=== PATIENT | male | born 1945 | race Caucasian/White ===

== ENCOUNTER → 2019-06-02 19:36 | Outpatient (CLI) | payer MEDICARE, SELFPAY ==
--- NOTE | 2019-06-02 19:38 | DI.RAD.S_ITS ---
PROCEDURE: XR HAND LT MIN 3V INDICATIONS: laceration, tendon exposed, r/o open fx TECHNIQUE: 3 views of the hand(s) acquired. COMPARISON: None. FINDINGS: Bones: No fractures or dislocations. Carpal bones are normally aligned. No suspicious bony lesions. Soft tissues: No suspicious soft tissue calcifications. IMPRESSION: No acute fracture. No osseous lesion. If clinical suspicion and/or symptoms persist, further assessment with repeat plainfilms, or advanced imaging (e.g., CT, MRI, or bone scan) may be helpful for further assessment. Dictated by: Maria Andres M.D. on 06/02/2019 at 20:01 Approved by: Maria Andres M.D. on 06/02/2019 at 20:02
== END ==
PROVIDERS: Family Provider Family Medicine; PCP Family Medicine; Visit Provider Physician Assistant
DX: S61.012A Laceration without foreign body of left thumb without damage to nail, initial encounter (principal); X58.XXXA Exposure to other specified factors, initial encounter
CPT/HCPCS: 73130

== ENCOUNTER → 2019-07-20 09:01 | Outpatient (CLI) | payer MEDICARE, SELFPAY ==
[2019-07-20 10:14] LABS: Alanine Aminotransferase 41 IU/L (<50); Albumin 4.2 g/dL (3.5-5.0); Albumin Globulin Ratio 1.5 (1.0-2.8); Alkaline Phosphatase 235 U/L (38-126); Aspartate Aminotransferase 109 IU/L (17-59); BUN Creatinine Ratio 12.9 (6-22); Bilirubin Total 1.3 mg/dL (0.2-1.3); Blood Urea Nitrogen 9 mg/dL (9-20); Calcium 9.2 mg/dL (8.4-10.2); Carbon Dioxide 28 mmol/L (22-32); Chloride 101 mmol/L (98-107); Estimated Glomerular Filt Rate > 60.0 mL/min (>60); Globulin 2.8 g/dL (1.7-4.1); Glucose 96 mg/dL (80-110); HEMOLYSIS < 15 (0-50); Sodium 137 mmol/L (137-145); Uric Acid 6.8 mg/dL (3.5-8.5)
[2019-07-20 10:30] LABS: Vitamin D 25 Hydroxy (D3) < 12.8 ng/mL (30.0-100.0)
== END ==
PROVIDERS: Family Provider Family Medicine; PCP Family Medicine; Visit Provider Student in an Organized Health Care Education/Training Program
DX: M10.9 Gout, unspecified (principal); F10.20 Alcohol dependence, uncomplicated; I10 Essential (primary) hypertension; E55.9 Vitamin D deficiency, unspecified
CPT/HCPCS: 36415; 80053; 82306; 84550

== ENCOUNTER → 2019-07-23 09:12 | Outpatient (CLI) | payer MEDICARE, SELFPAY ==
[2019-07-25 22:36] LABS: Fecal Immunochemical Test NOT DETECTED (NOT DETECTED)
== END ==
PROVIDERS: PCP Student in an Organized Health Care Education/Training Program; Visit Provider Student in an Organized Health Care Education/Training Program
DX: Z12.11 Encounter for screening for malignant neoplasm of colon (principal)
CPT/HCPCS: 82274

== ENCOUNTER 2019-07-30 10:28 | Emergency (ER) | payer MEDICARE, SELFPAY ==
[2019-07-30 10:48] VITALS: BP 130/66; PULSE 63; RESP 15; TEMP 36.4; O2SAT 98
--- NOTE | 2019-07-30 10:55 | DI.CT.S_ITS ---
PROCEDURE: CT HEAD/BRAIN WO CON INDICATIONS: double vision TECHNIQUE: Noncontrast 4.5 mm thick angled axial sections acquired from the foramen magnum to the vertex, with coronal and sagittal reformats. For radiation dose reduction, the following was used: automated exposure control, adjustment of mA and/or kV according to patient size. COMPARISON: None. FINDINGS: Image quality: Excellent. CSF spaces: Basal cisterns are patent. No extra-axial fluid collections. The ventricles are symmetric in size and shape. Brain: No intracranial bleeds or masses. There is cerebral volume loss for age, with resultant ventricular and sulcal prominence. There are periventricular and deep white matter chronic small vessel ischemic changes. There is intracranial internal carotid artery atherosclerosis. Skull and face: Calvarium and visualized facial bones appear intact, without suspicious lesions. Sinuses: There is moderate mucosal thickening seen involving the ethmoid air cells. Mucous retention cysts are seen involving the maxillary sinuses. IMPRESSION: No intracranial abnormality is seen to explain the patient's presenting symptoms. If it would be helpful for clinical management decision making, please consider a dedicated orbit protocol MRI (without and with contrast) for further evaluation (assuming that there is no contraindication). Paranasal sinus disease noted. Dictated by: Talha Langston M.D. on 07/30/2019 at 10:51 Approved by: Talha Langston M.D. on 07/30/2019 at 10:53
--- NOTE | 2019-07-30 10:58 | ED_ITS ---
HPI - Dizziness General Chief Complaint: Dizziness Stated Complaint: very faint was working outside pssible stroke Time Seen by Provider: 07/30/19 10:55 Source: patient Mode of arrival: Ambulatory Limitations: no limitations History of Present Illness HPI Narrative: Patient is a 74-year-old male who was outside putting up [employer] decorations with a bunch of his neighbors feeling sudden onset of lightheadedness. Apparently he became pale very weak and unsteady on his feet. They were able to get him to a car warm him up and within 10 minutes he was back to normal. He has absolutely no complaints in the emergency department. He never passed out he denies chest pain shortness of breath no focal deficits. He states he ate breakfast and he drink the same amount water as he normally does. Otherwise has no complaints Related Data Previous Rx's Medication Instructions Recorded cholecalciferol (vitamin D3) 50,000 unit PO QWEEK 84 Days #12 07/21/19 50,000 unit capsule cap Allergies Allergy/AdvReac Type Severity Reaction Status Date / Time No Known Allergies Allergy Uncoded 06/24/19 09:27 Review of Systems Review of Systems ROS Unobtainable: All systems reviewed & are unremarkable except as noted in HPI and below Constitutional Constitutional: Denies chills, Denies fever(s), Denies lethargy and Denies weakness Eyes Eyes: Denies blind spots, Denies blurry vision, Reports diplopia and Denies itchy eyes ENT Ears, Nose, Mouth, and Throat: Denies change in voice, Denies vertigo, Denies dizziness, Denies neck pain and Denies sore throat Cardiovascular Cardiovascular: Denies syncope, Denies dyspnea and Denies dyspnea on exertion Respiratory Respiratory: Denies cough, Denies dyspnea, Denies dyspnea on exertion and Denies wheezing Gastrointestinal Gastrointestinal: Denies abdominal pain, Denies change in bowel habits, Denies diarrhea, Denies nausea and Denies vomiting Genitourinary Genitourinary: Denies hematuria, Denies flank pain, Denies urinary incontinence and Denies urinary urgency Musculoskeletal Musculoskeletal: Denies neck pain Integumentary/Breasts Skin/Breast: Denies pruritus, Denies erythema, Denies rash and Denies wounds Neurologic Neurologic: Denies confusion, Denies vertigo, Denies dizziness, Denies syncope, Denies lack of coordination, Denies focal weakness and Denies weakness Psychiatric Psychiatric: Denies confusion Allergic/Immunologic Allergic/Immunologic: Denies itchy eyes and Denies wheezing Patient History Medical History (Updated 07/30/19 @ 12:10 by Linnea Dyson DO) Abnormal chest x-ray (Inactive) Chicken pox (Resolved) Chronic back pain (Chronic ~1981) Colon polyps (Inactive) Gout (Acute ~2007) Hearing loss (Chronic ~1983) Hemorrhoid (Inactive ~1984) History of varicose veins (Inactive ~1987) Knee pain (Inactive ~1965) Measles (Resolved) Migraines (Chronic ~1971) Mumps (Resolved) Shoulder pain (Inactive ~1965) Skin cancer (Inactive ~1983) Vision disorder (Chronic) Surgical History (Updated 06/22/19 @ 21:58 by Nicole Toscano) Anesthesia (Resolved) History of back surgery (Resolved ~2005) History of right knee surgery (Resolved ~1990) Family History (Updated 06/22/19 @ 22:00 by Nicole Toscano) Father No problems noted. Mother Cancer Sister Cancer History of heart disease Hypertension Social History Smoking Status: Current every day smoker Exam Initial Vital Signs Initial Vital Signs: Vital Signs Temperature 97.5 F L 07/30/19 10:48 Pulse Rate 63 07/30/19 10:48 Respiratory Rate 15 07/30/19 10:48 Blood Pressure 130/66 07/30/19 10:48 Pulse Oximetry 98 07/30/19 10:48 GENERAL: Alert pleasant elderly gentleman does not appear in any acute distress HEENT: Head atraumatic,EOMI, pupils reactive, face symmetric CARDIOVASCULAR: Regular rate and rhythm without murmurs, rubs or gallops. RESPIRATORY: Breath sounds equal bilaterally, no wheezes rales or rhonchi. ABDOMEN: Soft, nontender. Normoactive bowel sounds all 4 quadrants. No guarding or rebound. EXTREMITIES: Normal range of motion, no clubbing or edema. Neurovascularly intact NEUROLOGICAL: Alert and oriented x4.Normal gait and speech. Cranial nerves II through XII grossly intact. Improvement Specialist strength equal bilaterally good lower extremity strength SKIN: Warm, dry, no laceration, no petechiae, no rashes or lesions. Scores NIH Stroke Scale Level of Conciousness: Alert, keenly responsive Ask month/age: Answers both questions correctly. Open/close eyes, close hand: Performs both tasks correctly Best gaze horizontal: Normal Visual pelletier: No visual loss Facial palsy: Normal symetrical movement Left arm drift: No drift for full 10 sec Right arm drift: No drift for full 10 sec Left leg drift: No drift for full 10 sec Right leg drift: No drift for full 10 sec Limb ataxia: Absent Sensory on face/arms/legs: Normal, no sensory loss Best language: No aphasia, normal Dysarthria: Normal Extinction or inattention: No abnormality Total NIH Stroke scale score: 0 Course Orders Ordered: ED Orders 07/30/19 10:55 CT head/brain wo con Stat Complete Blood Count AUTO DIFF Stat Comprehensive Metabolic Panel Stat Partial Thromboplastin Time Stat Prothrombin Time INR Stat Discontinued Medications Sodium Chloride (Normal Saline 0.9%) 1,000 mls @ 1,000 mls/hr IV CONT ALEXSANDER Last Infusion: 07/30/19 12:23 Dose: 0 mls/hr Documented by: Admin: 07/30/19 11:32 Dose: 1,000 mls/hr Documented by: ELMOARRINGTO Vital Signs Vital signs: Vital Signs - 8 hr 07/30/19 10:48 07/30/19 11:06 07/30/19 11:50 Temperature 97.5 F L Pulse Rate 63 67 73 Respiratory Rate 15 17 Blood Pressure 130/66 Blood Pressure [Left Arm] 103/49 L 133/82 Pulse Oximetry 98 97 96 07/30/19 12:23 Temperature Pulse Rate 74 Respiratory Rate 17 Blood Pressure Blood Pressure [Left Arm] 151/80 H Pulse Oximetry 97 MDM - Dizziness Lab Data Attestation: I reviewed the patient's lab results. Result diagrams: 07/30/19 10:55 07/30/19 10:55 Labs: Lab Results 07/30/19 07/30/19 07/30/19 Range/Units 10:55 10:55 10:55 WBC 7.2 (4.5-11.0) X10^3/uL RBC 4.52 (4.5-5.9) X10^6/uL Hgb 15.0 (13.5-17.5) g/dL Hct 44.0 (41-53) % MCV 97.3 (80-100) fL MCH 33.2 (26-34) PG MCHC 34.1 (30-36) % RDW 13.9 (11.6-14.8) % Plt Count 215 (150-400) X10^3/uL Neut % (Auto) 69.4 (50-75) % Lymph % (Auto) 17.9 L (25-40) % [place] % (Auto) 10.8 (3-14) % Eos % (Auto) 1.2 L (2-4) % Baso % (Auto) 0.7 (0-2) % Neut # (Auto) 5000 (0728-1122) /uL Lymph # (Auto) 1300 (2385-9227) /uL [place] # (Auto) 800 (0-900) /uL Eos # (Auto) 100 (0-450) /uL Baso # (Auto) 0 (0-100) /uL PT 12.9 H (10.1-12.7) SECONDS INR 1.1 (0.9-1.3) APTT 32 (26.4-36.2) SECONDS Sodium 138 (137-145) mmol/L Potassium 3.7 (3.4-5.1) mmol/L Chloride 102 (98-107) mmol/L Carbon Dioxide 25 (22-32) mmol/L BUN 14 (9-20) mg/dL Creatinine 0.70 (0.66-1.25) mg/dL Estimated GFR > 60.0 (>60) mL/min BUN/Creatinine Ratio 20.0 (6-22) Glucose 120 H (80-110) mg/dL Calcium 9.0 (8.4-10.2) mg/dL Total Bilirubin 1.5 H (0.2-1.3) mg/dL AST 90 H (17-59) IU/L ALT 35 (<50) IU/L Alkaline Phosphatase 227 H (38-126) U/L Total Protein 7.0 (6.3-8.2) g/dL Albumin 4.2 (3.5-5.0) g/dL Globulin 2.8 (1.7-4.1) g/dL Albumin/Globulin Ratio 1.5 (1.0-2.8) Point of Care Testing Glucose POC [address] scan - head: Radiologist's impression: PROCEDURE: CT HEAD/BRAIN WO CON INDICATIONS: double vision TECHNIQUE: Noncontrast 4.5 mm thick angled axial sections acquired from the foramen magnum to the vertex, with coronal and sagittal reformats. For radiation dose reduction, the following was used: automated exposure control, adjustment of mA and/or kV according to patient size. COMPARISON: None. FINDINGS: Image quality: Excellent. CSF spaces: Basal cisterns are patent. No extra-axial fluid collections. The ventricles are symmetric in size and shape. Brain: No intracranial bleeds or masses. There is cerebral volume loss for age, with resultant ventricular and sulcal prominence. There are periventricular and deep white matter chronic small vessel ischemic changes. There is intracranial internal carotid artery atherosclerosis. Skull and face: Calvarium and visualized facial bones appear intact, without suspicious lesions. Sinuses: There is moderate mucosal thickening seen involving the ethmoid air cells. Mucous retention cysts are seen involving the maxillary sinuses. IMPRESSION: No intracranial abnormality is seen to explain the patient's presenting symptoms. If it would be helpful for clinical management decision making, please consider a dedicated orbit protocol MRI (without and with contrast) for further evaluation (assuming that there is no contraindication). Paranasal sinus disease noted. Dictated by: Talha Langston M.D. on 07/30/2019 at 10:51 ECG Data Attestation: I personally reviewed and interpreted this ECG as follows: Prior ECG tracings: not available for review Interpretation: Normal sinus rhythm rate [address] elevations or depressions or T-wave inversions no prior to compare p.r. interval 160 QRS 129 QTC 446 MDM Narrative Medical decision making narrative: The patient's symptoms started and stopped abruptly. It sounds almost like vasovagal like reaction. He was completely back to normal and about 10 minutes and as soon as he sat down. He says that he did not quite eat his normal food yesterday due to the holiday, lots of increased sugar. He has felt back to his normal self ever since he has been in the emergency department and feels ready and able to go home. Discharge Plan Departure Patient Disposition: Home Clinical Impression: Near syncope Discharge Date/Time: 07/30/19 12:25 Instructions: DI for Syncope in Adults (Fainting) Activity Restrictions/Additional Instructions: *You have been diagnosed with near syncope *What to do: At this time blood work and CT scan of head overall reassuring. Increase fluid intake *Continue to take medications as directed *Follow up with your primary care provider in 2-3 days *Return to ER if you should have recurrent episode, passing out, chest pain, palpitations weakness difficulty speaking or any new, worsening or concerning symptoms Prescriptions: No Action cholecalciferol (vitamin D3) 50,000 unit capsule 50,000 unit PO QWEEK 84 Days Qty: 12 RF: 0 Referrals: Sb Silva MD [Primary Care Provider] -
[2019-07-30 11:06] VITALS: BP 103/49; PULSE 67; O2SAT 97
[2019-07-30 11:16] LABS: INR 1.1 (0.9-1.3); Prothrombin Time 12.9 SECONDS (10.1-12.7)
[2019-07-30 11:17] LABS: Add Manual Diff / Slide Review NO; Basophils Absolute Auto 0 /uL (0-100); Basophils Percent Auto 0.7 % (0-2); Eosinophils Absolute Auto 100 /uL (0-450); Eosinophils Percent Auto 1.2 % (2-4); Lymphocytes Absolute Auto 1300 /uL (1100-4500); Lymphocytes Percent Auto 17.9 % (25-40); Mean Corpuscular HGB Conc 34.1 % (30-36); Mean Corpuscular Hemoglobin 33.2 PG (26-34); Mean Corpuscular Volume 97.3 fL (80-100); Monocytes Absolute Auto 800 /uL (0-900); Monocytes Percent Auto 10.8 % (3-14); Neutrophils Absolute Auto 5000 /uL (1500-7000); Neutrophils Percent Auto 69.4 % (50-75); Platelet Count 215 X10^3/uL (150-400); Red Blood Cell Count 4.52 X10^6/uL (4.5-5.9); Red Cell Distribution Width 13.9 % (11.6-14.8); White Blood Cell Count 7.2 X10^3/uL (4.5-11.0)
[2019-07-30 11:18] LABS: PTT Partial Thromboplastin Tim 32 SECONDS (26.4-36.2)
[2019-07-30 11:22] LABS: Alanine Aminotransferase 35 IU/L (<50); Albumin 4.2 g/dL (3.5-5.0); Albumin Globulin Ratio 1.5 (1.0-2.8); Alkaline Phosphatase 227 U/L (38-126); Aspartate Aminotransferase 90 IU/L (17-59); Bilirubin Total 1.5 mg/dL (0.2-1.3); Blood Urea Nitrogen 14 mg/dL (9-20); Carbon Dioxide 25 mmol/L (22-32); Chloride 102 mmol/L (98-107); Estimated Glomerular Filt Rate > 60.0 mL/min (>60); Globulin 2.8 g/dL (1.7-4.1); Glucose 120 mg/dL (80-110); HEMOLYSIS < 15 (0-50); Potassium 3.7 mmol/L (3.4-5.1); Sodium 138 mmol/L (137-145)
[2019-07-30] MEDS: SODIUM CHLORIDE 0.9% 1,000 ML 1000 ML IV (11:32)
[2019-07-30 11:50] VITALS: BP 133/82; PULSE 73; RESP 17; O2SAT 96
[2019-07-30 12:23] VITALS: BP 151/80; PULSE 74; RESP 17; O2SAT 97
== END 2019-07-30 12:25 | disposition home or self-care (01) ==
PROVIDERS: Emergency Provider Emergency Medicine; PCP Student in an Organized Health Care Education/Training Program
DX: R55 Syncope and collapse (principal); H53.2 Diplopia
CPT/HCPCS: 36415; 70450; 80053; 82962; 85025; 85610; 85730; 93005; 99283; 99285

== ENCOUNTER → 2019-09-13 12:33 | Outpatient (CLI) | payer MEDICARE, SELFPAY ==
[2019-09-13 14:26] LABS: Phosphorous 5.1 mg/dL (2.3-3.7)
[2019-09-15 16:52] LABS: Parathyroid Hormone Int 32 pg/mL (14-64)
[2019-09-16 18:09] LABS: Alkaline Phosphatase 177 U/L (40-115)
[2019-09-18 08:39] LABS: Hepatitis A Antibody IgM NONREACTIVE; Hepatitis Acute Panel Interp 0.01; Hepatitis B Core Antibody IgM NONREACTIVE; Hepatitis B Surface Antigen NONREACTIVE; Hepatitis C Antibody NONREACTIVE
== END ==
PROVIDERS: PCP Student in an Organized Health Care Education/Training Program; Visit Provider Student in an Organized Health Care Education/Training Program
DX: E55.9 Vitamin D deficiency, unspecified (principal); F10.20 Alcohol dependence, uncomplicated
CPT/HCPCS: 36415; 80074; 83516; 83970; 84080; 84100

== ENCOUNTER → 2019-10-31 08:13 | Outpatient (CLI) | payer MEDICARE, SELFPAY ==
[2019-10-31 09:10] LABS: Alanine Aminotransferase 43 IU/L (<50); Albumin 4.3 g/dL (3.5-5.0); Albumin Globulin Ratio 1.3 (1.0-2.8); Alkaline Phosphatase 186 U/L (38-126); Aspartate Aminotransferase 72 IU/L (17-59); BUN Creatinine Ratio 22.9 (6-22); Bilirubin Total 1.4 mg/dL (0.2-1.3); Blood Urea Nitrogen 16 mg/dL (9-20); Carbon Dioxide 28 mmol/L (22-32); Chloride 98 mmol/L (98-107); Estimated Glomerular Filt Rate > 60.0 mL/min (>60); Globulin 3.4 g/dL (1.7-4.1); Glucose 92 mg/dL (80-110); HEMOLYSIS < 15 (0-50); Phosphorous 4.1 mg/dL (2.3-3.7); Potassium 4.2 mmol/L (3.4-5.1); Sodium 138 mmol/L (137-145); Total Protein 7.7 g/dL (6.3-8.2)
[2019-10-31 09:42] LABS: Vitamin D 25 Hydroxy (D3) 80.8 ng/mL (30.0-100.0)
== END ==
PROVIDERS: PCP Student in an Organized Health Care Education/Training Program; Referring Provider Student in an Organized Health Care Education/Training Program; Visit Provider Student in an Organized Health Care Education/Training Program
DX: E55.9 Vitamin D deficiency, unspecified (principal); R94.5 Abnormal results of liver function studies
CPT/HCPCS: 36415; 80053; 82306; 84100

== ENCOUNTER → 2020-09-28 14:38 | Outpatient (CLI) | payer MEDICARE, SELFPAY ==
[2020-09-28] MEDS: COVID-19 VACC #1, MRNA(MOD) 100 MCG/0.5 ML VIAL IM (15:01)
== END ==
PROVIDERS: PCP Student in an Organized Health Care Education/Training Program; Visit Provider Internal Medicine
DX: Z23 Encounter for immunization (principal)
CPT/HCPCS: 0011A; 91301

== ENCOUNTER → 2020-10-26 14:42 | Outpatient (CLI) | payer MEDICARE, SELFPAY ==
[2020-10-26] MEDS: COVID-19 VACC #2, MRNA(MOD) 100 MCG/0.5 ML VIAL IM (14:49)
== END ==
PROVIDERS: PCP Student in an Organized Health Care Education/Training Program; Visit Provider Internal Medicine
DX: Z23 Encounter for immunization (principal)
CPT/HCPCS: 0012A; 91301

== ENCOUNTER → 2020-11-08 10:55 | Outpatient (CLI) | payer MEDICARE, SELFPAY ==
[2020-11-08 11:55] LABS: Hematocrit 44.7 % (41-53); Hemoglobin 15.2 g/dL (13.5-17.5); Mean Corpuscular HGB Conc 33.9 % (30-36); Mean Corpuscular Hemoglobin 31.4 PG (26-34); Mean Corpuscular Volume 92.8 fL (80-100); Platelet Count 181 X10^3/uL (150-400); Red Blood Cell Count 4.82 X10^6/uL (4.5-5.9); Red Cell Distribution Width 14.4 % (11.6-14.8); White Blood Cell Count 6.5 X10^3/uL (4.5-11.0)
[2020-11-08 13:03] LABS: Alanine Aminotransferase 21 IU/L (<50); Albumin Globulin Ratio 1.3 (1.0-2.8); Alkaline Phosphatase 409 U/L (38-126); Aspartate Aminotransferase 54 IU/L (17-59); BUN Creatinine Ratio 17.6 (6-22); Bilirubin Direct 0.6 mg/dL (0.0-0.4); Bilirubin Total 2.2 mg/dL (0.2-1.3); Blood Urea Nitrogen 9 mg/dL (9-20); Calcium 9.3 mg/dL (8.4-10.2); Carbon Dioxide 26 mmol/L (22-32); Chloride 103 mmol/L (98-107); Estimated Glomerular Filt Rate > 60.0 mL/min (>60); Glucose 95 mg/dL (80-110); HEMOLYSIS < 15 (0-50); Potassium 3.9 mmol/L (3.4-5.1); Sodium 137 mmol/L (137-145)
== END ==
PROVIDERS: PCP Student in an Organized Health Care Education/Training Program; Referring Provider Student in an Organized Health Care Education/Training Program; Visit Provider Student in an Organized Health Care Education/Training Program
DX: F10.20 Alcohol dependence, uncomplicated (principal); R94.5 Abnormal results of liver function studies
CPT/HCPCS: 36415; 80053; 82248; 85027

== ENCOUNTER 2020-12-10 16:32 | Emergency (ER) | payer MEDICARE, SELFPAY ==
[2020-12-10] VITALS (7 sets, daily range): BP systolic 137–164; BP diastolic 82–87; PULSE 93–106; RESP 18–27; TEMP 36.8; O2SAT 91–96; BMI 29.0
[2020-12-10 17:31] LABS: Add Manual Diff / Slide Review NO; Basophils Absolute Auto 100 /uL (0-100); Basophils Percent Auto 0.8 % (0-2); Eosinophils Absolute Auto 100 /uL (0-450); Eosinophils Percent Auto 0.7 % (2-4); Hemoglobin 15.7 g/dL (13.5-17.5); Lymphocytes Absolute Auto 1000 /uL (1100-4500); Lymphocytes Percent Auto 14.9 % (25-40); Mean Corpuscular HGB Conc 33.5 % (30-36); Mean Corpuscular Hemoglobin 30.5 PG (26-34); Monocytes Absolute Auto 1000 /uL (0-900); Monocytes Percent Auto 14.4 % (3-14); Neutrophils Absolute Auto 4800 /uL (1500-7000); Neutrophils Percent Auto 69.2 % (50-75); Platelet Count 230 X10^3/uL (150-400); Red Blood Cell Count 5.16 X10^6/uL (4.5-5.9); Red Cell Distribution Width 14.2 % (11.6-14.8); White Blood Cell Count 6.9 X10^3/uL (4.5-11.0)
[2020-12-10 17:43] LABS: Lactate (Lactic Acid) 1.7 mmol/L (0.7-2.1)
[2020-12-10 17:45] LABS: Alanine Aminotransferase 31 IU/L (<50); Albumin 3.7 g/dL (3.5-5.0); Albumin Globulin Ratio 1.2 (1.0-2.8); Alkaline Phosphatase 505 U/L (38-126); Aspartate Aminotransferase 59 IU/L (17-59); BUN Creatinine Ratio 15.6 (6-22); Blood Urea Nitrogen 7 mg/dL (9-20); Calcium 9.2 mg/dL (8.4-10.2); Carbon Dioxide 21 mmol/L (22-32); Chloride 101 mmol/L (98-107); Estimated Glomerular Filt Rate > 60.0 mL/min (>60); Globulin 3.1 g/dL (1.7-4.1); Glucose 91 mg/dL (80-110); Lipase 109 U/L (23-300); Sodium 134 mmol/L (137-145); Total Protein 6.8 g/dL (6.3-8.2)
--- NOTE | 2020-12-10 17:47 | DI.CT.S_ITS ---
PROCEDURE: CT ABDOMEN PELVIS W CON INDICATIONS: IV contrast only/abdominal pain and swelling TECHNIQUE: After the administration of intravenous contrast, 5 mm thick sections acquired from the diaphragm to the symphysis. 5 mm coronal and sagittal reformats were acquired. For radiation dose reduction, the following was used: automated exposure control, adjustment of mA and/or kV according to patient size. COMPARISON: None. FINDINGS: Image quality: Excellent. ABDOMEN: Lung bases: Lung bases are clear except for posterior layering small left pleural effusion water in density and free-flowing in appearance. Heart size is normal. Solid organs: Liver is mildly reduced in size, nodular in margination, and near normal in enhancement. The spleen is mildly enlarged and normal in enhancement. Gallbladder contains posterior layering small calcified stones. Biliary system is non dilated. Pancreas enhances normally. Spleen is normal in size and enhancement. No adrenal nodules. Kidneys demonstrate normal size and enhancement, without hydronephrosis. Peritoneum and bowel: Bowel loops demonstrate normal wall thickness and caliber. No free air. There is generalized 4 quadrant ascites. Nodes and vessels: No retroperitoneal or mesenteric adenopathy by size criteria. Aorta and inferior vena cava are normal in size. Miscellaneous: No ventral hernias. PELVIS: Genitourinary: Bladder wall thickness is normal. Miscellaneous: No inguinal hernias or adenopathy. A moderately large amount of ascites is again noted within the pelvis. Bones: No suspicious bony lesions. No vertebral body compression fractures. IMPRESSION: Small pleural effusion on the left. Secondary mild left lung base atelectasis. A relatively large amount of ascites is present, in the setting of a small nodular liver and AA mildly enlarged spleen. Portal hypertension and secondary ascites is the presumed cause. Note is made of multiple small dependent layering gallstones within the gallbladder lumen. Dictated by: Noe Recio M.D. on 12/10/2020 at 18:10 Approved by: Noe Recio M.D. on 12/10/2020 at 18:17
--- NOTE | 2020-12-10 17:50 | ED_ITS ---
HPI - Abdominal Pain General Stated Complaint: BLOCKED BOWEL STOMACH SWELLING Time Seen by Provider: 12/10/20 17:30 Source: patient Mode of arrival: Ambulatory Limitations: no limitations History of Present Illness HPI narrative: Patient complains of abdominal swelling and distention for the past 2 months getting worse in the past week. No bowel movement in the past 1 week. Patient admits daily alcohol use/abuse. Patient states he knows he has elevated bilirubin because his family doctor has been following his liver studies. No hallucinations no falls or injuries. No black stools. No trouble breathing. Related Data Home Medications Medication Instructions Recorded Confirmed No Known Home Medications 11/08/20 11/08/20 Allergies Allergy/AdvReac Type Severity Reaction Status Date / Time No Known Drug Allergies Allergy Verified 12/10/20 17:03 Review of Systems Review of Systems Narrative: GENERAL: Denies chills, fatigue, malaise, fever, sweats. HEENT: Denies sinus pain, ear pain, sore throat RESPIRATORY: Denies dyspnea, cough CARDIOVASCULAR: Denies chest pain, palpitations GASTROINTESTINAL: Denies nausea, vomiting, complains constipation and abdominal pain : Denies dysuria, frequency, hematuria MUSCULOSKELETAL: denies muscle or bony pain SKIN: Denies rash, skin lesions NEUROLOGIC: Denies weakness, numbness ROS Unobtainable: All systems reviewed & are unremarkable except as noted in HPI and below Patient History Medical History Abnormal chest x-ray Chicken pox Chronic back pain (~1981) Colon polyps Gout (~2007) Hearing loss (~1983) Hemorrhoid (~1984) History of varicose veins (~1987) Knee pain (~1965) 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) Measles Migraines (~1971) Mumps Shoulder pain (~1965) Skin cancer (~1983) Vision disorder Surgical History Anesthesia History of back surgery (~2005) History of right knee surgery (~1990) Family History Father No problems noted. Mother Cancer Sister Cancer History of heart disease Hypertension Social History Smoking Status: Current every day smoker Smoking Status: Current every day smoker alcohol intake frequency: 3 or more drinks per day Alcohol type: hard liquor Substance Use Type: does not use Exam Narrative Exam Narrative: GENERAL: in no distress, not toxic not dyspneic HEAD: Normocephalic. EYES: Pupils equal round No scleral icterus. No injection no discharge no icterus ENT: Mucous membranes moist. NECK: Trachea midline. CARDIOVASCULAR: Regular rate and rhythm without murmurs RESPIRATORY: Clear to auscultation. Breath sounds equal bilaterally. No wheezes, rales, or rhonchi. GASTROINTESTINAL: Abdomen soft, non-tender, extensive distension. Nontender. Bowel sounds present. EXTREMITIES: No gross deformities. BACK: No flank tenderness. NEURO: AOx4. SKIN: Warm and dry, no jaundice PSYCH: Not anxious, is cooperative Initial Vital Signs Initial Vital Signs: Vital Signs Pulse Rate 102 H 12/10/20 16:55 Blood Pressure 137/84 12/10/20 16:55 Pulse Oximetry 96 12/10/20 16:55 Course Course Course Narrative: No new issues during course of stay Orders Ordered: ED Orders 12/10/20 17:01 EKG-12 Lead Stat 12/10/20 17:05 Complete Blood Count AUTO DIFF Stat Comprehensive Metabolic Panel Stat Lactate (Lactic Acid) Stat Lipase Stat Partial Thromboplastin Time Stat Procalcitonin Stat Prothrombin Time INR Stat 12/10/20 17:47 CT abdomen pelvis w con Stat Discontinued Medications Sodium Chloride (Normal Saline 0.9%) 250 mls @ 1,000 mls/hr IV NOW ONE Stop: 12/10/20 18:01 Last Admin: 12/10/20 18:11 Dose: 1,000 mls/hr Documented by: RUBIN Ondansetron HCl (Ondansetron 4 Mg/2 Ml Inj) 4 mg IV NOW ONE Stop: 12/10/20 17:02 Last Admin: 12/10/20 18:10 Dose: 4 mg Documented by: RUBIN Ondansetron HCl (Ondansetron 4 Mg/2 Ml Inj) 4 mg IV NOW ONE Stop: 12/10/20 18:07 Last Admin: 12/10/20 18:11 Dose: Not Given Documented by: RUBIN Reevaluation(s) Reevaluation #1: Reviewed results with patient. Informed him ascites likely from chronic alcohol use. Not toxic. Paracentesis can be done in office and with GI referral. He agrees with treatment plan. In no distress. Time: 18:44 Consultations Consultation #1: Spoke with primary care boot and saddle repair person, Dr. Martinez, she will inform Dr. Coyne in the morning for follow-up this week and to get GI referral and paracentesis. Patient in no distress. He does not want admit tonight. Time: 18:58 Vital Signs Vital signs: Vital Signs - 8 hr 12/10/20 16:55 12/10/20 17:00 12/10/20 17:08 Temperature 98.2 F Pulse Rate 102 H 99 H 106 H Respiratory Rate 18 Blood Pressure 137/84 137/84 Pulse Oximetry 96 94 95 12/10/20 17:30 12/10/20 18:08 12/10/20 18:09 Temperature Pulse Rate 97 H 94 H 95 H Respiratory Rate 23 27 H Blood Pressure 164/87 H Pulse Oximetry 91 95 96 12/10/20 18:30 Temperature Pulse Rate 93 H Respiratory Rate 27 H Blood Pressure 141/82 H Pulse Oximetry 94 MDM - Abdominal Pain Differential Diagnosis Differential diagnosis: Likely abdominal pain, constipation and other (Ascites) Medical Records Attestation: I reviewed the patient's medical records. Lab Data Attestation: I reviewed the patient's lab results. Result diagrams: 12/10/20 17:05 12/10/20 17:05 Labs: Lab Results 12/10/20 12/10/20 12/10/20 Range/Units 17:05 17:05 17:05 WBC 6.9 (4.5-11.0) X10^3/uL RBC 5.16 (4.5-5.9) X10^6/uL Hgb 15.7 (13.5-17.5) g/dL Hct 47.0 (41-53) % MCV 91.0 (80-100) fL MCH 30.5 (26-34) PG MCHC 33.5 (30-36) % RDW 14.2 (11.6-14.8) % Plt Count 230 (150-400) X10^3/uL Neut % (Auto) 69.2 (50-75) % Lymph % (Auto) 14.9 L (25-40) % [place] % (Auto) 14.4 H (3-14) % Eos % (Auto) 0.7 L (2-4) % Baso % (Auto) 0.8 (0-2) % Neut # (Auto) 4800 (5047-0423) /uL Lymph # (Auto) 1000 L (7825-5927) /uL [place] # (Auto) 1000 H (0-900) /uL Eos # (Auto) 100 (0-450) /uL Baso # (Auto) 100 (0-100) /uL PT 17.5 H (10.1-12.7) SECONDS INR 1.5 H (0.9-1.3) APTT 37 H D (26.4-36.2) SECONDS Sodium 134 L (137-145) mmol/L Potassium 4.0 (3.4-5.1) mmol/L Chloride 101 (98-107) mmol/L Carbon Dioxide 21 L (22-32) mmol/L BUN 7 L (9-20) mg/dL Creatinine 0.45 L (0.66-1.25) mg/dL Estimated GFR > 60.0 (>60) mL/min BUN/Creatinine Ratio 15.6 (6-22) Glucose 91 (80-110) mg/dL Lactate (0.7-2.1) mmol/L Calcium 9.2 (8.4-10.2) mg/dL Total Bilirubin 3.0 H (0.2-1.3) mg/dL AST 59 (17-59) IU/L ALT 31 (<50) IU/L Alkaline Phosphatase 505 H (38-126) U/L Total Protein 6.8 (6.3-8.2) g/dL Albumin 3.7 (3.5-5.0) g/dL Globulin 3.1 (1.7-4.1) g/dL Albumin/Globulin Ratio 1.2 (1.0-2.8) Lipase 109 (23-300) U/L Procalcitonin 0.13 (<0.5) ng/mL 12/10/20 Range/Units 17:05 WBC (4.5-11.0) X10^3/uL RBC (4.5-5.9) X10^6/uL Hgb (13.5-17.5) g/dL Hct (41-53) % MCV (80-100) fL MCH (26-34) PG MCHC (30-36) % RDW (11.6-14.8) % Plt Count (150-400) X10^3/uL Neut % (Auto) (50-75) % Lymph % (Auto) (25-40) % [place] % (Auto) (3-14) % Eos % (Auto) (2-4) % Baso % (Auto) (0-2) % Neut # (Auto) (4946-3254) /uL Lymph # (Auto) (8196-0710) /uL [place] # (Auto) (0-900) /uL Eos # (Auto) (0-450) /uL Baso # (Auto) (0-100) /uL PT (10.1-12.7) SECONDS INR (0.9-1.3) APTT (26.4-36.2) SECONDS Sodium (137-145) mmol/L Potassium (3.4-5.1) mmol/L Chloride (98-107) mmol/L Carbon Dioxide (22-32) mmol/L BUN (9-20) mg/dL Creatinine (0.66-1.25) mg/dL Estimated GFR (>60) mL/min BUN/Creatinine Ratio (6-22) Glucose (80-110) mg/dL Lactate 1.7 (0.7-2.1) mmol/L Calcium (8.4-10.2) mg/dL Total Bilirubin (0.2-1.3) mg/dL AST (17-59) IU/L ALT (<50) IU/L Alkaline Phosphatase (38-126) U/L Total Protein (6.3-8.2) g/dL Albumin (3.5-5.0) g/dL Globulin (1.7-4.1) g/dL Albumin/Globulin Ratio (1.0-2.8) Lipase (23-300) U/L Procalcitonin (<0.5) ng/mL Imaging Data CT scan - abdomen/pelvis: Radiologist's Impression: [address] [id number] Scan ReportSigned Patient: Imtiaz Barbosa LMR#: [id number]: 4Acct:[id number]/Sex: 75 / MDate of Service: 12/10/20Loc: EDAccession Number: [id number] Procedure: CT abdomen pelvis w con Ordering Provider: Owen Kitchen MD PROCEDURE: CT ABDOMEN PELVIS W CON INDICATIONS: IV contrast only/abdominal pain and swelling TECHNIQUE: After the administration of intravenous contrast, 5 mm thick sections acquired from the diaphragm to the symphysis. 5 mm coronal and sagittal reformats were acquired. For radiation dose reduction, the following was used: automated exposure control, adjustment of mA and/or kV according to patient size. COMPARISON: None. FINDINGS: Image quality: Excellent. ABDOMEN: Lung bases: Lung bases are clear except for posterior layering small left pleural effusion water in density and free-flowing in appearance. Heart size is normal. Solid organs: Liver is mildly reduced in size, nodular in margination, and near normal in enhancement. The spleen is mildly enlarged and normal in enhancement. Gallbladder contains posterior layering small calcified stones. Biliary system is non dilated. Pancreas enhances normally. Spleen is normal in size and enhancement. No adrenal nodules. Kidneys demonstrate normal size and enhancement, without hydronephrosis. Peritoneum and bowel: Bowel loops demonstrate normal wall thickness and caliber. No free air. There is generalized 4 quadrant ascites. Nodes and vessels: No retroperitoneal or mesenteric adenopathy by size criteria. Aorta and inferior vena cava are normal in size. Miscellaneous: No ventral hernias. PELVIS: Genitourinary: Bladder wall thickness is normal. Miscellaneous: No inguinal hernias or adenopathy. A moderately large amount of ascites is again noted within the pelvis. Bones: No suspicious bony lesions. No vertebral body compression fractures. IMPRESSION: Small pleural effusion on the left. Secondary mild left lung base atelectasis. A relatively large amount of ascites is present, in the setting of a small nodular liver and AA mildly enlarged spleen. Portal hypertension and secondary ascites is the presumed cause. Note is made of multiple small dependent layering gallstones within the gallbladder lumen. Dictated by: Noe Recio M.D. on 12/10/2020 at 18:10 Approved by: Noe Recio M.D. on 12/10/2020 at 18:17 ECG Data Attestation: I personally reviewed and interpreted this ECG as follows: Interpretation: Sinus rhythm. Right bundle branch block. Rate 95. No ST elevation MDM Narrative Medical decision making narrative: Ongoing 2 months. No altered mental status. Not toxic. No dyspnea Appropriate for discharge home. Patient does not want stay in the hospital. Ongoing for 2 months, appropriate for GI for paracentesis or in primary care office. 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 Return if worse if any questions or concerns or if any confusion or nausea or vomiting Prescriptions: No Action No Known Home Medications RF: 0 Referrals: Sb Silva MD [Primary Care Provider] -
[2020-12-10 18:01] LABS: Procalcitonin 0.13 ng/mL (<0.5)
[2020-12-10 18:09] LABS: INR 1.5 (0.9-1.3); Prothrombin Time 17.5 SECONDS (10.1-12.7)
[2020-12-10] MEDS: ONDANSETRON 4 MG/2 ML INJ IV (18:10)
[2020-12-10] MEDS: SODIUM CHLORIDE 0.9% 250 ML 1000 ML IV (18:11)
[2020-12-10 18:12] LABS: PTT Partial Thromboplastin Tim 37 SECONDS (26.4-36.2)
== END 2020-12-10 19:15 | disposition home or self-care (01) ==
PROVIDERS: Emergency Provider Emergency Medicine; PCP Student in an Organized Health Care Education/Training Program
DX: K70.11 Alcoholic hepatitis with ascites (principal)
CPT/HCPCS: 36415; 74177; 80053; 83605; 83690; 84145; 85025; 85610; 85730; 93005; 93010; 96361; 96374; 99284; J2405

== ENCOUNTER → 2021-01-18 14:01 | Outpatient (CLI) | payer MEDICARE, SELFPAY ==
[2021-01-18 14:27] LABS: INR 1.5 (0.9-1.3); Prothrombin Time 16.8 SECONDS (10.1-12.7)
[2021-01-18 14:52] LABS: Alanine Aminotransferase 31 IU/L (<50); Albumin 3.3 g/dL (3.5-5.0); Albumin Globulin Ratio 1.1 (1.0-2.8); Alkaline Phosphatase 405 U/L (38-126); Aspartate Aminotransferase 48 IU/L (17-59); BUN Creatinine Ratio 22.9 (6-22); Bilirubin Direct 0.6 mg/dL (0.0-0.4); Bilirubin Total 1.5 mg/dL (0.2-1.3); Blood Urea Nitrogen 16 mg/dL (9-20); Calcium 9.2 mg/dL (8.4-10.2); Carbon Dioxide 28 mmol/L (22-32); Chloride 103 mmol/L (98-107); Estimated Glomerular Filt Rate > 60.0 mL/min (>60); Globulin 2.9 g/dL (1.7-4.1); Glucose 105 mg/dL (80-110); HEMOLYSIS < 15 (0-50); Potassium 4.1 mmol/L (3.4-5.1); Sodium 138 mmol/L (137-145); Total Protein 6.2 g/dL (6.3-8.2)
[2021-01-18 14:59] LABS: Prealbumin 10.3 mg/dL (17.6-36.0)
== END ==
PROVIDERS: PCP Student in an Organized Health Care Education/Training Program; Referring Provider Student in an Organized Health Care Education/Training Program; Visit Provider Student in an Organized Health Care Education/Training Program
DX: F10.21 Alcohol dependence, in remission (principal); K70.11 Alcoholic hepatitis with ascites; K70.31 Alcoholic cirrhosis of liver with ascites
CPT/HCPCS: 36415; 80053; 82248; 84134; 85610

== ENCOUNTER → 2021-04-29 09:25 | Outpatient (CLI) | payer MEDICARE, SELFPAY ==
[2021-04-29 10:09] LABS: BUN Creatinine Ratio 51.9 (6-22); Blood Urea Nitrogen 42 mg/dL (9-20); Calcium 9.8 mg/dL (8.4-10.2); Carbon Dioxide 29 mmol/L (22-32); Chloride 98 mmol/L (98-107); Estimated Glomerular Filt Rate > 60.0 mL/min (>60); Glucose 87 mg/dL (80-110); HEMOLYSIS < 15 (0-50); Potassium 4.9 mmol/L (3.4-5.1); Sodium 133 mmol/L (137-145)
== END ==
PROVIDERS: PCP Student in an Organized Health Care Education/Training Program; Referring Provider Specialist; Visit Provider Specialist
DX: K70.31 Alcoholic cirrhosis of liver with ascites (principal)
CPT/HCPCS: 36415; 80048

== ENCOUNTER → 2021-09-30 08:47 | Outpatient (CLI) | payer MEDICARE, SELFPAY ==
[2021-09-30 10:17] LABS: BUN Creatinine Ratio 38.9 (6-22); Blood Urea Nitrogen 37 mg/dL (9-20); Calcium 9.8 mg/dL (8.4-10.2); Carbon Dioxide 30 mmol/L (22-32); Chloride 95 mmol/L (98-107); Estimated Glomerular Filt Rate > 60.0 mL/min (>60); Glucose 100 mg/dL (80-110); HEMOLYSIS < 15 (0-50); Potassium 4.3 mmol/L (3.4-5.1); Sodium 133 mmol/L (137-145)
== END ==
PROVIDERS: PCP Student in an Organized Health Care Education/Training Program; Referring Provider Specialist; Visit Provider Specialist
DX: K74.60 Unspecified cirrhosis of liver (principal)
CPT/HCPCS: 36415; 80048

== ENCOUNTER → 2021-12-05 08:51 | Outpatient (CLI) | payer MEDICARE, SELFPAY ==
[2021-12-05 10:37] LABS: BUN Creatinine Ratio 58.6 (6-22); Blood Urea Nitrogen 65 mg/dL (9-20); Calcium 9.6 mg/dL (8.4-10.2); Carbon Dioxide 25 mmol/L (22-32); Chloride 91 mmol/L (98-107); Estimated Glomerular Filt Rate > 60.0 mL/min (>60); Glucose 94 mg/dL (80-110); HEMOLYSIS < 15 (0-50); Potassium 5.3 mmol/L (3.4-5.1); Sodium 128 mmol/L (137-145)
== END ==
PROVIDERS: PCP Student in an Organized Health Care Education/Training Program; Referring Provider Specialist; Visit Provider Specialist
DX: K74.60 Unspecified cirrhosis of liver (principal)
CPT/HCPCS: 36415; 80048

== ENCOUNTER 2022-01-02 06:53 | Inpatient (IN) | payer MEDICARE, SELFPAY ==
[2022-01-02] VITALS (43 sets, daily range): BP systolic 81–206; BP diastolic 42–70; PULSE 58–71; RESP 12–24; TEMP 36.1–37.2; O2SAT 94–100; BMI 45.1; BMI 21.3
--- NOTE | 2022-01-02 | DI.RAD.S_ITS ---
PROCEDURE: XR HIP W PEL IF DONE LT 2V INDICATIONS: LEFT ORIF CANNULATED SCREWS TECHNIQUE: 2 views of the hip were acquired. COMPARISON: [facility], CR, XR HIP W PEL IF DONE LT 2V, 01/02/2022, 7:41. FINDINGS: ORIF of left femoral neck fracture. There are surgical pins traversing the femoral neck. IMPRESSION: ORIF of left femoral neck fracture. Dictated by: Renate Vogel M.D. on 01/02/2022 at 20:05 Approved by: Renate Vogel M.D. on 01/02/2022 at 20:06
--- NOTE | 2022-01-02 07:10 | DI.RAD.S_ITS ---
PROCEDURE: XR HIP W PEL IF DONE LT 2V INDICATIONS: fall pain TECHNIQUE: AP pelvis with lateral view(s) of the left hip(s). COMPARISON: None. FINDINGS: Bones: Transcervical fracture of the left femoral neck. Severe left hip osteoarthritis. Moderate right hip osteoarthritis. Soft tissues: The visualized bowel gas pattern is normal. No suspicious soft tissue calcifications. IMPRESSION: Minimally displaced transcervical left femur fracture. Dictated by: Jemma Heaton MD, PhD on 01/02/2022 at 8:17 Approved by: Jemma Heaton MD, PhD on 01/02/2022 at 8:18
--- NOTE | 2022-01-02 07:10 | DI.RAD.S_ITS ---
PROCEDURE: XR CHEST 1V INDICATIONS: near syncope TECHNIQUE: One view of the chest was acquired. COMPARISON: [facility], , CHEST 2 VIEW, 06/17/2014, 10:14. FINDINGS: Surgical changes and devices: None. Lungs and pleura: Lungs are clear. No pleural effusions or pneumothorax. Mediastinum: Mediastinal contours appear normal. Heart size is normal. Bones and chest wall: No suspicious bony lesions. Overlying soft tissues appear unremarkable. IMPRESSION: No acute cardiopulmonary disease process. Dictated by: Jemma Heaton MD, PhD on 01/02/2022 at 8:16 Approved by: Jemma Heaton MD, PhD on 01/02/2022 at 8:17
[2022-01-02 07:19] LABS: Add Manual Diff / Slide Review NO; Basophils Absolute Auto 100 /uL (0-100); Basophils Percent Auto 0.8 % (0-2); Eosinophils Absolute Auto 100 /uL (0-450); Eosinophils Percent Auto 1.1 % (2-4); Hematocrit 45.2 % (41-53); Hemoglobin 15.8 g/dL (13.5-17.5); Lymphocytes Absolute Auto 600 /uL (1100-4500); Lymphocytes Percent Auto 7.5 % (25-40); Mean Corpuscular HGB Conc 34.9 % (30-36); Mean Corpuscular Hemoglobin 30.2 PG (26-34); Mean Corpuscular Volume 86.5 fL (80-100); Monocytes Absolute Auto 600 /uL (0-900); Monocytes Percent Auto 7.7 % (3-14); Neutrophils Absolute Auto 6700 /uL (1500-7000); Neutrophils Percent Auto 82.9 % (50-75); Platelet Count 228 X10^3/uL (150-400); Red Blood Cell Count 5.22 X10^6/uL (4.5-5.9); Red Cell Distribution Width 15.4 % (11.6-14.8); White Blood Cell Count 8.1 X10^3/uL (4.5-11.0)
[2022-01-02 07:26] LABS: INR 1.2 (0.9-1.3)
[2022-01-02 07:29] LABS: PTT Partial Thromboplastin Tim 32 SECONDS (26.4-36.2)
[2022-01-02 07:30] LABS: Alanine Aminotransferase 97 IU/L (<50); Albumin 5.4 g/dL (3.5-5.0); Albumin Globulin Ratio 1.3 (1.0-2.8); Alkaline Phosphatase 324 U/L (38-126); Aspartate Aminotransferase 52 IU/L (17-59); BUN Creatinine Ratio 47.6 (6-22); Bilirubin Total 2.1 mg/dL (0.2-1.3); Blood Urea Nitrogen 49 mg/dL (9-20); Carbon Dioxide 25 mmol/L (22-32); Chloride 93 mmol/L (98-107); Creatine Kinase 37 U/L (55-170); Estimated Glomerular Filt Rate > 60 mL/min (>60); Globulin 4.2 g/dL (1.7-4.1); Glucose 105 mg/dL (80-110); HEMOLYSIS < 15 (0-50); Lipase 288 U/L (23-300); Potassium 4.7 mmol/L (3.4-5.1); Sodium 132 mmol/L (137-145); Total Protein 9.6 g/dL (6.3-8.2)
--- NOTE | 2022-01-02 07:37 | ED_ITS ---
HPI - Fall General Chief Complaint: Fall Stated Complaint: near syncope, GLF, L hip pain Time Seen by Provider: 01/02/22 07:09 Source: patient and EMS Mode of arrival: EMS History of Present Illness HPI Narrative: 76-year-old male history of ascites and alcohol cirrhosis presenting today with lightheadedness and ground level fall. He says last night he got up to use the restroom as he had some burning sensation in his lower leg and foot he got lightheaded slightly off balance but can not really describe it and fell to his left side. He was able to get himself up and back into bed where he laid for a few more hours. He denies hitting his head or losing consciousness she says he was aware the whole time. He is not on any anticoagulation or anti-platelet medication. He said due to all the diuretics he is on sometimes his blood pressure drops. He denies any chest pain palpitations shortness of breath fever chills or other symptoms. Related Data Home Medications Medication Instructions Recorded Confirmed furosemide 40 mg tablet 40 mg PO DAILY 01/02/22 01/02/22 nadolol 40 mg tablet 40 mg PO DAILY 01/02/22 01/02/22 Previous Rx's Medication Instructions Recorded spironolactone 50 mg tablet 50 mg PO DAILY #30 tab 01/18/21 Allergies Allergy/AdvReac Type Severity Reaction Status Date / Time No Known Drug Allergies Allergy Verified 12/26/20 12:49 Review of Systems Review of Systems Narrative: GENERAL: Denies chills, fatigue, malaise, fever, sweats, travel HEENT: Denies sinus pain, ear pain, sore throat, difficulty swallowing, neck pain RESPIRATORY: Denies dyspnea, cough, wheezing, hemoptysis, sputum. CARDIOVASCULAR: Denies chest pain, palpitations, orthopnea, edema GASTROINTESTINAL: Denies nausea, vomiting, abdominal pain, diarrhea, constipation, melena. : Denies dysuria, frequency, incontinence, hematuria, urinary retention, flank pain. MUSCULOSKELETAL: See HPI SKIN: No rash, no erythema, no pruritus NEUROLOGIC: See HPI PSYCHIATRIC: No concerning psychosocial issues. 12 point review of systems is negative except for those stated above and HPI Patient History Medical History Abnormal chest x-ray Ascites due to alcoholic cirrhosis Chicken pox Chronic back pain (~1981) Colon polyps Gout (~2007) Hearing loss (~1983) Hemorrhoid (~1984) History of varicose veins (~1987) Knee pain (~1965) 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 Mother Cancer Sister Cancer History of heart disease Hypertension Social History marital status: household members: spouse Smoking Status: Former smoker alcohol intake: former additional social history: Lives at home with his . His uses a walker and not be able to assist him. Smoking Status: Current every day smoker alcohol intake frequency: 3 or more drinks per day Alcohol type: hard liquor Substance Use Type: does not use Exam Initial Vital Signs Initial Vital Signs: Vital Signs Temperature 97.7 F 01/02/22 07:00 Pulse Rate 61 01/02/22 07:00 Respiratory Rate 18 01/02/22 07:00 Blood Pressure 109/62 01/02/22 07:00 GENERAL: Alert pleasant 76-year-old male no acute distress HEENT: Head atraumatic,EOMI, pupils reactive, face symmetric, moist mucous membranes CARDIOVASCULAR: Regular rate and rhythm without murmurs, rubs or gallops. RESPIRATORY: Breath sounds equal bilaterally, no wheezes rales or rhonchi. ABDOMEN: Soft, nontender. Normoactive bowel sounds all 4 quadrants. No guarding or rebound. EXTREMITIES: Normal range of motion, no clubbing or edema. Neurovascularly intact Left hip mildly tender to touch legs are of equal length distal pedal pulse intact unable to lift left leg actively against gravity NEUROLOGICAL: Alert and oriented x4 no focal deficits iron assorter strength equal bilaterally SKIN: Warm, dry, no laceration, no petechiae, no rashes or lesions. Course Orders Ordered: Hydromorphone HCl (Hydromorphone 0.5 Mg Inj) 1 mg IV Q3H PRN PRN Reason: Pain, Severe (7-10) Sodium Chloride (Normal Saline 0.9%) 1,000 mls @ 50 mls/hr IV CONT ALEXSANDER Last Admin: 01/02/22 13:35 Dose: 50 mls/hr Documented by: DELL Naloxone HCl (Naloxone 0.4 Mg/Ml Vial) 0.2 mg IV Q2MIN PRN PRN Reason: Opiate Reversal Ondansetron HCl (Ondansetron 4 Mg/2 Ml Inj) 4 mg IV Q8HR PRN PRN Reason: Nausea And Vomiting Discontinued Medications Cefazolin Sodium/Dextrose (Cefazolin 2 Gm/20 Ml Syringe) 2 gm IV NOW ONE Stop: 01/02/22 18:35 Last Admin: 01/02/22 18:02 Dose: 2 gm Documented by: AFTAB Bupivacaine HCl 30 ml/ (Epinephrine HCl 0.15 mg) 0 ml INJ NOW ONE Stop: 01/02/22 18:36 Last Admin: 01/02/22 18:35 Dose: 10 ml Documented by: CHRISTIANE Fentanyl (Fentanyl 100 Mcg/2 Ml Inj) 50 mcg IV NOW ONE Stop: 01/02/22 08:46 Last Admin: 01/02/22 09:20 Dose: 50 mcg Documented by: RAYMOND Sodium Chloride (Normal Saline 0.9%) 500 mls @ 1,000 mls/hr IV BOLUS ONE Stop: 01/02/22 08:31 Last Infusion: 01/02/22 09:48 Dose: 0 mls/hr Documented by: Admin: 01/02/22 08:03 Dose: 1,000 mls/hr Documented by: RAYMOND Vital Signs Vital signs: Vital Signs - 8 hr 01/02/22 07:00 01/02/22 07:39 01/02/22 07:40 Temperature 97.7 F Pulse Rate 61 59 L 58 L Respiratory Rate 18 17 15 Blood Pressure 109/62 97/55 L Pulse Oximetry 100 99 01/02/22 07:44 01/02/22 08:02 01/02/22 08:05 Temperature Pulse Rate 60 62 62 Respiratory Rate 16 23 15 Blood Pressure 97/51 L 101/57 L Pulse Oximetry 100 94 01/02/22 08:20 01/02/22 08:30 01/02/22 08:40 Temperature Pulse Rate 61 61 61 Respiratory Rate 13 14 13 Blood Pressure 93/55 L 87/54 L Pulse Oximetry 97 97 98 05/05/22 08:42 01/02/22 08:50 Temperature Pulse Rate 62 61 Respiratory Rate 16 13 Blood Pressure 90/53 L 99/56 L Pulse Oximetry 97 98 - Fall Lab Data Result diagrams: 01/02/22 07:10 01/02/22 07:10 Labs: Lab Results 01/02/22 01/02/22 01/02/22 Range/Units 07:10 07:10 07:10 WBC 8.1 (4.5-11.0) X10^3/uL RBC 5.22 (4.5-5.9) X10^6/uL Hgb 15.8 (13.5-17.5) g/dL Hct 45.2 (41-53) % MCV 86.5 (80-100) fL MCH 30.2 (26-34) PG MCHC 34.9 (30-36) % RDW 15.4 H (11.6-14.8) % Plt Count 228 (150-400) X10^3/uL Neut % (Auto) 82.9 H (50-75) % Lymph % (Auto) 7.5 L (25-40) % [place] % (Auto) 7.7 (3-14) % Eos % (Auto) 1.1 L (2-4) % Baso % (Auto) 0.8 (0-2) % Neut # (Auto) 6700 (0127-0228) /uL Lymph # (Auto) 600 L (8534-2181) /uL [place] # (Auto) 600 (0-900) /uL Eos # (Auto) 100 (0-450) /uL Baso # (Auto) 100 (0-100) /uL PT 13.0 H (10.1-12.7) SECONDS INR 1.2 (0.9-1.3) APTT 32 (26.4-36.2) SECONDS Sodium 132 L (137-145) mmol/L Potassium 4.7 (3.4-5.1) mmol/L Chloride 93 L (98-107) mmol/L Carbon Dioxide 25 (22-32) mmol/L BUN 49 H (9-20) mg/dL Creatinine 1.03 (0.66-1.25) mg/dL Estimated GFR > 60 (>60) mL/min BUN/Creatinine Ratio 47.6 H (6-22) Glucose 105 (80-110) mg/dL Calcium 10.0 (8.4-10.2) mg/dL Total Bilirubin 2.1 H (0.2-1.3) mg/dL AST 52 (17-59) IU/L ALT 97 H (<50) IU/L Alkaline Phosphatase 324 H (38-126) U/L Total Creatine Kinase 37 L (55-170) U/L CK-MB (CK-2) TNP CK-MB (CK-2) Rel Index TNP Troponin I < 0.012 (0.01-0.034) ng/mL Total Protein 9.6 H (6.3-8.2) g/dL Albumin 5.4 H (3.5-5.0) g/dL Globulin 4.2 H (1.7-4.1) g/dL Albumin/Globulin Ratio 1.3 (1.0-2.8) Lipase 288 (23-300) U/L Imaging Data Chest x-ray: Radiologist's Impression: [address] [address] XRay Report Signed Patient: Imtiaz Barbosa MR#: [id number] : 1945 Acct:[id number] Age/Sex: 76 / M Date of Service: 01/02/22 Loc: Accession Number: [id number] ?? Procedure: XR chest 1V Ordering Provider: Linnea Dyson D.O. PROCEDURE:? XR CHEST 1V ? INDICATIONS:? near syncope ? TECHNIQUE:? One view of the chest was acquired.? ? COMPARISON:? [facility], , CHEST 2 VIEW, 06/17/2014, 10:14. ? FINDINGS:? ? Surgical changes and devices:? None.? ? Lungs and pleura:? Lungs are clear.? No pleural effusions or pneumothorax.? ? Mediastinum:? Mediastinal contours appear normal.? Heart size is normal.? ? Bones and chest wall:? No suspicious bony lesions.? Overlying soft tissues appear unremarkable.? ? IMPRESSION:? No acute cardiopulmonary disease process. ? ? Dictated by: Jemma Heaton MD, PhD on 01/02/2022 at 8:16 ?? Extremity x-ray #1: Radiologist's Impression: XRay Report Signed Patient: Imtiaz Barbosa MR#: [id number] : 1945 Acct:[id number] Age/Sex: 76 / M Date of Service: 01/02/22 Loc: ED Accession Number: [id number] ?? Procedure: XR hip w pel if done LT 2V Ordering Provider: Linnea Dyson D.O. PROCEDURE:? XR HIP W PEL IF DONE LT 2V ? INDICATIONS:? fall pain ? TECHNIQUE:? AP pelvis with lateral view(s) of the left hip(s).? ? COMPARISON:? None. ? FINDINGS:? ? Bones:? Transcervical fracture of the left femoral neck.? Severe left hip osteoarthritis. ?Moderate right hip osteoarthritis. ? Soft tissues:? The visualized bowel gas pattern is normal.? No suspicious soft tissue calcifications.? ? ? IMPRESSION:? Minimally displaced transcervical left femur fracture. ? ? ? Dictated by: Jemma Heaton MD, PhD on 01/02/2022 at 8:17 ? ? ECG Data Interpretation: Sinus rhythm versus junctional rhythm rate 59 right bundle branch block similar to previous EKG previous EKG in 2020 was clearly sinus MDM Narrative Medical decision making narrative: Patient blood pressure is noticed to be slightly low however he says it is not uncommon for it to be in the 90s. He seems to be awake alert oriented. He is given fentanyl for pain control. He was given a total of 1500 mL with EMS and in the emergency department. Blood pressure minimally responded. He is currently asymptomatic. Patient is found to have left femur fracture. Orthopedics Dr. Hu has been consulted may go to OR later this afternoon keep NPO. Dr. Velasquez has been updated patient's symptoms and accepts patient. Discharge Plan Departure Patient Disposition: Admitted As Inpatient Clinical Impression: Closed left hip fracture Admit Date/Time: 01/02/22 08:56 Admit Provider: Philip Velasquez
[2022-01-02 07:42] LABS: Troponin I < 0.012 ng/mL (0.01-0.034)
[2022-01-02] MEDS: SODIUM CHLORIDE 0.9% 500 ML 1000 ML IV (08:03)
[2022-01-02] MEDS: fentaNYL 100 MCG/2 ML INJ 50 MCG IV (09:20)
[2022-01-02 09:48] LABS: COVID19 -Nasal RAPID Negative (Negative)
--- NOTE | 2022-01-02 10:06 | PC.NURSE ---
Pt states his BP is normally low, around 90/60. Recent pressure is 81/50 after a 50mcg of fentanyl for pain control. Physician advised. Will continue to monitor.
--- NOTE | 2022-01-02 11:41 | PM.HP.1 ---
History of Present Illness History of Present Illness Date Patient Seen: 01/02/22 Time Patient Seen: 11:41 Chief complaint: near syncope, GLF, L hip pain Narrative: This is a 76-year-old male with a past medical history of alcoholic cirrhosis with ascites who presented to the emergency room with left hip pain after a fall at home. Patient states that he gets up a couple of times a night because of diuretics to urinate, around 3:00 a.m. this morning he was walking and began to feel a burning sensation on his shins bilaterally, then he became lightheaded and felt like he needed to sit down but suddenly he was on the ground. He fell onto his left side, he denies hitting his head, he denies loss of consciousness. He is not on any blood thinners. He actually moved himself into bed and his pain continued on his left hip. He also hit his elbow on the left side. He denies any recent difficulty with shortness of breath or dyspnea on exertion. He states that his abdomen is actually much less distended. He was recently initiated on diuretic therapy for his abdominal ascites and follows with Gastroenterology as an outpatient. In the emergency room, the patient's blood pressures were slightly below normal, not uncommon for the patient given his cirrhosis. The remainder of his vital signs were unremarkable. Imaging showed a left femur fracture Patient History Medical History Abnormal chest x-ray Ascites due to alcoholic cirrhosis Chicken pox Chronic back pain (~1981) Colon polyps Gout (~2007) Hearing loss (~1983) Hemorrhoid (~1984) History of varicose veins (~1987) Knee pain (~1965) 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) Measles Migraines (~1971) Mumps Shoulder pain (~1965) Skin cancer (~1983) Surgical History Anesthesia History of back surgery (~2005) History of right knee surgery (~1990) Family & Social History Family History Father No problems noted. Mother Cancer Sister Cancer History of heart disease Hypertension Safety & Behavioral: Feels Safe in Current Yes Environment Been Physically Hurt or No Threatened By a Person Tobacco & Substance use: Smoking Status Current every day smoker alcohol intake frequency 3 or more drinks per day Substance Use Type does not use Meds Home Medications and Allergies Home Medications Medication Instructions Recorded Confirmed Type spironolactone 50 mg tablet 50 mg PO DAILY #30 tab 01/18/21 01/02/22 Rx furosemide 40 mg tablet 40 mg PO DAILY 01/02/22 01/02/22 History nadolol 40 mg tablet 40 mg PO DAILY 01/02/22 01/02/22 History Allergies Allergy/AdvReac Type Severity Reaction Status Date / Time No Known Drug Allergies Allergy Verified 12/26/20 12:49 Review of Systems Review of Systems Narrative: All other systems reviewed with the patient and are negative unless otherwise stated. Exam Vital Signs (past 8 hours): - 01/02/22 07:00 01/02/22 07:39 01/02/22 07:40 Temperature 97.7 F Pulse Rate 61 59 L 58 L Respiratory Rate 18 17 15 Blood Pressure 109/62 97/55 L Pulse Oximetry 100 99 01/02/22 07:44 01/02/22 08:02 01/02/22 08:05 Temperature Pulse Rate 60 62 62 Respiratory Rate 16 23 15 Blood Pressure 97/51 L 101/57 L Pulse Oximetry 100 94 01/02/22 08:20 01/02/22 08:30 01/02/22 08:40 Temperature Pulse Rate 61 61 61 Respiratory Rate 13 14 13 Blood Pressure 93/55 L 87/54 L Pulse Oximetry 97 97 98 01/02/22 08:42 01/02/22 08:50 01/02/22 09:00 Temperature Pulse Rate 62 61 61 Respiratory Rate 16 13 12 Blood Pressure 90/53 L 99/56 L 97/55 L Pulse Oximetry 97 98 99 01/02/22 09:10 01/02/22 09:20 01/02/22 09:30 Temperature Pulse Rate 61 63 61 Respiratory Rate 12 23 15 Blood Pressure 93/52 L 91/55 L 86/53 L Pulse Oximetry 100 97 100 01/02/22 09:31 01/02/22 09:33 01/02/22 09:34 Temperature Pulse Rate 62 61 61 Respiratory Rate 24 16 24 Blood Pressure 85/54 L 93/55 L 92/54 L Pulse Oximetry 99 96 97 01/02/22 09:40 01/02/22 09:50 01/02/22 10:00 Temperature Pulse Rate 62 62 61 Respiratory Rate 16 16 17 Blood Pressure 89/51 L 97/54 L 89/50 L Pulse Oximetry 97 98 100 01/02/22 10:03 01/02/22 10:10 01/02/22 10:20 Temperature Pulse Rate 64 60 61 Respiratory Rate 20 15 15 Blood Pressure 81/51 L 95/54 L 88/55 L Pulse Oximetry 99 98 98 01/02/22 10:30 01/02/22 10:33 01/02/22 10:40 Temperature Pulse Rate 62 61 60 Respiratory Rate 22 18 15 Blood Pressure 89/57 L 88/54 L 90/52 L Pulse Oximetry 95 98 97 01/02/22 10:50 01/02/22 11:00 Temperature Pulse Rate 62 60 Respiratory Rate 16 14 Blood Pressure 93/55 L 90/54 L Pulse Oximetry 95 97 Oxygen Delivery Method Room Air Narrative Exam Narrative: General:? Patient is well developed and well nourished,mildly uncomfortable in ER stretch stuggling to get comfortable, grimaces when he shifts. HEENT:? Normocephalic, atraumatic, extraocular muscles intact, oral pharynx is clear and mucous membranes are moist. Neck: supple and symmetric, trachea is midline, no cervical adenopathy. Negative for JVD Chest:? Normal AP diameter and contour without kyphoscoliosis, no tachypnea, equal chest rise bilaterally. Lungs:? CTA b/l no wheezing rhonchi or rales. Cardio:?RRR no m/r/g. Abdomen: soft, mildly distended with ascites and fluid wave. No tenderness. Musculoskeletal:? Muscle strength and tone are equal within normal limits. left hip is flexed on the ER stretcher currently. Extremities: purplish appearance to skin in bilateral lower extremities which appears chronic, no edema. DP pulses are palpable bilaterally. Skin: No erythema or warmth, lower extremity changes noted above Neuro:? Alert and orientated x3,? sensation to touch intact in all extremities, no gross deficits noted of cranial nerves. Psych:? Patient has a well-kept appearance, appropriate affect, mental status attitude thought context and judgment are appropriate for age. Objective ECG Impression: Regular rhythm, likely sinus Right bundle branch block significant artifact makes interpretation difficult Labs Result Diagrams: 01/02/22 07:10 01/02/22 07:10 Labs: Laboratory Results - last 24 hr 01/02/22 01/02/22 01/02/22 07:10 07:10 07:10 WBC 8.1 RBC 5.22 Hgb 15.8 Hct 45.2 MCV 86.5 MCH 30.2 MCHC 34.9 RDW 15.4 H Plt Count 228 Neut % (Auto) 82.9 H Lymph % (Auto) 7.5 L [place] % (Auto) 7.7 Eos % (Auto) 1.1 L Baso % (Auto) 0.8 Neut # (Auto) 6700 Lymph # (Auto) 600 L [place] # (Auto) 600 Eos # (Auto) 100 Baso # (Auto) 100 PT 13.0 H INR 1.2 APTT 32 Sodium 132 L Potassium 4.7 Chloride 93 L Carbon Dioxide 25 BUN 49 H Creatinine 1.03 Estimated GFR > 60 BUN/Creatinine Ratio 47.6 H Glucose 105 Calcium 10.0 Total Bilirubin 2.1 H AST 52 ALT 97 H Alkaline Phosphatase 324 H Total Creatine Kinase 37 L CK-MB (CK-2) TNP CK-MB (CK-2) Rel Index TNP Troponin I < 0.012 Total Protein 9.6 H Albumin 5.4 H Globulin 4.2 H Albumin/Globulin Ratio 1.3 Lipase 288 SARS-CoV-2 (PCR) 01/02/22 09:04 WBC RBC Hgb Hct MCV MCH MCHC RDW Plt Count Neut % (Auto) Lymph % (Auto) [place] % (Auto) Eos % (Auto) Baso % (Auto) Neut # (Auto) Lymph # (Auto) [place] # (Auto) Eos # (Auto) Baso # (Auto) PT INR APTT Sodium Potassium Chloride Carbon Dioxide BUN Creatinine Estimated GFR BUN/Creatinine Ratio Glucose Calcium Total Bilirubin AST ALT Alkaline Phosphatase Total Creatine Kinase CK-MB (CK-2) CK-MB (CK-2) Rel Index Troponin I Total Protein Albumin Globulin Albumin/Globulin Ratio Lipase SARS-CoV-2 (PCR) Negative Assessment & Plan Assessment & Plan narrative: This is a 76-year-old male with a past medical history of alcoholic cirrhosis with ascites who presented to the emergency room with left hip pain after a fall at home. He is admitted with a left femur fracture with plans to take the patient to the operating room with Orthopedic surgery. 1. Left transcervical femur fracture, acute, pathologic in setting of ground level fall. -orthopedic surgery contacted in the emergency room, plan is for operative intervention. -patient has a Child class B cirrhosis and appears medically optimized prior to urgent surgery -EKG shows sinus rhythm, RBBB which is chronic -dilaudid for pain control is preferrable in setting of cirrhosis. -PT / OT after OR -DVT ppx per ortho after surgery, it is safe in setting of his cirrhosis. Given he is on nadolol would recommend Lovenox over aspirin. 2. Alcoholic cirrhosis with ascites - hold home nadolol and diuretics, but recommend restarting after surgery. - Sherry Class B based on admission labs. - His creatinine of 1 is up from his baseline but not significantly changed since November labs. Suspect this elevated creatinine is due to need for diuresis of his ascites. - vascularly he is probably slightly dehydrated, will continue light IV fluids given low-normal blood pressure until surgery. - after surgery no IV fluids unless hypotensive or symptomatic. Consider reduced dose of diuretic after surgery. - denies any alcohol intake in multiple years. 3. Hyponatremia, mild - likely secondary to diuretic use. Continue NS at 50 cc prior to surgery. Consider reducing diuretic dose after surgery depending on volume status at that time. Code: Full, surrogate decision maker is the patient's spouse DVT: hold prior to surgery, INR is 1.2 so DVT prophylaxis can safely be given per orthopedic recommendations Dispo: Admit as inpatient, likely discharge home or possibly SNF depending on PT/OT. I have utilized all available immediate resources to obtain, update, or review the patient's current medications. Time Spent With Patient Critical Care time: I spent a total of [] minutes of critical care time on this patient's care today; this time is exclusive of procedural time. Quality MIPS - Admit I confirm the patient?s Advance Care Plan is present, Code status is documented, Surrogate decision maker is in patient?s record [If Yes, STOP here]: Yes
--- NOTE | 2022-01-02 13:18 | PC.NURSE ---
Day shift: Pt on AC unit from ED at approx 1310. He is A&Ox4. VS WNL. He is having left hip pain but can find comfortable positions. NPO at this time. Dr Velasquez aware Pt is here. SCD's tolerated and on tele per orders. Oriented to room and call light. High fall risk protocol in place. Agrees to not get OOB w/o help from staff. Call light in reach.
[2022-01-02] MEDS: SODIUM CHLORIDE 0.9% 1,000 ML 50 ML IV (13:35)
--- NOTE | 2022-01-02 13:36 | PM.CN ---
History of Present Illness Consult details Date Patient Seen: 01/02/22 Time Patient Seen: 17:45 Chief complaint: near syncope, GLF, L hip pain Reason for consult: Left hip fracture Requesting provider: Linnea Dyson Narrative: Patient is a 76-year-old male with a history of cirrhosis that got up in the night about 3:00 a.m. and somehow fell. History is obtained both from the patient but also from his separately over the phone. Will have episodes of pain that he tries to walk off in the night. His thinks this is why he was up. He is not sure if he had syncopal episode or tripped just remembers being on the ground and having hip pain. Was eventually able to get up and get into bed but this was painful. He was hoping the pain would go away with several hours he was still and pain and they finally called EMS about 530 in the morning. He lives at home with his Jordyn. He helps care for her. She uses a walker but is also his power of litigation attorney when necessary. Does not take any blood thinners. He endorses occasional hip pain but actually quite rarely. Meds Home Medications and Allergies Home Medications Medication Instructions Recorded Confirmed Type spironolactone 50 mg tablet 50 mg PO DAILY #30 tab 01/18/21 01/02/22 Rx furosemide 40 mg tablet 40 mg PO DAILY 01/02/22 01/02/22 History nadolol 40 mg tablet 40 mg PO DAILY 01/02/22 01/02/22 History Allergies Allergy/AdvReac Type Severity Reaction Status Date / Time No Known Drug Allergies Allergy Verified 12/26/20 12:49 Review of Systems Review of Systems Narrative: No shortness of breath no chest pain no nausea no vomiting. Complaints of left hip pain. Complains of additional episodic pains during the night. Exam Vital Signs (past 8 hours): - 01/02/22 07:00 01/02/22 07:39 01/02/22 07:40 Temperature 97.7 F Pulse Rate 61 59 L 58 L Respiratory Rate 18 17 15 Blood Pressure 109/62 97/55 L Pulse Oximetry 100 99 01/02/22 07:44 01/02/22 08:02 01/02/22 08:05 Temperature Pulse Rate 60 62 62 Respiratory Rate 16 23 15 Blood Pressure 97/51 L 101/57 L Pulse Oximetry 100 94 01/02/22 08:20 01/02/22 08:30 01/02/22 08:40 Temperature Pulse Rate 61 61 61 Respiratory Rate 13 14 13 Blood Pressure 93/55 L 87/54 L Pulse Oximetry 97 97 98 01/02/22 08:42 01/02/22 08:50 01/02/22 09:00 Temperature Pulse Rate 62 61 61 Respiratory Rate 16 13 12 Blood Pressure 90/53 L 99/56 L 97/55 L Pulse Oximetry 97 98 99 01/02/22 09:10 01/02/22 09:20 01/02/22 09:30 Temperature Pulse Rate 61 63 61 Respiratory Rate 12 23 15 Blood Pressure 93/52 L 91/55 L 86/53 L Pulse Oximetry 100 97 100 01/02/22 09:31 01/02/22 09:33 01/02/22 09:34 Temperature Pulse Rate 62 61 61 Respiratory Rate 24 16 24 Blood Pressure 85/54 L 93/55 L 92/54 L Pulse Oximetry 99 96 97 01/02/22 09:40 01/02/22 09:50 01/02/22 10:00 Temperature Pulse Rate 62 62 61 Respiratory Rate 16 16 17 Blood Pressure 89/51 L 97/54 L 89/50 L Pulse Oximetry 97 98 100 01/02/22 10:03 01/02/22 10:10 01/02/22 10:20 Temperature Pulse Rate 64 60 61 Respiratory Rate 20 15 15 Blood Pressure 81/51 L 95/54 L 88/55 L Pulse Oximetry 99 98 98 01/02/22 10:30 01/02/22 10:33 01/02/22 10:40 Temperature Pulse Rate 62 61 60 Respiratory Rate 22 18 15 Blood Pressure 89/57 L 88/54 L 90/52 L Pulse Oximetry 95 98 97 01/02/22 10:50 01/02/22 11:00 01/02/22 11:10 Temperature Pulse Rate 62 60 61 Respiratory Rate 16 14 15 Blood Pressure 93/55 L 90/54 L 83/50 L Pulse Oximetry 95 97 97 01/02/22 11:21 01/02/22 11:30 01/02/22 11:40 Temperature Pulse Rate 63 61 62 Respiratory Rate 18 22 24 Blood Pressure 102/61 97/60 93/56 L Pulse Oximetry 97 100 97 01/02/22 13:26 Temperature Pulse Rate Respiratory Rate Blood Pressure Pulse Oximetry 96 Oxygen Delivery Method Room Air Narrative Exam Narrative: Alert and oriented male in no acute distress lying in bed. Hip flexed over a pillow on the left side. Endorses pain but no grimace. Thin frail-appearing Cooperative alert oriented no acute distress HEENT exam normocephalic atraumatic Respiratory exam unlabored on room air. Lungs clear to auscultation bilaterally CV exam regular rate and rhythm Abdomen is soft Right lower extremity full range of motion. Negative labral. No pain or deformity. Palpable dorsalis pedis pulse Left lower extremity flexed over a pillow. Motor exam other than willing toes and ankle dorsiflexion deferred secondary to pain. Compartments of the lower leg and thigh are soft. Endorses pain around the hip and groin. Sensation grossly intact Const General: cooperative Objective Imaging AP pelvis and left hip x-ray: My impression: Nondisplaced minimally displaced left femoral neck fracture. Bilateral hip osteoarthritis. Calcified vessels. Radiologist's impression: IMPRESSION: Minimally displaced transcervical left femur fracture. Dictated by: Jemma Heaton MD, PhD on 01/02/2022 at 8:17 Approved by: Labs Result Diagrams: 01/02/22 07:10 01/02/22 07:10 Labs: Laboratory Results - last 24 hr 01/02/22 01/02/22 01/02/22 07:10 07:10 07:10 WBC 8.1 RBC 5.22 Hgb 15.8 Hct 45.2 MCV 86.5 MCH 30.2 MCHC 34.9 RDW 15.4 H Plt Count 228 Neut % (Auto) 82.9 H Lymph % (Auto) 7.5 L [place] % (Auto) 7.7 Eos % (Auto) 1.1 L Baso % (Auto) 0.8 Neut # (Auto) 6700 Lymph # (Auto) 600 L [place] # (Auto) 600 Eos # (Auto) 100 Baso # (Auto) 100 PT 13.0 H INR 1.2 APTT 32 Sodium 132 L Potassium 4.7 Chloride 93 L Carbon Dioxide 25 BUN 49 H Creatinine 1.03 Estimated GFR > 60 BUN/Creatinine Ratio 47.6 H Glucose 105 Calcium 10.0 Total Bilirubin 2.1 H AST 52 ALT 97 H Alkaline Phosphatase 324 H Total Creatine Kinase 37 L CK-MB (CK-2) TNP CK-MB (CK-2) Rel Index TNP Troponin I < 0.012 Total Protein 9.6 H Albumin 5.4 H Globulin 4.2 H Albumin/Globulin Ratio 1.3 Lipase 288 SARS-CoV-2 (PCR) 01/02/22 09:04 WBC RBC Hgb Hct MCV MCH MCHC RDW Plt Count Neut % (Auto) Lymph % (Auto) [place] % (Auto) Eos % (Auto) Baso % (Auto) Neut # (Auto) Lymph # (Auto) [place] # (Auto) Eos # (Auto) Baso # (Auto) PT INR APTT Sodium Potassium Chloride Carbon Dioxide BUN Creatinine Estimated GFR BUN/Creatinine Ratio Glucose Calcium Total Bilirubin AST ALT Alkaline Phosphatase Total Creatine Kinase CK-MB (CK-2) CK-MB (CK-2) Rel Index Troponin I Total Protein Albumin Globulin Albumin/Globulin Ratio Lipase SARS-CoV-2 (PCR) Negative [facility] Medical History Abnormal chest x-ray Ascites due to alcoholic cirrhosis Chicken pox Chronic back pain (~1981) Colon polyps Gout (~2007) Hearing loss (~1983) Hemorrhoid (~1984) History of varicose veins (~1987) Knee pain (~1965) 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 Mother Cancer Sister Cancer History of heart disease Hypertension Social History marital status: household members: spouse Tobacco & Substance Use Smoking Status: Current every day smoker alcohol intake: current Additional Social History additional social history: Lives at home with his . His uses a walker and not be able to assist him. Assessment & Plan Assessment and plan (1) Fractured femoral neck: Status: Acute Plan non/min displaced L fem neck fx in pt with cirrihosis. Pt was actually able to get up and back to bed. pre-existing OA-but not with sign pre injury complaints. Discussed options. Recommed CRPP L femoral neck over YESI for less morbid and less blood loss. CRPP will allow immediate WBAT with walker. There are risks of nonunion, HW failure, symptomatic OA, infection, and cardiopulmo complications of surgery/anesthesia plan Dilaudid for pain control and lovenox for DVT prophy. Discuss surgery and injury with the patient and separately with his Jocelin that over the phone. They agree with the plan. The risks and benefits of the procedure have been discussed with the patient and they were given opportunity to ask questions. The risks of surgery include but are not limited to infection, malunion, nonunion, persistence of pain, damage to nerves and blood vessels, posttraumatic arthritis, DVT, PE, cardiopulmonary complications and . The patient expressed a thorough understanding of the risks and benefits of surgery and has elected to proceed. Consent was signed. COVID-19 COVID-19 status: Negative Result date/Date tested (Pos, Neg/Pending): 01/02/22 Time Spent With Patient Time with patient: less than 30 minutes Critical Care time: I spent a total of [] minutes of critical care time on this patient's care today; this time is exclusive of procedural time.
--- NOTE | 2022-01-02 15:57 | PC.NURSE ---
Day shift: Pt off unit for hip procedure at approx 1600. Off tele and SL at this time. Pt has his hearing aids with him.
--- NOTE | 2022-01-02 17:20 | PC.NURSE ---
Day shift: Pt remains off AC unit at this time.
[2022-01-02] MEDS: CEFAZOLIN 2 GM/20 ML SYRINGE IV (18:02)
--- NOTE | 2022-01-02 18:23 | SUR.OPER ---
Supine on padded [place] table with bilateral legs secured in padded positioning boots, feet wrapped bilaterally in cast padding and coban and suspended in positioning spars, operative leg in traction per surgeon. Head on one pillow. Arm on non-operative side secured on padded armboard <90 degrees abduction. Arm on operative side padded and resting across chest then secured with tape over sheet. Padded perineal post in place per surgeon. Patient reading glasses placed in black glass case with patient label and placed in PACU. patients bilateral hearing aids removed while in the OR and placed in green denture cup with patient label.
[2022-01-02] MEDS: BUPIVACAINE 0.25% (PF) 30 ML, EPINEPHrine 0.15 MG INJ (18:35)
--- NOTE | 2022-01-02 19:30 | P.OP_ITS ---
Operative Date/Time/Diagnoses Date of procedure: 01/02/22 Time of procedure: 18:30 Pre-op diagnosis: Left femoral neck fracture nondisplaced Liver cirrhosis Hip arthritis Post-op diagnosis: same Procedure & Clinicians Procedure: Left Femoral neck fixation with cannulated screws CPT code 70079 Same procedure as scheduled: Yes Indications: Patient is a 76-year-old male with a history of liver cirrhosis that fell from a standing height earlier this morning. He was initially able to get up and moved to bed afterwards. He had continued pain so was brought to the hospital by EMS found to have a nondisplaced femoral neck fracture. Did have pre-existing but minimally symptomatic arthritis. Decision for fixation with cannulated screws t o facilitate early mobilization minimize blood loss and allow for immediate weight-bearing as tolerated with assistive devices. The risks and benefits of the procedure have been discussed with the patient given the opportunity to ask questions. The risks of surgery include but are not limited to infection, malunion, nonunion, persistence of pain, damage to nerves and blood vessels, posttraumatic arthritis, DVT, PE, cardiopulmonary complications and . The patient expressed a thorough understanding of the risks and benefits of surgery and has elected to proceed. Consent was signed. Surgeon: Almaz Arevalo Click Yes if Unassisted: Yes Anesthesia Type: General and Local Operative Notes Findings: Nondisplaced femoral neck fracture. Hip arthritis Closure Type: primary Specimen(s): none sent Prosthetic devices, grafts, tissues, transplants, or devices: Synthes cannulated screws 7.3 with 3 washers. 100 mm, 95 mm, 85 mm Estimated Blood Loss (mL): 5 Blood products transfused: none Tourniquet time (min): 0 Procedure in detail: Patient was seen in the preoperative area and the site of surgery was marked and informed consent was confirmed. Final questions were answered. This was the left hip. The patient was brought to the operating room and placed on the operative table. General anesthesia was administered. The patient was positioned on the fracture table in the standard fashion with well-padded boots and perineal post. An SCD was worn on the contralateral leg. Formal time-out procedure we took place confirming the patient's side and site of surgery and administration of appropriate preoperative antibiotics. This was 2 g of Ancef. All personnel were in agreement. Implants were in the room. The fluoroscopy unit was brought in and we made sure that we could get appropriate AP and lateral images of the hip. Following this the extremity was prepped and draped in the standard sterile fashion. There is a nondisplaced left femoral neck fracture. on the AP and lateral marked out on the skin. Small stab incision was made in the lateral thigh and a pin was placed percutaneously determining the starting port for the inferior cannulated screw. This was directed posterior along the neck and into the femoral head. The threaded guidewire was advanced across the fracture into the femoral head. The parallel guide was then used to advance 2 more guidewires in an inverted triangle fashion along the anterior and posterior femoral neck into the head. Fluoroscopic images were checked in AP and lateral planes to ensure adequate guidewire direction and penetration. The inferior guidewire was measured for a 100 screw and then overdrilled. A 100 mm 7.3 cannulated screw with washer was then advanced over the guidewire and across the fracture site into the femoral head a washer was used. This was a long thread screw. This was advanced to a appropriate distance from the articular surface. Next the posterior superior guidewire was overdrilled and measured for a 95mm screw. This was placed with a washer. Additionally an 85 mm was screw was placed for the anterior superior screw. Again with a washer. AP and lateral imaging confirmed appropriate placement of the implants and no violation of the articular surface. The fracture maintained alignment. At this point the leg was taken through internal and external rotation obtaining visualization of the joint throughout the arc of motion under live fluoroscopy. All hardware was noted to be clear of the articular surface and there is no crepitus throughout the range of motion. I was satisfied with the alignment final images were obtained. The wound was irrigated and closed in layers with 2 O Vicryl suture deep and subcutaneous sutures and nylon in the skin. Sterile dressing with Xeroform gauze and Tegaderm was placed. Surgical counts were correct. The drapes removed. The patient's lower extremity alignment was again checked on the table for leg length noted to be equal in the patella were facing upward appropriately with stable ligamentous exam in the limbs moving as a unit. No immediate complications were noted. The patient tolerated the procedure well and was taken to recovery room. Complications: none Post-operative Condition: stable Disposition: PACU Plan for aftercare: Weightbear as tolerated with a walker. Mandatory use of walker minimum 6 weeks post operatively. No other hip precautions. Start Lovenox for DVT prophylaxis postop day 1 for 28 days. Follow-up in 10-14 days for suture removal
[2022-01-02] MEDS: LACTATED RINGERS 1,000 ML 125 ML IV (22:15)
[2022-01-03] VITALS (11 sets, daily range): BP systolic 91–123; BP diastolic 51–66; PULSE 60–71; RESP 14–18; TEMP 36.2–36.8; O2SAT 93–98
[2022-01-03] MEDS: CEFAZOLIN 2 GM/20 ML SYRINGE IV (03:32)
[2022-01-03 06:14] LABS: Add Manual Diff / Slide Review NO; Basophils Absolute Auto 0 /uL (0-100); Basophils Percent Auto 0.2 % (0-2); Eosinophils Absolute Auto 0 /uL (0-450); Eosinophils Percent Auto 0.1 % (2-4); Hematocrit 38.2 % (41-53); Hemoglobin 13.2 g/dL (13.5-17.5); Lymphocytes Absolute Auto 400 /uL (1100-4500); Mean Corpuscular HGB Conc 34.6 % (30-36); Mean Corpuscular Hemoglobin 30.1 PG (26-34); Mean Corpuscular Volume 86.8 fL (80-100); Monocytes Absolute Auto 300 /uL (0-900); Monocytes Percent Auto 5.8 % (3-14); Neutrophils Absolute Auto 4500 /uL (1500-7000); Neutrophils Percent Auto 86.9 % (50-75); Platelet Count 143 X10^3/uL (150-400); Red Cell Distribution Width 15.7 % (11.6-14.8); White Blood Cell Count 5.2 X10^3/uL (4.5-11.0)
[2022-01-03 06:39] LABS: Alanine Aminotransferase 56 IU/L (<50); Albumin 3.4 g/dL (3.5-5.0); Albumin Globulin Ratio 1.2 (1.0-2.8); Alkaline Phosphatase 193 U/L (38-126); Aspartate Aminotransferase 32 IU/L (17-59); BUN Creatinine Ratio 41.4 (6-22); Bilirubin Total 1.2 mg/dL (0.2-1.3); Blood Urea Nitrogen 29 mg/dL (9-20); Calcium 8.6 mg/dL (8.4-10.2); Carbon Dioxide 23 mmol/L (22-32); Chloride 102 mmol/L (98-107); Estimated Glomerular Filt Rate > 60 mL/min (>60); Globulin 2.8 g/dL (1.7-4.1); Glucose 161 mg/dL (80-110); HEMOLYSIS < 15 (0-50); Potassium 4.6 mmol/L (3.4-5.1); Sodium 132 mmol/L (137-145); Total Protein 6.2 g/dL (6.3-8.2)
[2022-01-03] MEDS: ENOXAPARIN 40 MG/0.4 ML SYRINGE SUBCUT (08:27)
[2022-01-03] MEDS: DOCUSATE 100 MG CAPSULE PO ×2 (08:27→20:10)
--- NOTE | 2022-01-03 08:55 | PM.PNPO.1 ---
Subjective Subjective Date Patient Seen: 01/03/22 Time Patient Seen: 10:47 Interval history: Sitting up in bed, slightly [place] as he only has one hearing aid. Feeling well, denies pain, has not yet worked with PT. 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 His house is equipped with bars along the perez for assistance in walking. Exam Vital Signs (past 8 hours): - 01/03/22 01:00 01/03/22 04:15 01/03/22 05:00 Temperature 98.1 F Pulse Rate 62 Respiratory Rate 16 Blood Pressure 91/51 L Pulse Oximetry 98 98 96 01/03/22 08:00 Temperature 98.2 F Pulse Rate 60 Respiratory Rate 15 Blood Pressure 94/63 Pulse Oximetry 96 Oxygen Delivery Method Room Air Oxygen Flow Rate 0 Narrative Exam Narrative: 5/5 strength in hip flexors, quadriceps, hamstrings, DF, PF, EHL bilaterally. Sensation to light touch intact in BLE. Calves soft, compressible, nontender and without palpable cords or masses. Objective Labs Result Diagrams: 01/03/22 05:33 01/03/22 05:33 Labs: Laboratory Results - last 24 hr 01/02/22 01/03/22 01/03/22 09:04 05:33 05:33 WBC 5.2 RBC 4.40 L Hgb 13.2 L Hct 38.2 L MCV 86.8 MCH 30.1 MCHC 34.6 RDW 15.7 H Plt Count 143 L Neut % (Auto) 86.9 H Lymph % (Auto) 7.0 L [place] % (Auto) 5.8 Eos % (Auto) 0.1 L Baso % (Auto) 0.2 Neut # (Auto) 4500 Lymph # (Auto) 400 L [place] # (Auto) 300 Eos # (Auto) 0 Baso # (Auto) 0 Sodium 132 L Potassium 4.6 Chloride 102 Carbon Dioxide 23 BUN 29 H Creatinine 0.70 Estimated GFR > 60 BUN/Creatinine Ratio 41.4 H Glucose 161 H Calcium 8.6 Total Bilirubin 1.2 AST 32 ALT 56 H Alkaline Phosphatase 193 H Total Protein 6.2 L Albumin 3.4 L Globulin 2.8 Albumin/Globulin Ratio 1.2 SARS-CoV-2 (PCR) Negative [facility] Medical History Abnormal chest x-ray Ascites due to alcoholic cirrhosis Chicken pox Chronic back pain (~1981) Colon polyps Gout (~2007) Hearing loss (~1983) Hemorrhoid (~1984) History of varicose veins (~1987) Knee pain (~1965) 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 Mother Cancer Sister Cancer History of heart disease Hypertension Social History marital status: household members: spouse Smoking Status: Former smoker alcohol intake: former additional social history: Lives at home with his . His uses a walker and not be able to assist him. Assessment & Plan Post-op Assessment and plan (1) Status post hip surgery: Assessment and Plan narrative: Weightbearing as tolerated with a walker.? Mandatory use of walker minimum 6 weeks post operatively.? No other hip precautions.? Start Lovenox for DVT prophylaxis 01/03/2022-01/30/2022.? Follow-up with PA at [facility] between January 13 and January 16 for suture removal. Postoperative Procedures: Procedures Operation Date: 01/02/22 17:00 Actual Procedure Side Surgeon p ORIF Hip/Cannulated Screws Left Almaz Arevalo MD Quality VTE Deep Vein Thrombosis/Pulmonary Embolism Present on Admission: No
--- NOTE | 2022-01-03 10:58 | PT.IIE ---
Current Diagnoses Fracture of unspecified part of neck of unspecified femur, initial encounter for closed fracture (01/02/22) Other specified postprocedural states (01/02/22) Surgery Performed Operation Date: 01/02/22 17:00 Actual Procedures p ORIF Hip/Cannulated Screws(Left) - Almaz Arevalo MD Surgical History (Last Reviewed 01/02/22 @ 17:48 by Almaz Arevalo MD) Anesthesia Medical History (Last Reviewed 01/02/22 @ 17:48 by Almaz Arevalo MD) Abnormal chest x-ray Ascites due to alcoholic cirrhosis Chicken pox Chronic back pain (~1981) Colon polyps Gout (~2007) Hearing loss (~1983) Hemorrhoid (~1984) History of varicose veins (~1987) Knee pain (~1965) 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) Measles Migraines (~1971) Mumps Shoulder pain (~1965) Skin cancer (~1983) Physical Therapy Inpatient Evaluation/Re-Eval M1 PT/OT-IP Prior Functional Status Start: 01/03/22 12:52 Freq: NEEDED Status: Active Protocol: Document 01/03/22 10:58 AB (Rec: 01/03/22 13:05 [email or web address]) Medical Review Prior Functional Status Medical History Reviewed Yes Communication able to make needs known; [place]OMIN[place] Mobility and Gait pt stated that he is independent with all mobilities and ambulation without AD Social History Household Members spouse Living Arrangements House Number of Floors (Floors) Two Floors Number of Stairs To Enter/Railing? 5 steps to enter the house B rails has a chair lift on the stairs to get to 2nd level bedroom Home Environment High Toilet,Walk in Shower, Built-In Shower Seat Home Equipment Front Wheel Walker,Four Wheel Walker,Raised Toilet Seat Without Armrests,Hand Held Shower,Grab Bars Near Toilet, Grab Bars In Shower Additional Social History Comment pt stated that he has rails in the hallway and has an up walker stated that spouse will not be able to assist him M2 PT-IP Current Condition Start: 01/03/22 12:52 Freq: NEEDED Status: Active Protocol: Document 01/03/22 10:58 AB (Rec: 01/03/22 13:05 [email or web address]) Physical Therapy Current Condition Current Condition Evaluation Date 01/03/22 Treatment Diagnosis L femur fx s/p cannulated screws; difficulty in walking Onset Date 01/02/22 M3 PT-IP Subjective Start: 01/03/22 12:52 Freq: NEEDED Status: Active Protocol: Document 01/03/22 10:58 AB (Rec: 01/03/22 13:05 AB [email or web address]) Subjective Physical Therapy Visit Type Type Initial Evaluation Visit Start Time 10:58 Visit Stop Time 11:45 Total Visit Minutes 47 Number of SYSTEMS INTEGRATION ENGINEER Visits 0 Physical Therapy Visit Comments Patient Comments agreeable to do PT Therapy Pain Assessment Pain Present Pain Present Denied Pain M4 PT-IP Mobility and Gait Start: 01/03/22 12:52 Freq: NEEDED Status: Active Protocol: Document 01/03/22 10:58 AB (Rec: 01/03/22 13:05 AB [email or web address]) PT-Bed Mobility Assessment Supine to Sit Supine to Sit Contact Guard Assistance PT-Transfer Assessment Sit to and From Stand Sit to and from Stand Minimal Assistance,Moderate Assistance,1 Person Assistance ,Use of Upper Extremities Equipment Transfer Assistive Device Gait Belt,Front Wheeled Walker Orthotic/Prosthetic Devices or Brace: No Transfers Transfer Destination Chair Transfer Technique Stand Step Pivot Transfer Ability Level of Assist Moderate Assistance,1 Person Assistance,Use of Upper Extremities Comments Mobility Comments pt completed supine to sit CGA and cues. presents with difficulty completing task and requires increase time to complete. pt able to sit on EOB SBA. completed sit to stand mod A and cues with LOB posteriorly on standing needing to sit back on the EOB . noted increase L knee flexion and slight buckling during standing with LOB. pt educated on sit to stand and quads activation during standing. completed sit to stand again min to mod A and cues and completed step transfer to chair using FWW min to mod A and cues. pt rested. agreed to ambulate and completed sit to stand from chair min A and max cues and ambulated in room using FWW ~ 25 ft min to mod A and cues with (+) slight L knee buckling x 2 requiring assist and max cues for stabilization and safety. pt agreed to sit on the chair. positioned on the chair. call light and table placed within reach. Gait Assessment Gait Gait Assistance Required: Minimum Assistance,Moderate Assistance,1 Person Assist Distance (Feet) 25 Able to Maintain Weight Bearing Status Yes During Gait Assistive Devices Assistive Device Gait Belt,Front Wheeled Walker Orthotic/Prosthetic Devices or Brace: No Gait Deviations General Gait Pattern Antalgic,Decreased Stride Length,Decreased Feet Clearance Factors Limiting Gait Function Factors Limiting Gait Function Decreased Activity Tolerance, Decreased Strength,Poor Balance,Poor Safety Awareness PT-Balance Assessment Sitting Balance and Reactions Static Sitting Balance Ability Good Dynamic Sitting Balance Ability Good Standing Balance and Reactions Static Standing Balance Ability Poor Dynamic Standing Balance Ability Poor Device Used FWW M5 PT-IP Objective Assessments Start: 01/03/22 12:52 Freq: NEEDED Status: Active Protocol: Document 01/03/22 10:58 AB (Rec: 01/03/22 13:05 AB [email or web address]) Orientation Orientation/Cognition Level of Alertness Alert Orientation Name,Place,Situation Language Function Ability Hard of Hearing Safety Awareness Decreased Safety Awareness Strength Lower Extremity Strength Assessment Left Impaired Knee 3+/5 Sensation Assessment Sensation Gross Sensation WNL Muscle Tone Muscle Tone WNL Yes M6 PT-IP Treatment Start: 01/03/22 12:52 Freq: NEEDED Status: Active Protocol: Document 01/03/22 10:58 AB (Rec: 01/03/22 13:05 [email or web address]) Physical Therapy Treatment Education Education Provided Precautions,Weight Bearing Status,Post-Op Packet,Safety M7 PT-IP Assessment and Plan Start: 01/03/22 12:52 Freq: NEEDED Status: Active Protocol: Document 01/03/22 10:58 AB (Rec: 01/03/22 13:05 [email or web address]) PT Summary Assessment and Plan Potential Rehabilitation Potential Fair Status of Condition at Evaluation Evolving Summary Impairments Pain,ROM,Strength,Balance, Coordination,Sensation,Tone, Cognition,Bed Mobility, Transfers,Gait,Activity Tolerance Assessment Summary pt requiring min to mod A with mobility using fWW with (+) L knee slight buckling requiring assist to stabilize and cues for safety. pt will not have any assistance at home due to spouse unable to assist pt. pt needs to be more independent than current level to safely go home and will require SNF rehab. Goals Bed Mobility Goal Standby Assistance Transfer Goal Standby Assistance,Front Wheeled Walker Gait Goal Standby Assistance,Front Wheel Walker Gait Distance 200 Other Goals up/down 5 steps B rails SBA Days to Meet Goals 10 Frequency of Treatment Frequency Of Treatment Twice a Day Treatment Plan Physical Therapy Treatment Plan Bed Mobility Training,Transfer Training,Gait Training, Therapeutic Exercise,Balance Retraining,Post Op Education, Discharge Planning,Hot or Cold Pack,Neuromuscular Re-ed, Coordination Retraining,Manual Therapy Weight Bearing Status Weight Bearing Status Weight Bear as Tolerated Allowed Weight Bearing Amount (enter % LLE WBAT with FWW per ortho MD or #) (%) order: mandatory use of walker min 6 weeks post-op Recommendations To Nursing Amount of Assist Needed 1 Person Assist Discharge Recommendations PT Discharge Recommendations SNF Rehab Transportation Needs at Discharge Wheelchair/Cabulance
[2022-01-03] MEDS: HYDROMORPHONE 2 MG TABLET PO (13:14)
--- NOTE | 2022-01-03 13:38 | PT.IPTN ---
Current Diagnoses Fracture of unspecified part of neck of unspecified femur, initial encounter for closed fracture (01/02/22) Other specified postprocedural states (01/02/22) Surgery Performed Operation Date: 01/02/22 17:00 Actual Procedures p ORIF Hip/Cannulated Screws(Left) - Almaz Arevalo MD Physical Therapy Treatment Note M2 PT-IP Current Condition Start: 01/03/22 12:52 Freq: NEEDED Status: Active Protocol: Document 01/03/22 10:58 AB (Rec: 01/03/22 13:05 AB [email or web address]) Physical Therapy Current Condition Current Condition Evaluation Date 01/03/22 Treatment Diagnosis L femur fx s/p cannulated screws; difficulty in walking Onset Date 01/02/22 M3 PT-IP Subjective Start: 01/03/22 12:52 Freq: NEEDED Status: Active Protocol: Document 01/03/22 13:07 KS (Rec: 01/03/22 13:49 KS [id number]) Subjective Physical Therapy Visit Type Type Treatment Note Visit Start Time 13:07 Visit Stop Time 13:38 Total Visit Minutes 31 Number of GALVANIZER Visits 1 Physical Therapy Visit Comments Patient Comments agreeable to do PT Therapy Pain Assessment Location Left Hip Intensity 3 Scale Used Numeric (0 - 10) Description Aching Pain Behaviors Guarding Pain Management Techniques Distraction,Re-positioning M4 PT-IP Mobility and Gait Start: 01/03/22 12:52 Freq: NEEDED Status: Active Protocol: Document 01/03/22 13:07 KS (Rec: 01/03/22 13:49 KS [id number]) PT-Transfer Assessment Sit to and From Stand Sit to and from Stand Minimal Assistance,1 Person Assistance,Use of Upper Extremities Equipment Transfer Assistive Device Gait Belt,Front Wheeled Walker Orthotic/Prosthetic Devices or Brace: No Transfers Transfer Destination Chair Transfer Technique Pt ambulated w/ FWW Transfer Ability Level of Assist Minimal Assistance,1 Person Assistance,Use of Upper Extremities Comments Mobility Comments Pt in chair upon arrival reporting discomfort in L hip. Min A and cues for hand placement for sit<>stand w/ FWW. Pt then ambulated ~60 ft w/ FWW and Min A w/ cues for L quad activation throughout and FWW management. Pt w/ step to pattern and very cautious and slow gait. Pt returned to room and chair requiring Min A and cues for slow descent. He then performed 1x10 bilateral ankle pumps, LAQs, and glute sets. Pt left in chair w/ all needs in reach. Gait Assessment Gait Gait Assistance Required: Minimum Assistance,1 Person Assist Distance (Feet) 60 Able to Maintain Weight Bearing Status Yes During Gait Assistive Devices Assistive Device Gait Belt,Front Wheeled Walker Orthotic/Prosthetic Devices or Brace: No Gait Deviations General Gait Pattern Antalgic,Decreased Stride Length,Decreased Feet Clearance,Step-to Gait Factors Limiting Gait Function Factors Limiting Gait Function Decreased Activity Tolerance, Decreased Strength,Poor Balance,Poor Safety Awareness Comments Gait Comments Please refer to mobility section for details. Stair Climbing Assessment Comments Stair Climbing Comments Not yet assessed, may be barrier to d/c. Pt w/ 5 steps leading into house. PT-Balance Assessment Sitting Balance and Reactions Static Sitting Balance Ability Good Dynamic Sitting Balance Ability Good Standing Balance and Reactions Static Standing Balance Ability Fair Dynamic Standing Balance Ability Fair Device Used FWW M5 PT-IP Objective Assessments Start: 01/03/22 12:52 Freq: NEEDED Status: Active Protocol: Document 01/03/22 10:58 AB (Rec: 01/03/22 13:05 AB [email or web address]) Orientation Orientation/Cognition Level of Alertness Alert Orientation Name,Place,Situation Language Function Ability Hard of Hearing Safety Awareness Decreased Safety Awareness Strength Lower Extremity Strength Assessment Left Impaired Knee 3+/5 Sensation Assessment Sensation Gross Sensation WNL Muscle Tone Muscle Tone WNL Yes M6 PT-IP Treatment Start: 01/03/22 12:52 Freq: NEEDED Status: Active Protocol: Document 01/03/22 13:07 KS (Rec: 01/03/22 13:49 KS [id number]) Physical Therapy Treatment Exercises Exercises Ankle Pumps,Gluteal Sets Education Education Provided Precautions,Weight Bearing Status,Post-Op Packet,Safety Other Treatments Other Treatment Performed LAQs M7 PT-IP Assessment and Plan Start: 01/03/22 12:52 Freq: NEEDED Status: Active Protocol: Document 01/03/22 13:07 KS (Rec: 01/03/22 13:49 KS [id number]) PT Summary Assessment and Plan Potential Rehabilitation Potential Fair Status of Condition at Evaluation Evolving Summary Impairments Pain,ROM,Strength,Balance, Coordination,Sensation,Tone, Cognition,Bed Mobility, Transfers,Gait,Activity Tolerance Assessment Summary Pt Min A throughout treatment and required cues for safety, sequencing, hand placement, and FWW use. Step to pattern during ambulation w/ slow and cautious gait and difficulty extending L knee. Pt has 5 steps to enter home which at this time will be a barrier to d/c as he does not have someone to assist him. May benefit from SNF to improve functional mobility independence. Will continue to assess progress. Goals Bed Mobility Goal Standby Assistance Transfer Goal Standby Assistance,Front Wheeled Walker Gait Goal Standby Assistance,Front Wheel Walker Gait Distance 200 Other Goals up/down 5 steps B rails SBA Days to Meet Goals 10 Frequency of Treatment Frequency Of Treatment Twice a Day Treatment Plan Physical Therapy Treatment Plan Bed Mobility Training,Transfer Training,Gait Training, Therapeutic Exercise,Balance Retraining,Post Op Education, Discharge Planning,Hot or Cold Pack,Neuromuscular Re-ed, Coordination Retraining,Manual Therapy Weight Bearing Status Weight Bearing Status Weight Bear as Tolerated Allowed Weight Bearing Amount (enter % LLE WBAT with FWW per ortho MD or #) (%) order: mandatory use of walker min 6 weeks post-op Recommendations To Nursing Amount of Assist Needed 1 Person Assist Discharge Recommendations PT Discharge Recommendations SNF Rehab Transportation Needs at Discharge Wheelchair/Cabulance
--- NOTE | 2022-01-03 14:01 | CM.DANOTE ---
Initial DCP Assessment Note Pt is a 76 yo male, resident of [place], presents after GLF w/subsequent non/min displaced L fem neck fx now POD#1 from ORIF Hip/Cannulated Screws by Dr Arevalo PCP: Sb Silva Payer: [facility] Reviewed chart, met w/patient this morning, introduced role. Patient had not yet gotten out of bed with PT Patient tearful this morning; Patient explains he lives w/spouse who has hx of stroke, patient assists w/ADLs as needed. 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 Patient tells this [employer] that he is rarely sedentary and stays active and remains independent with all ADLs. 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 Patient has no hx of HH or SNF Review of PT note indicates initial recommendation for SNF, will plan to review DCP once again tomorrow w/patient (and possibly family members if available?) MAGGY Craft Discharge Planning/Care Management CM Discharge Assessment Start: 01/03/22 13:39 Freq: Status: Active Protocol: Document 01/03/22 13:40 JANICE (Rec: 01/03/22 14:01 JANICE [id number]) Discharge Planning Assessment Assigned Environmental Inspector MAGGY Wiley DPOA/Assigned Designee Name Jordyn Barbosa, spouse Contact Information [phone], Advance Directives? Yes: DPOA; Health Care Directive Advance Directives on File Yes History Provided By Patient,Medical Record Prior Living Arrangements House Household Members spouse Type of transporation used prior to Drives own vehicle admit Independent with ADL's Yes Is patient alert and oriented? Yes Barriers to Discharge Yes Comment Patient lives with spouse whom he cares for ( d/t prior stroke) states his dtr lives in [place] and he relies on friends and neighbors for help when needed
--- NOTE | 2022-01-03 18:36 | PC.NURSE ---
Pt is AxOx4, needs 1 person assistance and cooperative. VSS, pt c/o pain during PT so pt requested PO dilaudid 2mg with good effect. Otherwise, pt doing well. No other changes.
--- NOTE | 2022-01-03 19:20 | P.PN_ITS ---
Subjective Subjective Date Patient Seen: 01/03/22 Interval history: Status post left hip ORIF, doing okay, not much pain Exam Vital Signs (past 8 hours): - 01/03/22 12:00 01/03/22 14:23 01/03/22 16:00 Temperature 97.2 F L 97.9 F Pulse Rate 65 71 Respiratory Rate 17 18 Blood Pressure 97/53 L 123/66 Pulse Oximetry 97 98 97 Oxygen Delivery Method Room Air Oxygen Flow Rate 0 Narrative Exam Narrative: General: Alert NAD Lungs: Clear Extremities: Left hip dressing intact, just mild bruising and swelling, distal sensation and strength intact Objective Labs Result Diagrams: 01/03/22 05:33 01/03/22 05:33 Labs: Laboratory Results - last 24 hr 01/03/22 01/03/22 05:33 05:33 WBC 5.2 RBC 4.40 L Hgb 13.2 L Hct 38.2 L MCV 86.8 MCH 30.1 MCHC 34.6 RDW 15.7 H Plt Count 143 L Neut % (Auto) 86.9 H Lymph % (Auto) 7.0 L [place] % (Auto) 5.8 Eos % (Auto) 0.1 L Baso % (Auto) 0.2 Neut # (Auto) 4500 Lymph # (Auto) 400 L [place] # (Auto) 300 Eos # (Auto) 0 Baso # (Auto) 0 Sodium 132 L Potassium 4.6 Chloride 102 Carbon Dioxide 23 BUN 29 H Creatinine 0.70 Estimated GFR > 60 BUN/Creatinine Ratio 41.4 H Glucose 161 H Calcium 8.6 Total Bilirubin 1.2 AST 32 ALT 56 H Alkaline Phosphatase 193 H Total Protein 6.2 L Albumin 3.4 L Globulin 2.8 Albumin/Globulin Ratio 1.2 [facility], [facility] Medical History Abnormal chest x-ray Ascites due to alcoholic cirrhosis Chicken pox Chronic back pain (~1981) Colon polyps Gout (~2007) Hearing loss (~1983) Hemorrhoid (~1984) History of varicose veins (~1987) Knee pain (~1965) 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 Mother Cancer Sister Cancer History of heart disease Hypertension Social History marital status: household members: spouse Smoking Status: Former smoker alcohol intake: former additional social history: Lives at home with his . His uses a walker and not be able to assist him. Assessment & Plan Assessment & Plan narrative: 1. Left hip femur fracture, acute, pathological due to osteoporosis -stable postop -continue therapy -Lovenox for DVT prophylaxis 2.Alcoholic cirrhosis with ascites -stable, resumed at a law low and furosemide and spironolactone per home routine Time Spent With Patient Critical Care time: I spent a total of [] minutes of critical care time on this patient's care today; this time is exclusive of procedural time. Quality VTE Deep Vein Thrombosis/Pulmonary Embolism Present on Admission: No
[2022-01-04] VITALS (11 sets, daily range): BP systolic 90–102; BP diastolic 48–60; PULSE 54–77; RESP 16–18; TEMP 36.2–36.9; O2SAT 94–98
[2022-01-04 05:50] LABS: Add Manual Diff / Slide Review NO; Basophils Absolute Auto 0 /uL (0-100); Basophils Percent Auto 0.3 % (0-2); Eosinophils Absolute Auto 0 /uL (0-450); Eosinophils Percent Auto 0.4 % (2-4); Hematocrit 37.8 % (41-53); Hemoglobin 13.1 g/dL (13.5-17.5); Lymphocytes Absolute Auto 1000 /uL (1100-4500); Lymphocytes Percent Auto 12.8 % (25-40); Mean Corpuscular HGB Conc 34.6 % (30-36); Mean Corpuscular Hemoglobin 30.2 PG (26-34); Mean Corpuscular Volume 87.3 fL (80-100); Monocytes Absolute Auto 700 /uL (0-900); Monocytes Percent Auto 8.9 % (3-14); Neutrophils Absolute Auto 6100 /uL (1500-7000); Neutrophils Percent Auto 77.6 % (50-75); Platelet Count 147 X10^3/uL (150-400); Red Blood Cell Count 4.33 X10^6/uL (4.5-5.9); Red Cell Distribution Width 15.8 % (11.6-14.8); White Blood Cell Count 7.9 X10^3/uL (4.5-11.0)
[2022-01-04 06:03] LABS: Alanine Aminotransferase 54 IU/L (<50); Albumin 3.5 g/dL (3.5-5.0); Albumin Globulin Ratio 1.2 (1.0-2.8); Alkaline Phosphatase 200 U/L (38-126); Aspartate Aminotransferase 32 IU/L (17-59); BUN Creatinine Ratio 32.1 (6-22); Bilirubin Total 1.2 mg/dL (0.2-1.3); Blood Urea Nitrogen 25 mg/dL (9-20); Calcium 8.6 mg/dL (8.4-10.2); Carbon Dioxide 27 mmol/L (22-32); Chloride 100 mmol/L (98-107); Estimated Glomerular Filt Rate > 60 mL/min (>60); Globulin 2.9 g/dL (1.7-4.1); Glucose 92 mg/dL (80-110); HEMOLYSIS < 15 (0-50); Potassium 4.4 mmol/L (3.4-5.1); Sodium 132 mmol/L (137-145); Total Protein 6.4 g/dL (6.3-8.2)
--- NOTE | 2022-01-04 07:53 | P.PN_ITS ---
Subjective Subjective Date Patient Seen: 01/04/22 Time Patient Seen: 09:07 Interval history: Sitting up in bed eating breakfast. Worked w/ PT yesterday, and feels more pain today. PT recommending SNF at this time. Pt wants to make sure his PCP is aware of osteoporosis, and I have assured him that d/c summary will be sent to his PCP. Exam Vital Signs (past 8 hours): - 01/04/22 01:00 01/04/22 04:00 01/04/22 05:00 Temperature 97.6 F Pulse Rate 58 L Respiratory Rate 18 Blood Pressure 102/60 Pulse Oximetry 95 96 96 01/04/22 07:21 Temperature Pulse Rate Respiratory Rate Blood Pressure Pulse Oximetry 97 Oxygen Delivery Method Room Air Oxygen Flow Rate 0 Narrative Exam Narrative: 5/5 strength in hip flexors, quadriceps, hamstrings, DF, PF, EHL bilaterally. Sensation to light touch intact in BLE. Calves soft, compressible, nontender and without palpable cords or masses. Dressing with some old bloody drainage, otherwise intact. Objective Labs Result Diagrams: 01/04/22 05:35 01/04/22 05:35 Labs: Laboratory Results - last 24 hr 01/04/22 01/04/22 05:35 05:35 WBC 7.9 D RBC 4.33 L Hgb 13.1 L Hct 37.8 L MCV 87.3 MCH 30.2 MCHC 34.6 RDW 15.8 H Plt Count 147 L Neut % (Auto) 77.6 H Lymph % (Auto) 12.8 L [place] % (Auto) 8.9 Eos % (Auto) 0.4 L Baso % (Auto) 0.3 Neut # (Auto) 6100 Lymph # (Auto) 1000 L [place] # (Auto) 700 Eos # (Auto) 0 Baso # (Auto) 0 Sodium 132 L Potassium 4.4 Chloride 100 Carbon Dioxide 27 BUN 25 H Creatinine 0.78 Estimated GFR > 60 BUN/Creatinine Ratio 32.1 H Glucose 92 Calcium 8.6 Total Bilirubin 1.2 AST 32 ALT 54 H Alkaline Phosphatase 200 H Total Protein 6.4 Albumin 3.5 Globulin 2.9 Albumin/Globulin Ratio 1.2 PFSH Medical History Abnormal chest x-ray Ascites due to alcoholic cirrhosis Chicken pox Chronic back pain (~1981) Colon polyps Gout (~2007) Hearing loss (~1983) Hemorrhoid (~1984) History of varicose veins (~1987) Knee pain (~1965) 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 Mother Cancer Sister Cancer History of heart disease Hypertension Social History marital status: household members: spouse Smoking Status: Former smoker alcohol intake: former additional social history: Lives at home with his . His uses a walker and not be able to assist him. Assessment & Plan Post-op Assessment and plan (1) Status post hip surgery: Assessment and Plan narrative: Weightbearing as tolerated with a walker.? Mandatory use of walker minimum 6 weeks post operatively.? No other hip precautions.? Continue Lovenox for DVT prophylaxis through 01/30/2022.? Follow-up with PA at [facility] between January 13 and January 16 for suture removal. Postoperative Procedures: Procedures Operation Date: 01/02/22 17:00 Actual Procedure Side Surgeon p ORIF Hip/Cannulated Screws Left Almaz Arevalo MD Quality VTE Deep Vein Thrombosis/Pulmonary Embolism Present on Admission: No
[2022-01-04] MEDS: CALCIUM CARBONATE 600 MG TABLET PO ×2 (08:31→20:28)
[2022-01-04] MEDS: CHOLECALCIFEROL (VITAMIN D3) 1,000 UNIT TABLET 1000 UNIT PO (08:31)
[2022-01-04] MEDS: ENOXAPARIN 40 MG/0.4 ML SYRINGE SUBCUT (08:31)
[2022-01-04] MEDS: DOCUSATE 100 MG CAPSULE PO ×2 (08:31→20:28)
[2022-01-04] MEDS: OXYCODONE IR 5 MG TABLET PO (09:02)
--- NOTE | 2022-01-04 09:49 | PT.IPTN ---
Current Diagnoses Fracture of unspecified part of neck of unspecified femur, initial encounter for closed fracture (01/02/22) Other specified postprocedural states (01/02/22) Surgery Performed Operation Date: 01/02/22 17:00 Actual Procedures p ORIF Hip/Cannulated Screws(Left) - Almaz Arevalo MD Physical Therapy Treatment Note M2 PT-IP Current Condition Start: 01/03/22 12:52 Freq: NEEDED Status: Active Protocol: Document 01/03/22 10:58 AB (Rec: 01/03/22 13:05 AB [id number]) Physical Therapy Current Condition Current Condition Evaluation Date 01/03/22 Treatment Diagnosis L femur fx s/p cannulated screws; difficulty in walking Onset Date 01/02/22 M3 PT-IP Subjective Start: 01/03/22 12:52 Freq: NEEDED Status: Active Protocol: Document 01/04/22 09:25 KS (Rec: 01/04/22 12:53 KS [id number]) Subjective Physical Therapy Visit Type Type Treatment Note Visit Start Time 09:25 Visit Stop Time 09:49 Total Visit Minutes 24 Number of MANGANESE BREAKER Visits 2 Physical Therapy Visit Comments Patient Comments agreeable to do PT M4 PT-IP Mobility and Gait Start: 01/03/22 12:52 Freq: NEEDED Status: Active Protocol: Document 01/04/22 09:25 KS (Rec: 01/04/22 12:53 KS [id number]) PT-Bed Mobility Assessment Supine to Sit Supine to Sit Moderate Assistance,1 Person Assistance,Head of Bed Elevated Sit to Supine Sit to Supine Minimal Assistance Scooting Scooting to Edge of Bed Contact Guard Assistance PT-Transfer Assessment Sit to and From Stand Sit to and from Stand Minimal Assistance,1 Person Assistance,Use of Upper Extremities Equipment Transfer Assistive Device Gait Belt,Front Wheeled Walker Orthotic/Prosthetic Devices or Brace: No Transfers Transfer Destination Bed Transfer Technique Sit<>stand Transfer Ability Level of Assist Minimal Assistance,1 Person Assistance,Use of Upper Extremities Comments Mobility Comments Pt in bed upon arrival and agreeable to working w/ therapy. Pt required Mod A for sup<>sit w/ HOB elevated today. CGA for scooting EOB and Min A for sit<>stand w/ FWW. After ~15 seconds standing, pt reported dizziness and lightheadedness and sat back down. BP: 79/47. Min A for sit<>sup, pt reported dizziness resolved and BP: 115/64. Pt left in bed w/ all needs in reach and nursing staff aware of symptomatic low BP. Gait Assessment Comments Gait Comments Unable due to symptomatic low BP. Stair Climbing Assessment Comments Stair Climbing Comments Not yet assessed, may be barrier to d/c. Pt w/ 5 steps leading into house. PT-Balance Assessment Sitting Balance and Reactions Static Sitting Balance Ability Fair Dynamic Sitting Balance Ability Fair Standing Balance and Reactions Static Standing Balance Ability Fair Device Used FWW M5 PT-IP Objective Assessments Start: 01/03/22 12:52 Freq: NEEDED Status: Active Protocol: Document 01/03/22 10:58 AB (Rec: 01/03/22 13:05 AB [id number]) Orientation Orientation/Cognition Level of Alertness Alert Orientation Name,Place,Situation Language Function Ability Hard of Hearing Safety Awareness Decreased Safety Awareness Strength Lower Extremity Strength Assessment Left Impaired Knee 3+/5 Sensation Assessment Sensation Gross Sensation WNL Muscle Tone Muscle Tone WNL Yes M6 PT-IP Treatment Start: 01/03/22 12:52 Freq: NEEDED Status: Active Protocol: Document 01/04/22 09:25 KS (Rec: 01/04/22 12:53 KS [id number]) Physical Therapy Treatment Education Education Provided Precautions,Weight Bearing Status,Post-Op Packet,Safety Other Treatments Other Treatment Performed Discussed SNF, which pt is open too. M7 PT-IP Assessment and Plan Start: 01/03/22 12:52 Freq: NEEDED Status: Active Protocol: Document 01/04/22 09:25 KS (Rec: 01/04/22 12:53 KS [id number]) PT Summary Assessment and Plan Potential Rehabilitation Potential Fair Status of Condition at Evaluation Evolving Summary Impairments Pain,ROM,Strength,Balance, Coordination,Sensation,Tone, Cognition,Bed Mobility, Transfers,Gait,Activity Tolerance Assessment Summary Pt required increased assistance for bed mobility today (Mod A) and Min A for sit<>Stand. Pt onyl able to tolerate ~15 seconds standing, so unable to progress gait today due to symptomatic low BP (79/47 while seated EOB). Pt open to SNF, which he would benefit from to improve strength, balance, and functional mobility prior to going home. Goals Bed Mobility Goal Standby Assistance Transfer Goal Standby Assistance,Front Wheeled Walker Gait Goal Standby Assistance,Front Wheel Walker Gait Distance 200 Other Goals up/down 5 steps B rails SBA Days to Meet Goals 10 Frequency of Treatment Frequency Of Treatment Twice a Day Treatment Plan Physical Therapy Treatment Plan Bed Mobility Training,Transfer Training,Gait Training, Therapeutic Exercise,Balance Retraining,Post Op Education, Discharge Planning,Hot or Cold Pack,Neuromuscular Re-ed, Coordination Retraining,Manual Therapy Weight Bearing Status Weight Bearing Status Weight Bear as Tolerated Allowed Weight Bearing Amount (enter % LLE WBAT with FWW per ortho MD or #) (%) order: mandatory use of walker min 6 weeks post-op Recommendations To Nursing Amount of Assist Needed 1 Person Assist Discharge Recommendations PT Discharge Recommendations SNF Rehab Transportation Needs at Discharge Wheelchair/Cabulance
[2022-01-04] MEDS: SODIUM CHLORIDE 0.9% 1,000 ML 1000 ML IV (11:00)
--- NOTE | 2022-01-04 14:46 | PT-IP ANOTE ---
Pt still low BP this PM, per RN hold for PM and check back tomorrow.
--- NOTE | 2022-01-04 15:43 | CM.DPNOTE ---
DCP Note Faxed referral to [facility] per request of patient. Therapies are recommending SNF, attempted eval this morning, report that patient orthostatic and that patient feels SNF may be the best DCP before return home w/spouse Awaiting f/u from Kiersten at [facility] re this referral. Patient has [facility] so auth would need to be started this weekend (?) vs Thursday PASRR completed in anticipation of SNF upon DC In addition, Angelica/CAROLINE states dtr was at the main nurses station this afternoon asking to speak with C[employer] OFF SAW SET UP OPERATOR, requests family conference with she and patient's spouse to discuss Dispo options. CM team will need to f/u tomorrow, this CUT OFF SAW SET UP OPERATOR unable to accommodate today: Angelica has taken down dtr's information, Joan Bassett cell [phone] JW
--- NOTE | 2022-01-04 16:55 | PM.PN.1 ---
Subjective Subjective Date Patient Seen: 01/04/22 Interval history: 76-year-old with cirrhosis admitted due to left hip fracture He is status post left hip ORIF. Today noted to be orthostatic with PT, BP 115/64 supine and dropped to 79/47 sitting with patient getting near syncopal. Also has been bradycardic with heart rate in the mid 50s off of his nadalol for the past couple of days. Exam Vital Signs (past 8 hours): - 01/04/22 09:04 01/04/22 13:20 Temperature 97.5 F L Pulse Rate 54 L 59 L Respiratory Rate 16 Blood Pressure 90/54 L 90/48 L Pulse Oximetry 97 Oxygen Delivery Method Room Air Oxygen Flow Rate 0 Narrative Exam Narrative: General: Alert, talkative Lungs: Clear Abdomen: Soft Extremities: No edema Neurological: Not confused, normal speech and affect Objective Labs Result Diagrams: 01/04/22 05:35 01/04/22 05:35 Labs: Laboratory Results - last 24 hr 01/04/22 01/04/22 05:35 05:35 WBC 7.9 D RBC 4.33 L Hgb 13.1 L Hct 37.8 L MCV 87.3 MCH 30.2 MCHC 34.6 RDW 15.8 H Plt Count 147 L Neut % (Auto) 77.6 H Lymph % (Auto) 12.8 L [place] % (Auto) 8.9 Eos % (Auto) 0.4 L Baso % (Auto) 0.3 Neut # (Auto) 6100 Lymph # (Auto) 1000 L [place] # (Auto) 700 Eos # (Auto) 0 Baso # (Auto) 0 Sodium 132 L Potassium 4.4 Chloride 100 Carbon Dioxide 27 BUN 25 H Creatinine 0.78 Estimated GFR > 60 BUN/Creatinine Ratio 32.1 H Glucose 92 Calcium 8.6 Total Bilirubin 1.2 AST 32 ALT 54 H Alkaline Phosphatase 200 H Total Protein 6.4 Albumin 3.5 Globulin 2.9 Albumin/Globulin Ratio 1.2 [facility] Medical History Abnormal chest x-ray Ascites due to alcoholic cirrhosis Chicken pox Chronic back pain (~1981) Colon polyps Gout (~2007) Hearing loss (~1983) Hemorrhoid (~1984) History of varicose veins (~1987) Knee pain (~1965) 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 Mother Cancer Sister Cancer History of heart disease Hypertension Social History marital status: household members: spouse Smoking Status: Former smoker alcohol intake: former additional social history: Lives at home with his . His uses a walker and not be able to assist him. Assessment & Plan Assessment & Plan narrative: 1. Left hip femur fracture, acute, pathological due to osteoporosis -continue therapy -routine pain control -Lovenox for DVT prophylaxis -SNF rehab 2.Alcoholic cirrhosis with ascites -discontinued diuretics due to orthostatic hypotension -discontinued beta-raoul due to bradycardia -outpatient follow-up with his GI doctor 3. Orthostatic hypotension -patient endorses near-syncope episodes at home -as above, stopped his beta-raoul presumably provided for history of esophageal varices -recommend stopping routine diuretics, take furosemide and spironolactone as needed only if he notices abdominal swelling -NS x1 L provided on 01/04 Time Spent With Patient Critical Care time: I spent a total of [] minutes of critical care time on this patient's care today; this time is exclusive of procedural time. Quality VTE Deep Vein Thrombosis/Pulmonary Embolism Present on Admission: No
--- NOTE | 2022-01-04 16:57 | PC.NURSE ---
Pt is AxOx4, needs moderate assistance with FWW. VSS except BP is soft all day so pt recieved 1000 ml of bolus NS but BP is still soft low 90s. is aware. PT skipped the afternoon therapy due to low BP even after bolus. Pt is voiding pretty well. Otherwise, no problem. Continue monitor.
[2022-01-04] MEDS: HYDROMORPHONE 2 MG TABLET PO (20:28)
[2022-01-05] VITALS (14 sets, daily range): BP systolic 88–128; BP diastolic 48–69; PULSE 60–78; RESP 16–18; TEMP 36.1–37.2; O2SAT 93–100
[2022-01-05] MEDS: ENOXAPARIN 40 MG/0.4 ML SYRINGE SUBCUT (09:59)
[2022-01-05] MEDS: CHOLECALCIFEROL (VITAMIN D3) 1,000 UNIT TABLET 1000 UNIT PO (09:59)
[2022-01-05] MEDS: CALCIUM CARBONATE 600 MG TABLET PO ×2 (09:59→20:38)
[2022-01-05] MEDS: DOCUSATE 100 MG CAPSULE PO ×2 (09:59→20:38)
--- NOTE | 2022-01-05 10:15 | PM.PNPO.1 ---
Subjective Subjective Date Patient Seen: 01/05/22 Time Patient Seen: 10:16 Interval history: Postop day 2 left nondisplaced femoral neck fracture CRPP Doing okay having muscular pain. Recommended for assisted with physical therapy No fevers chills nausea or vomiting. Concerned about why he fell and to make sure his medical conditions are communicated at discharge Exam Vital Signs (past 8 hours): - 01/05/22 03:05 01/05/22 04:09 01/05/22 05:00 Temperature 98.2 F 96.9 F L Pulse Rate 67 60 Respiratory Rate 16 18 Blood Pressure 88/48 L 115/67 Pulse Oximetry 94 93 94 01/05/22 08:00 01/05/22 09:39 Temperature 97.7 F Pulse Rate 77 Respiratory Rate 16 Blood Pressure 128/69 Pulse Oximetry 98 98 Oxygen Delivery Method Room Air Oxygen Flow Rate 0 Narrative Exam Narrative: Alert oriented male no acute distress. Sitting up in bed HEENT exam normocephalic atraumatic Respiratory exam unlabored on room air CV exam regular rate Lower extremity exam: Left lower extremity dressing intact small amount of bloody drainage. No leakage. Thigh is soft. Compartments of the thigh and lower extremity soft. SCDs in place. Demonstrates 5/5 dorsiflexion plantar flexion of the ankles. Palpable distal pulses. Objective Imaging Left hip two view intraop: My impression: Intraoperative AP and lateral fluoro Fixation nondisplaced left femoral neck fracture with 3 cannulated screws. Anatomic reduction. Pre-existing arthritis demonstrated. Radiologist's impression: IMPRESSION: ORIF of left femoral neck fracture. Dictated by: Renate Vogel M.D. on 01/02/2022 at 20:05 Labs Result Diagrams: 01/04/22 05:35 01/04/22 05:35 [facility] Medical History Abnormal chest x-ray Ascites due to alcoholic cirrhosis Chicken pox Chronic back pain (~1981) Colon polyps Gout (~2007) Hearing loss (~1983) Hemorrhoid (~1984) History of varicose veins (~1987) Knee pain (~1965) 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 Mother Cancer Sister Cancer History of heart disease Hypertension Social History marital status: household members: spouse Smoking Status: Former smoker alcohol intake: former additional social history: Lives at home with his . His uses a walker and not be able to assist him. Assessment & Plan Post-op Postoperative Procedures: Procedures Operation Date: 01/02/22 17:00 Actual Procedure Side Surgeon p ORIF Hip/Cannulated Screws Left Almaz Arevalo MD Postoperative day: 2 Postoperative status narrative: Stable postoperative appearance. Pain is controlled at rest. Endorses muscle pain with attempts to mobilize. Discussed with patient that this is normal after fracture and surgery such as the 1 he had. Also discussed that hip fracture is common with a ground level fall in patients his age and this is related to age-related osteoporosis recommend treatment with vitamin-D and outpatient continued evaluation possible DEXA scan or additional medications if indicated. His PCP is Dr. Silva. Discussed discharge summary and any medication changes that internal medicine may make her at will be provided on this for him. Discussed weightbear as tolerated but must use walker for all ambulation least for 6 weeks and encourage longer for balance. Lovenox for DVT prophylaxis. Postoperative plan narrative: Weightbearing as tolerated with a walker. Mandatory use of walker minimum 6 weeks post operatively. No other hip precautions. Continue Lovenox for DVT prophylaxis through 01/30/2022. Follow-up with PA at [facility] between January 13 and January 16 for suture removal. Dressing may be changed to clean gauze prior to discharge--clean gauze and Tegaderm Time Spent With Patient Time with patient: less than 15 minutes Quality VTE Deep Vein Thrombosis/Pulmonary Embolism Present on Admission: No
--- NOTE | 2022-01-05 11:45 | PT.IPTN ---
Current Diagnoses Fracture of unspecified part of neck of unspecified femur, initial encounter for closed fracture (01/02/22) Other specified postprocedural states (01/02/22) Surgery Performed Operation Date: 01/02/22 17:00 Actual Procedures p ORIF Hip/Cannulated Screws(Left) - Almaz Arevalo MD Physical Therapy Treatment Note M2 PT-IP Current Condition Start: 01/03/22 12:52 Freq: NEEDED Status: Active Protocol: Document 01/03/22 10:58 AB (Rec: 01/03/22 13:05 AB [id number]) Physical Therapy Current Condition Current Condition Evaluation Date 01/03/22 Treatment Diagnosis L femur fx s/p cannulated screws; difficulty in walking Onset Date 01/02/22 M3 PT-IP Subjective Start: 01/03/22 12:52 Freq: NEEDED Status: Active Protocol: Document 01/05/22 11:45 AW (Rec: 01/05/22 12:20 AW [id number]) Subjective Physical Therapy Visit Type Type Treatment Note Visit Start Time 11:11 Visit Stop Time 11:45 Total Visit Minutes 34 Number of ORCHESTRA CONDUCTOR Visits 0 Physical Therapy Visit Comments Patient Comments Pt is very concerned about getting out of bed due to ongoing lightheadedness but agrees to one step at a time. M4 PT-IP Mobility and Gait Start: 01/03/22 12:52 Freq: NEEDED Status: Active Protocol: Document 01/05/22 11:45 AW (Rec: 01/05/22 12:20 AW [id number]) PT-Bed Mobility Assessment Supine to Sit Supine to Sit Contact Guard Assistance,1 Person Assistance,Bedrails Scooting Scooting to Edge of Bed Contact Guard Assistance PT-Transfer Assessment Sit to and From Stand Sit to and from Stand Minimal Assistance,1 Person Assistance,Use of Upper Extremities Equipment Transfer Assistive Device Gait Belt,Front Wheeled Walker Orthotic/Prosthetic Devices or Brace: No Transfers Transfer Destination Chair Transfer Technique Stand Step Pivot Transfer Ability Level of Assist Minimal Assistance,1 Person Assistance,Use of Upper Extremities Comments Mobility Comments Pt was lying in bed as PT arrived. BP supine 95/61 HR 62 . He sat up EOB CGA. BP after two minutes was 95/65 HR 78. Pt stood min A and used FWW to steady himself. BP after two minutes was 83/54 HR 82. Pt denied lightheadedness. He transferred to the chair 3 feet from the bed with FWW min A. BP after transfer was 104/ 64 HR 68. Pt reported feeling better than expected and agreed to ambulate with chair follow for safety. He stood min A and used FWW to walk a total of 40 feet in the room with FWW CGA. After activity, BP was 92/55 HR 68. Pt was left with call light and tray table in reach. He verbalized understanding to call for any mobility needs. Gait Assessment Gait Gait Assistance Required: Contact Guard Assist,Minimum Assistance,1 Person Assist Distance (Feet) 40 Able to Maintain Weight Bearing Status Yes During Gait Assistive Devices Assistive Device Gait Belt,Front Wheeled Walker Orthotic/Prosthetic Devices or Brace: No Gait Deviations General Gait Pattern Antalgic,Decreased Stride Length,Decreased Feet Clearance,Step-to Gait Factors Limiting Gait Function Factors Limiting Gait Function Decreased Activity Tolerance, Decreased Strength,Poor Balance,Poor Safety Awareness Comments Gait Comments Pt was safe with FWW, needing CGA to min A at times for obstacle navigation. Stair Climbing Assessment Comments Stair Climbing Comments Not yet assessed, may be barrier to d/c. Pt w/ 5 steps leading into house. PT-Balance Assessment Sitting Balance and Reactions Static Sitting Balance Ability Fair Dynamic Sitting Balance Ability Fair Standing Balance and Reactions Static Standing Balance Ability Fair Dynamic Standing Balance Ability Fair Device Used FWW M5 PT-IP Objective Assessments Start: 01/03/22 12:52 Freq: NEEDED Status: Active Protocol: Document 01/03/22 10:58 AB (Rec: 01/03/22 13:05 AB [id number]) Orientation Orientation/Cognition Level of Alertness Alert Orientation Name,Place,Situation Language Function Ability Hard of Hearing Safety Awareness Decreased Safety Awareness Strength Lower Extremity Strength Assessment Left Impaired Knee 3+/5 Sensation Assessment Sensation Gross Sensation WNL Muscle Tone Muscle Tone WNL Yes M6 PT-IP Treatment Start: 01/03/22 12:52 Freq: NEEDED Status: Active Protocol: Document 01/05/22 11:45 AW (Rec: 01/05/22 12:20 AW [id number]) Physical Therapy Treatment Exercises Exercises Ankle Pumps,Gluteal Sets,Short Arc Quads Education Education Provided Weight Bearing Status,Safety M7 PT-IP Assessment and Plan Start: 01/03/22 12:52 Freq: NEEDED Status: Active Protocol: Document 01/05/22 11:45 AW (Rec: 01/05/22 12:20 AW [id number]) PT Summary Assessment and Plan Summary Impairments Pain,ROM,Strength,Balance, Coordination,Sensation,Tone, Cognition,Bed Mobility, Transfers,Gait,Activity Tolerance Progress Towards Goals Progressing Toward Goals,Slow Progress due to Medical Issues Assessment Summary Pt remained hypotensive today but was asymptomatic. He needed min assist for sit to stand and transfers, CGA/min A for ambulation with FWW. Pt lacks assist at home and will need SNF rehab to improve mobility independence before return home. Goals Bed Mobility Goal Standby Assistance Transfer Goal Standby Assistance,Front Wheeled Walker Gait Goal Standby Assistance,Front Wheel Walker Gait Distance 200 Other Goals up/down 5 steps B rails SBA Days to Meet Goals 10 Frequency of Treatment Frequency Of Treatment Twice a Day Treatment Plan Physical Therapy Treatment Plan Bed Mobility Training,Transfer Training,Gait Training, Therapeutic Exercise,Balance Retraining,Post Op Education, Discharge Planning,Hot or Cold Pack,Neuromuscular Re-ed, Coordination Retraining,Manual Therapy Weight Bearing Status Weight Bearing Status Weight Bear as Tolerated Allowed Weight Bearing Amount (enter % LLE WBAT with FWW per ortho MD or #) (%) order: mandatory use of walker min 6 weeks post-op Recommendations To Nursing Amount of Assist Needed 1 Person Assist Discharge Recommendations PT Discharge Recommendations SNF Rehab Transportation Needs at Discharge Wheelchair/Cabulance
--- NOTE | 2022-01-05 11:49 | CM.DPC ---
Addendum entered by Alondra Zamora 01/07/22 10:45: DCP/continued: Reviewed notification from provider that patient okay to d/c to [facility] today. Placed call to January to check on whether or not authorization has been received. Per January they have obtained authorization. ASSISTANT CURATOR asked DEVON/Elvia to finalize d/c plan. Placed call to daughter/Joan to notify her of plan. Joan appreciative of the call and will let patient's spouse know. P: [facility] on 01-06-22. MAGGY Dalton Original Note: DCP SNF Planning: Per MD, pt remains stable and awaiting insurance auth for SNF placement due to his hip fx and surgery and 2PA. SW spoke to w/e admissions at [facility] and she confirms pt seems appropriate and willing to accept and initiated [facility] auth today and may get answer tonight or tomorrow. Pt confirmed pt is COVID vaccinated with one booster and printed copy of vax info. PASRR previously completed in anticipation of SNF. SW called pt's Dtr Joan [phone] who has been pt's designated visitor and updated on SNF acceptance and insurance auth process and Dtr very appreciative. Dtr also states pt's spouse was wanting to visit pt and she was told that if they have a Goals of Care discussion bedside then this would allow both her and spouse to be bedside. SW discussed the purpose of Goals of Care and pt's statement to SW about his cirrhosis and shorter life span and willing to inquire with MD about Goals of Care meeting. CHAI updated MD and he will call Dtr right now and provide update towards determining if makes sense to have Goals of Care here or wait to see how pt does at SNF and have this discussion with pt's PCP who knows pt best. Plan: SW to follow for [facility] auth for SNF with [facility] of [facility] and keeping Dtr updated. MAGGY Kuhn
--- NOTE | 2022-01-05 14:25 | PM.PN.1 ---
Subjective Subjective Date Patient Seen: 01/05/22 Interval history: 76-year-old with cirrhosis, near-syncope admitted due to left hip fracture, status post ORIF. Yesterday patient was noted to be very orthostatic and near-syncopal going from supine to standing by side of bed with PT.. This is similar to episodes he has had from time to time at home. He was not getting his diuretics or beta raoul since prior to admission. Patient not lightheaded or dizzy today with mobilizing out of bed. Are generally low 100 range. Exam Vital Signs (past 8 hours): - 01/05/22 08:00 01/05/22 09:00 01/05/22 09:39 Temperature 97.7 F Pulse Rate 77 Respiratory Rate 16 Blood Pressure 128/69 Pulse Oximetry 98 98 98 01/05/22 12:00 01/05/22 13:00 Temperature 98.2 F Pulse Rate 74 Respiratory Rate 16 Blood Pressure 102/64 Pulse Oximetry 98 98 Oxygen Delivery Method Room Air Oxygen Flow Rate 0 Narrative Exam Narrative: General:? Alert, talkative Lungs:? Clear Abdomen:? Soft Extremities:? No edema Neurological:? Not confused, normal speech and affect Objective Labs Result Diagrams: 01/04/22 05:35 01/04/22 05:35 [facility] Medical History Abnormal chest x-ray Ascites due to alcoholic cirrhosis Chicken pox Chronic back pain (~1981) Colon polyps Gout (~2007) Hearing loss (~1983) Hemorrhoid (~1984) History of varicose veins (~1987) Knee pain (~1965) 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 Mother Cancer Sister Cancer History of heart disease Hypertension Social History marital status: household members: spouse Smoking Status: Former smoker alcohol intake: former additional social history: Lives at home with his . His uses a walker and not be able to assist him. Assessment & Plan Assessment & Plan narrative: 1. Left hip femur fracture, acute, pathological due to osteoporosis -continue therapy -routine pain control -Lovenox for DVT prophylaxis -SNF rehab -ortho note:Postoperative plan narrative: Weightbearing as tolerated with a walker.? Mandatory use of walker minimum 6 weeks post operatively.? No other hip precautions.? Continue Lovenox for DVT prophylaxis through 01/30/2022.? Follow-up with PA at [facility] between January 13 and January 16 for suture removal.? Dressing may be changed to clean gauze prior to discharge--clean gauze and Tegaderm 2.Alcoholic cirrhosis with ascites -discontinued routine diuretics due to orthostatic hypotension -discontinued beta-raoul (nadolol) due to bradycardia -outpatient follow-up with his GI doctor 3. Orthostatic hypotension -patient endorses near-syncope episodes at home -as above, stopped his beta-raoul presumably provided for history of esophageal varices -recommend stopping routine diuretics, take furosemide and spironolactone as needed only if he notices abdominal swelling -NS x1 L provided on 01/04 SNF discharge likely tomorrow, Thursday. Time Spent With Patient Critical Care time: I spent a total of [] minutes of critical care time on this patient's care today; this time is exclusive of procedural time. Quality VTE Deep Vein Thrombosis/Pulmonary Embolism Present on Admission: No
[2022-01-05] MEDS: HYDROMORPHONE 2 MG TABLET PO (20:37)
[2022-01-06] VITALS (8 sets, daily range): BP systolic 96–124; BP diastolic 55–83; PULSE 59–83; RESP 14–18; TEMP 36.2–36.7; O2SAT 93–99
--- NOTE | 2022-01-06 07:53 | P.PN_ITS ---
Subjective Subjective Date Patient Seen: 01/06/22 Time Patient Seen: 07:53 Interval history: Lying in bed, moving legs around independently without any difficulty. Exam Vital Signs (past 8 hours): - 01/06/22 01:00 01/06/22 05:00 Temperature 97.6 F Pulse Rate 67 Respiratory Rate 18 Blood Pressure 101/57 L Pulse Oximetry 95 96 Oxygen Delivery Method Room Air Oxygen Flow Rate 0 Narrative Exam Narrative: 5/5 strength in hip flexors, quadriceps, hamstrings, DF, PF, EHL bilaterally. Sensation to light touch intact throughout BLE. Calves soft, compressible, nontender. Old bloody drainage to left hip gauze; dressing otherwise intact. Objective Labs Result Diagrams: 01/04/22 05:35 01/04/22 05:35 [facility] Medical History Abnormal chest x-ray Ascites due to alcoholic cirrhosis Chicken pox Chronic back pain (~1981) Colon polyps Gout (~2007) Hearing loss (~1983) Hemorrhoid (~1984) History of varicose veins (~1987) Knee pain (~1965) 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 Mother Cancer Sister Cancer History of heart disease Hypertension Social History marital status: household members: spouse Smoking Status: Former smoker alcohol intake: former additional social history: Lives at home with his . His uses a walker and not be able to assist him. Assessment & Plan Post-op Assessment and plan (1) Status post hip surgery: Assessment and Plan narrative: Age-related osteoporosis: recommend treatment with vitamin-D and outpatient continued evaluation possible DEXA scan or additional medications if indicated.? Weightbearing as tolerated with a walker.? Mandatory use of walker minimum 6 weeks post operatively.? No other hip precautions.? Continue Lovenox for DVT prophylaxis through 01/30/2022.? Follow-up with PA at [facility] between January 13 and January 16 for suture removal.? Postoperative Procedures: Procedures Operation Date: 01/02/22 17:00 Actual Procedure Side Surgeon p ORIF Hip/Cannulated Screws Left Almaz Arevalo MD Postoperative day: 4 Quality VTE Deep Vein Thrombosis/Pulmonary Embolism Present on Admission: No
[2022-01-06] MEDS: CALCIUM CARBONATE 600 MG TABLET PO (09:14)
[2022-01-06] MEDS: DOCUSATE 100 MG CAPSULE PO (09:14)
[2022-01-06] MEDS: CHOLECALCIFEROL (VITAMIN D3) 1,000 UNIT TABLET 1000 UNIT PO (09:14)
[2022-01-06] MEDS: ENOXAPARIN 40 MG/0.4 ML SYRINGE SUBCUT (09:14)
--- NOTE | 2022-01-06 10:18 | PM.DS.1 ---
History of Present Illness History of Present Illness Date Patient Seen: 01/06/22 Time Patient Seen: 10:18 Chief complaint: near syncope, GLF, L hip pain Narrative: This is a 76-year-old male with a past medical history of alcoholic cirrhosis with ascites who presented to the emergency room with left hip pain after a fall at home. Patient states that he gets up a couple of times a night because of diuretics to urinate, around 3:00 a.m. this morning he was walking and began to feel a burning sensation on his shins bilaterally, then he became lightheaded and felt like he needed to sit down but suddenly he was on the ground. He fell onto his left side, he denies hitting his head, he denies loss of consciousness. He is not on any blood thinners. He actually moved himself into bed and his pain continued on his left hip. He also hit his elbow on the left side. He denies any recent difficulty with shortness of breath or dyspnea on exertion. He states that his abdomen is actually much less distended. He was recently initiated on diuretic therapy for his abdominal ascites and follows with Gastroenterology as an outpatient. In the emergency room, the patient's blood pressures were slightly below normal, not uncommon for the patient given his cirrhosis. The remainder of his vital signs were unremarkable. Imaging showed a left femur fracture Discharge Providers Provider Date of admission: 01/02/22 08:56 Discharge Date: 01/06/22 Primary care physician: Sb Silva MD Consults: 01/02/22 08:56 Consult to Orthopedic Surgery Routine Comment: Consulting Provider: Almaz Arevalo Reason for consultation: left hip Has provider been notified: Yes 01/02/22 19:49 Consult to Discharge Planning Routine Comment: Consult to Physical Therapy Evaluate & Treat Comment: Weightbear as tolerated with walker Physician Instructions: Evaluate and Treat Consult to Respiratory Therapy Evaluate & Treat Comment: Physician Instructions: Evaluate and treat Discharge provider: Philip Velasquez DO Summary Hospital Course Discharge Diagnosis: 1. Left hip femur fracture, acute, pathological due to osteoporosis 2.Alcoholic cirrhosis with ascites 3. Orthostatic hypotension Hospital Course: This is a 76-year-old male with a past medical history of alcoholic cirrhosis who was admitted with a left femur fracture and underwent surgical repair with Orthopedic surgery. His postoperative course was complicated by orthostatic hypotension, likely due to over-diuresis as an outpatient. His home now the law was discontinued and it is recommended that his diuretics be used on an as-needed basis for abdominal distension or weight gain home. 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 If orthostatic hypotension continues at the half-way facility, 1 consideration would be to initiate midodrine 2.2-5 mg 3 times a day as needed however it is not necessary at this time. He should continue on DVT prophylaxis with Lovenox daily as recommended by Orthopedic surgery. Pain control has been achieved with Tylenol and as needed hydromorphone. He is transferring to half-way facility for continued therapy after his left femur fracture. Time Spent with Patient Time spent: Greater than 30 minutes Exam Vital Signs (past 8 hours): - 01/06/22 05:00 01/06/22 08:35 01/06/22 08:46 Temperature 97.6 F 98.1 F Pulse Rate 67 59 L Respiratory Rate 18 16 Blood Pressure 101/57 L 97/55 L Pulse Oximetry 96 96 99 01/06/22 08:50 01/06/22 09:15 Temperature 97.1 F L Pulse Rate 83 Respiratory Rate 14 Blood Pressure 124/83 Pulse Oximetry 99 93 Oxygen Delivery Method Room Air Oxygen Flow Rate 0 Narrative Exam Narrative: General:? Alert, no acute distress Lungs:? Clear to auscultation bilaterally CV: Regular rate and rhythm with no murmurs, rubs, or gallops Abdomen:? Soft, nontender, and nondistended Extremities:? No edema, or joint effusions Neurological:? Not confused, normal speech and affect Objective Labs Result Diagrams: 01/04/22 05:35 01/04/22 05:35 [facility] Medical History Abnormal chest x-ray Ascites due to alcoholic cirrhosis Chicken pox Chronic back pain (~1981) Colon polyps Gout (~2007) Hearing loss (~1983) Hemorrhoid (~1984) History of varicose veins (~1987) Knee pain (~1965) 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 Mother Cancer Sister Cancer History of heart disease Hypertension Social History marital status: household members: spouse Smoking Status: Former smoker alcohol intake: former additional social history: Lives at home with his . His uses a walker and not be able to assist him. Discharge Plan Discharge Plan Patient Disposition: SNF Transfer to: [facility] Provider Discharge Comment: Patient with history of alcoholic cirrhosis admitted with a left femur fracture, s/p surgery with orthopedics. Transfer to SNF for continued therapy. Discharge orders & Medications Prescriptions: New acetaminophen 325 mg capsule 650 mg PO Q8HR PRN (Reason: pain) 30 Days Qty: 90 0RF hydromorphone 2 mg tablet 2 mg PO Q4-6H PRN (Reason: pain) 7 Days Qty: 90 0RF enoxaparin [Lovenox] 40 mg/0.4 mL syringe 40 mg SUBCUT DAILY 28 Days Qty: 4 0RF Changed furosemide 40 mg tablet 40 mg PO DAILY PRN (Reason: Abdominal Distention) Qty: 0 0RF Rx Instructions: as needed for abdominal distension and weight gain for ascites spironolactone 50 mg tablet 50 mg PO DAILY PRN (Reason: Abdominal Distention) Qty: 30 1RF Rx Instructions: as needed with furosemide for abdominal distension and weight gain Discontinued nadolol 40 mg tablet 40 mg PO DAILY 0RF Follow up/Referrals: Sb Silva MD [Primary Care Provider] - Almaz Arevalo MD [Physician] - 2 Weeks (Follow-up with PA at [facility] between January 13 and January 16 for suture removal.) Discharge Health Status Multidrug resistant organism: No MDRO Precautions: [place] Diet/Activity/Treatments Diet: Diet as Tolerated and Low-sodium Activity: Weightbearing as tolerated with a walker.? Mandatory use of walker minimum 6 weeks post operatively.? No other hip precautions.? Follow-up with PA at [facility] between January 13 and January 16 for suture removal. [facility] Reason for rehabilitation: Post-operative therapy Rehab type: Physical therapy and Occupational therapy Discharge Data Primary Care Provider: Sb Silva Quality VTE Deep Vein Thrombosis/Pulmonary Embolism Present on Admission: No
--- NOTE | 2022-01-06 10:36 | PT.IPTN ---
Current Diagnoses Fracture of unspecified part of neck of unspecified femur, initial encounter for closed fracture (01/02/22) Other specified postprocedural states (01/02/22) Surgery Performed Operation Date: 01/02/22 17:00 Actual Procedures p ORIF Hip/Cannulated Screws(Left) - Almaz Arevalo MD Physical Therapy Treatment Note M2 PT-IP Current Condition Start: 01/03/22 12:52 Freq: NEEDED Status: Discharge Protocol: Document 01/06/22 10:05 SP (Rec: 01/06/22 17:42 SP [id number]) Physical Therapy Current Condition Current Condition Evaluation Date 01/03/22 Treatment Diagnosis L femur fx s/p cannulated screws; difficulty in walking Onset Date 01/02/22 M3 PT-IP Subjective Start: 01/03/22 12:52 Freq: NEEDED Status: Discharge Protocol: Document 01/06/22 10:05 SP (Rec: 01/06/22 17:42 SP [id number]) Subjective Physical Therapy Visit Type Type Treatment Note Visit Start Time 10:05 Visit Stop Time 10:36 Total Visit Minutes 31 Notes Vitals taken during tx: supine: BP88/52 HR 80 SaO2 90s Seated: 92/65 HR 78 standin/63 HR 86 Post mobility: forgot to write down improved and nonsymptomatic throughout tx. Number of MONITOR TECH Visits 1 Physical Therapy Visit Comments Patient Comments Pt is concerned about getting out of bed due to ongoing syncope episodes has and many times no warning. Patient Goals to go rehab to get stronger to return home. Therapy Pain Assessment Pain When Pain Assessed During Mobility Pain Present Pain Present Pain Reported Location Left Hip Scale Used not quantified low Description Aching,Tightness,With Movement Pain Behaviors Facial Grimacing,Holding Area Pain Management Techniques Apply Cold,Distraction,Re- positioning M4 PT-IP Mobility and Gait Start: 01/03/22 12:52 Freq: NEEDED Status: Discharge Protocol: Document 01/06/22 10:05 SP (Rec: 01/06/22 17:42 SP [id number]) PT-Bed Mobility Assessment Supine to Sit Supine to Sit Contact Guard Assistance,1 Person Assistance,Bedrails Scooting Scooting to Edge of Bed Contact Guard Assistance PT-Transfer Assessment Sit to and From Stand Sit to and from Stand Minimal Assistance,1 Person Assistance,Use of Upper Extremities Equipment Transfer Assistive Device Gait Belt,Front Wheeled Walker Orthotic/Prosthetic Devices or Brace: No Transfers Transfer Destination Chair Transfer Technique pt ambulated using FWW Transfer Ability Level of Assist Contact Guard Assistance, Minimal Assistance,1 Person Assistance,Use of Upper Extremities Comments Mobility Comments Completed BLE ex: QS, GS, HS, AP pre mobility. supine>sit CGA, sit>stand Min A, SPT bed> chair good verbal self cues for positioning BLE and FWW. stand>sit Min A good hand placement. Sit>stand CG- min A gait further into room followed by chair via [employer] then hallway then back to chair w/ wc follow via [employer] but not needed approx 90ft total. MONITOR TECH assisted chair leg rest elevation and CP to L hip for pain control. Pt nonsymptomatic, stable vitals. Recommending SNF for strengthening toward functional indepenedence. Gait Assessment Gait Gait Assistance Required: Contact Guard Assist,1 Person Assist Distance (Feet) 90 Able to Maintain Weight Bearing Status Yes During Gait Assistive Devices Assistive Device Gait Belt,Front Wheeled Walker Orthotic/Prosthetic Devices or Brace: No Gait Deviations General Gait Pattern Antalgic,Decreased Stride Length,Decreased Feet Clearance,Flexed Trunk Factors Limiting Gait Function Factors Limiting Gait Function Decreased Activity Tolerance, Decreased Strength,Limited Range of Motion,Pain,Poor Balance Comments Gait Comments see mobility comments. Cued increase foot clearance and stride body closer to FWW with upright posture, especially during turns. Stair Climbing Assessment Comments Stair Climbing Comments Not yet assessed, may be barrier to d/c. Pt w/ 5 steps leading into house. PT-Balance Assessment Sitting Balance and Reactions Static Sitting Balance Ability Normal Dynamic Sitting Balance Ability Good Standing Balance and Reactions Static Standing Balance Ability Good Dynamic Standing Balance Ability Fair Device Used FWW M5 PT-IP Objective Assessments Start: 01/03/22 12:52 Freq: NEEDED Status: Discharge Protocol: Document 01/03/22 10:58 AB (Rec: 01/03/22 13:05 AB [id number]) Orientation Orientation/Cognition Level of Alertness Alert Orientation Name,Place,Situation Language Function Ability Hard of Hearing Safety Awareness Decreased Safety Awareness Strength Lower Extremity Strength Assessment Left Impaired Knee 3+/5 Sensation Assessment Sensation Gross Sensation WNL Muscle Tone Muscle Tone WNL Yes M6 PT-IP Treatment Start: 01/03/22 12:52 Freq: NEEDED Status: Discharge Protocol: Document 01/06/22 10:05 SP (Rec: 01/06/22 17:42 SP [id number]) Physical Therapy Treatment Exercises Exercises Ankle Pumps,Gluteal Sets,Quad Sets,Heel Slides Education Education Provided Weight Bearing Status,Safety Other Treatments Other Treatment Performed Discussed SNF, which pt is open too. M7 PT-IP Assessment and Plan Start: 01/03/22 12:52 Freq: NEEDED Status: Discharge Protocol: Document 01/06/22 10:05 SP (Rec: 01/06/22 17:42 SP [id number]) PT Summary Assessment and Plan Potential Rehabilitation Potential Fair Status of Condition at Evaluation Evolving Summary Impairments Pain,ROM,Strength,Balance, Coordination,Sensation,Tone, Cognition,Bed Mobility, Transfers,Gait,Activity Tolerance Progress Towards Goals Progressing Toward Goals,Slow Progress due to Medical Issues ,Slow Progress due to Activity Tolerance Assessment Summary Pt BP lower but improvement w/ mobility, nonsymptomatic throughout, progress mobilitiy CGA during trasnfers using FWW, gait hallway 90 ft total followed by w/c for safety with hx syncope. Recommeding SNF for progression in functional strengthening toward PLOF. Stair mgt require for safe DC home. Goals Bed Mobility Goal Standby Assistance Transfer Goal Standby Assistance,Front Wheeled Walker Gait Goal Standby Assistance,Front Wheel Walker Gait Distance 200 Other Goals up/down 5 steps B rails SBA Days to Meet Goals 10 Frequency of Treatment Frequency Of Treatment Twice a Day Treatment Plan Physical Therapy Treatment Plan Bed Mobility Training,Transfer Training,Gait Training, Therapeutic Exercise,Balance Retraining,Post Op Education, Discharge Planning,Hot or Cold Pack,Neuromuscular Re-ed, Coordination Retraining,Manual Therapy Other Recommendations and Next Treatment gait further distance, balance Focus activities, stair mgt. Weight Bearing Status Weight Bearing Status Weight Bear as Tolerated Allowed Weight Bearing Amount (enter % LLE WBAT with FWW per ortho MD or #) (%) order: mandatory use of walker min 6 weeks post-op Recommendations To Nursing Amount of Assist Needed 1 Person Assist Discharge Recommendations PT Discharge Recommendations SNF Rehab Transportation Needs at Discharge Wheelchair/Cabulance
--- NOTE | 2022-01-06 13:18 | PC.NURSE ---
Allevyn dressing changed to left elbow skin tear, old dressing to left hip removed and Coversite applied. IV removed. Pt has an Allevyn foam dsg to his coccyx area. Called report to Yisel at [facility] and gave full Pt report. Belongings packed up and Pt ready for transfer to [facility] when they arrive.
[2022-01-06 13:31] LABS: COVID19 -Nasal RAPID Negative (Negative)
--- NOTE | 2022-01-06 13:55 | PC.NURSE ---
Pt out via w/c by facility designee with packet and all belongings.
== END 2022-01-06 13:57 | DRG 482 ==
LOC: ED 08:47 → AC 08:56
PROVIDERS: Orthopaedic Surgery Foot and Ankle Surgery; Admitting Provider Internal Medicine; Emergency Provider Emergency Medicine; PCP Student in an Organized Health Care Education/Training Program; Referring Provider Emergency Medicine; Visit Provider Internal Medicine
PROC: 0QH734Z Insertion of Internal Fixation Device into Left Upper Femur, Percutaneous Approach (ICD-10-PCS; principal; 2022-01-02 17:00)
DX: M80.052A Age-related osteoporosis with current pathological fracture, left femur, initial encounter for fracture (principal); K70.31 Alcoholic cirrhosis of liver with ascites; I95.1 Orthostatic hypotension; R00.1 Bradycardia, unspecified; I45.10 Unspecified right bundle-branch block; F17.200 Nicotine dependence, unspecified, uncomplicated; W18.30XA Fall on same level, unspecified, initial encounter; Z20.822 Contact with and (suspected) exposure to COVID-19
CPT/HCPCS: 36415; 71045; 73502; 76000; 80053; 82550; 83690; 84484; 85025; 85610; 85730; 87635; 93005; 94760; 96374; 97110; 97116; 97162; 97530; 99284; C9803; J0171; J0690; J1650; J3010

== ENCOUNTER → 2022-03-21 14:57 | Outpatient (CLI) | payer MEDICARE, SELFPAY ==
[2022-01-02 13:00] VITALS: BMI 21.3
== END ==
PROVIDERS: PCP Student in an Organized Health Care Education/Training Program; Referring Provider Student in an Organized Health Care Education/Training Program; Visit Provider Orthopaedic Surgery Foot and Ankle Surgery
DX: M80.052D Age-related osteoporosis with current pathological fracture, left femur, subsequent encounter for fracture with routine healing (principal)
CPT/HCPCS: 77080

== ENCOUNTER → 2022-04-09 08:29 | Outpatient (CLI) | payer MEDICARE, SELFPAY ==
[2022-01-02 13:00] VITALS: BMI 21.3
[2022-04-09 09:48] LABS: Alanine Aminotransferase 42 IU/L (<50); Albumin 4.3 g/dL (3.5-5.0); Albumin Globulin Ratio 1.3 (1.0-2.8); Alkaline Phosphatase 290 U/L (38-126); Aspartate Aminotransferase 33 IU/L (17-59); BUN Creatinine Ratio 34.5 (6-22); Bilirubin Total 1.4 mg/dL (0.2-1.3); Blood Urea Nitrogen 39 mg/dL (9-20); Calcium 9.2 mg/dL (8.4-10.2); Carbon Dioxide 31 mmol/L (22-32); Chloride 99 mmol/L (98-107); Estimated Glomerular Filt Rate > 60 mL/min (>60); Globulin 3.3 g/dL (1.7-4.1); Glucose 95 mg/dL (80-110); HEMOLYSIS < 15 (0-50); Potassium 4.4 mmol/L (3.4-5.1); Sodium 135 mmol/L (137-145); Total Protein 7.6 g/dL (6.3-8.2)
[2022-04-10 05:12] LABS: Alpha Fetoprotein 2.9 ng/mL (0.0-8.4)
== END ==
PROVIDERS: PCP Student in an Organized Health Care Education/Training Program; Referring Provider Specialist; Visit Provider Specialist
DX: K74.60 Unspecified cirrhosis of liver (principal); R18.8 Other ascites
CPT/HCPCS: 36415; 80053; 82105

== ENCOUNTER 2022-05-21 12:50 | Emergency (ER) | payer MEDICARE, SELFPAY ==
[2022-01-02 13:00] VITALS: BMI 21.3
[2022-05-21] VITALS (15 sets, daily range): BP systolic 92–135; BP diastolic 54–77; PULSE 75–86; RESP 16–30; TEMP 36.4; O2SAT 97–100; BMI 21.7
--- NOTE | 2022-05-21 13:05 | DI.RAD.S_ITS ---
PROCEDURE: XR CHEST 1V INDICATIONS: chest pain TECHNIQUE: One view of the chest was acquired. COMPARISON: [facility], , XR CHEST 1V, 01/02/2022, 7:41. [facility], , CHEST 2 VIEW, 06/17/2014, 10:14. FINDINGS: Surgical changes and devices: None. Lungs and pleura: Lung volumes are low. No definite suspicious focal airspace opacity visualized. No pleural effusions or pneumothorax. Mediastinum: Mediastinal contours appear normal. Heart size is normal. Bones and chest wall: No suspicious bony lesions. Overlying soft tissues appear unremarkable. IMPRESSION: No acute cardiopulmonary abnormality. Dictated by: Edin Tenorio M.D. on 05/21/2022 at 13:24 Approved by: Edin Tenorio M.D. on 05/21/2022 at 13:27
--- NOTE | 2022-05-21 13:07 | DI.CT.S_ITS ---
PROCEDURE: CT HEAD/BRAIN WO CON INDICATIONS: fall hit head, denies thinners TECHNIQUE: Noncontrast 4.5 mm thick angled axial sections acquired from the foramen magnum to the vertex, with coronal and sagittal reformats. For radiation dose reduction, the following was used: automated exposure control, adjustment of mA and/or kV according to patient size. COMPARISON: [facility], CT, CT HEAD/BRAIN WO CON, 07/30/2019, 11:34. FINDINGS: Image quality: Excellent. CSF spaces: Basal cisterns are patent. No extra-axial fluid collections. Ventricles are normal in size and shape. Brain: No midline shift. No intracranial masses or hemorrhage. Parsons-white matter interface is normal. Atrophy and chronic ischemic change Skull and face: Calvarium and visualized facial bones are intact, without suspicious lesions. Sinuses: Right maxillary sinus mucosal thickening IMPRESSION: Atrophy and white matter chronic ischemic change without acute hemorrhage or mass effect Approved by: Aron Leger M.D. on 05/21/2022 at 12:50
[2022-05-21 13:12] LABS: Add Manual Diff / Slide Review NO; Basophils Absolute Auto 100 /uL (0-100); Basophils Percent Auto 0.7 % (0-2); Eosinophils Absolute Auto 100 /uL (0-450); Eosinophils Percent Auto 0.7 % (2-4); Hematocrit 39.6 % (41-53); Hemoglobin 13.9 g/dL (13.5-17.5); Lymphocytes Absolute Auto 800 /uL (1100-4500); Mean Corpuscular Hemoglobin 29.2 PG (26-34); Mean Corpuscular Volume 83.4 fL (80-100); Monocytes Absolute Auto 800 /uL (0-900); Monocytes Percent Auto 10.6 % (3-14); Neutrophils Absolute Auto 5700 /uL (1500-7000); Platelet Count 200 X10^3/uL (150-400); Red Blood Cell Count 4.74 X10^6/uL (4.5-5.9); Red Cell Distribution Width 14.9 % (11.6-14.8); White Blood Cell Count 7.3 X10^3/uL (4.5-11.0)
[2022-05-21 13:25] LABS: Alanine Aminotransferase 39 IU/L (<50); Albumin 4.3 g/dL (3.5-5.0); Albumin Globulin Ratio 1.3 (1.0-2.8); Alkaline Phosphatase 285 U/L (38-126); Aspartate Aminotransferase 33 IU/L (17-59); BUN Creatinine Ratio 41.4 (6-22); Bilirubin Total 1.6 mg/dL (0.2-1.3); Blood Urea Nitrogen 48 mg/dL (9-20); Calcium 9.2 mg/dL (8.4-10.2); Carbon Dioxide 21 mmol/L (22-32); Chloride 102 mmol/L (98-107); Creatine Kinase 43 U/L (55-170); Estimated Glomerular Filt Rate > 60 mL/min (>60); Globulin 3.4 g/dL (1.7-4.1); Glucose 106 mg/dL (80-110); HEMOLYSIS < 15 (0-50); Lipase 218 U/L (23-300); Potassium 4.2 mmol/L (3.4-5.1); Sodium 134 mmol/L (137-145); Total Protein 7.7 g/dL (6.3-8.2)
[2022-05-21 13:29] LABS: INR 1.3 (0.9-1.3); Prothrombin Time 15.3 SECONDS (10.1-12.7)
[2022-05-21 13:32] LABS: PTT Partial Thromboplastin Tim 31 SECONDS (26-36)
[2022-05-21 13:35] LABS: Troponin I < 0.012 ng/mL (0.01-0.034)
--- NOTE | 2022-05-21 13:49 | PC.NURSE ---
Irrigated skin tear to left forearm. Patient tolerated well. Cleaned dried blood to forehead and to right of face. Approximate 1 inch laceration above right eye.
--- NOTE | 2022-05-21 14:02 | DI.RAD.S_ITS ---
PROCEDURE: XR ELBOW RT MIN 3V INDICATIONS: trauma, fall TECHNIQUE: 3 views of the elbow were acquired. COMPARISON: None. FINDINGS: Bones: There is a questionable radiolucency of the radial head visualized only on the oblique view. No other fracture or dislocation. There is moderate degenerative change at the elbow joint. Soft tissues: There is likely a small elbow joint effusion. IMPRESSION: Elbow joint effusion and questionable radial head fracture which is poorly characterized. No other fracture or dislocation. Dictated by: Anai Schaffer M.D. on 05/21/2022 at 14:32 Approved by: Anai Schaffer M.D. on 05/21/2022 at 14:33
[2022-05-21] MEDS: BACITRACIN OINT 0.9 GM PCKT 1 APPLIC TOP (14:10)
[2022-05-21] MEDS: LIDOCAINE 2% INJ SDV 5 ML (14:11)
--- NOTE | 2022-05-21 14:14 | ED_ITS ---
HPI - Fall <SOHA Riggins - Last Filed: 05/21/22 20:05> General Chief Complaint: Fall Stated Complaint: trip and fall off boat Time Seen by Provider: 05/21/22 13:49 Source: patient and EMS Mode of arrival: EMS History of Present Illness HPI Narrative: This is a 77-year-old male with history of cirrhosis of the liver with portal hypertension, prior hip fracture, gout, migraines and chronic back pain who p resents to the emergency department after what he says was a moment of lightheadedness and dizziness with hypotension due to his water pills. Patient states that he must have tripped fell forward in his boat and has multiple injuries including a laceration above his right eye, ecchymosis to his face, a small laceration to his left elizabeth with an abrasion on his right forearm and complained of right elbow pain. Patient states that he has a history of gallstones but has never had pain. Patient denies any history of kidney disease, states that he has been taking midodrine to help his blood pressure for quite some time but also has been taking furosemide and spironolactone for his ascites. States that his primary care provider is Dr. Silva, he denies any recent illness, states that he has bee n taking his medications as prescribed but states that he felt a little bit lightheaded when he stood up fast this morning and then fell right afterwards. Denies any recent fever, denies nausea, vomiting or neck pain. Denies remembering when his last tetanus vaccination was. Related Data Previous Rx's Medication Instructions Recorded furosemide 40 mg tablet 40 mg PO DAILY PRN Abdominal 01/06/22 Distention #0 tabs spironolactone 50 mg tablet 50 mg PO DAILY PRN Abdominal 01/06/22 Distention #30 tabs midodrine 2.5 mg tablet 2.5 mg PO TID #90 tabs 01/23/22 Allergies Allergy/AdvReac Type Severity Reaction Status Date / Time No Known Drug Allergies Allergy Verified 01/16/22 16:27 Review of Systems <SOHA Riggins - Last Filed: 05/21/22 20:05> Review of Systems Narrative: Review of systems is negative for acute abnormalities unless otherwise noted in HPI Patient History <SOHA Riggins - Last Filed: 05/21/22 20:05> Medical History Abnormal chest x-ray Ascites due to alcoholic cirrhosis Chicken pox Chronic back pain (~1981) Colon polyps Gout (~2007) Hearing loss (~1983) Hemorrhoid (~1984) History of varicose veins (~1987) Knee pain (~1965) 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 Mother Cancer Sister Cancer History of heart disease Hypertension Social History marital status: household members: spouse Smoking Status: Former smoker alcohol intake: former additional social history: Lives at home with his . His uses a walker and not be able to assist him. Smoking Status: Former smoker alcohol intake frequency: holidays/special occasions only Alcohol type: hard liquor Substance Use Type: does not use Exam <SOHA Riggins - Last Filed: 05/21/22 20:05> Narrative Exam Narrative: Reviewed vitals signs and nursing notes. General: cooperative, comfortable, in no acute distress, well groomed, patient is bleeding above his right eye, laceration is approximately 2 cm in his right eyebrow HEENT: symmetrical facial expressions, moist mucous membranes, no nystagmus, EOMI, without any vision changes currently, denies eye pain with eye movement, left scleral hemorrhage Cardiovascular: regular rate and rhythm, no peripheral edema, warm extremities Respiratory: normal effort, able to speak in complete sentences, without wheezing, stridor, or abnormal breath sounds. No retractions or tachypnea. GI: abdomen soft, tender to palpation in the right upper quadrant, mild distension without masses, rebound tenderness or exquisite tenderness with exam. MSK: moves all extremities, neurovascularly intact, no weakness, normal tone, right elbow tenderness and swelling, able to extend mostly but not fully, able to flex fully with normal right shoulder range of motion. Tenderness on the proximal radial head with concern for fracture, CT is pending, radial pulses 2+ Skin: brisk capillary refill, without pallor or erythema laceration above his right eye approximately 2 cm long, laceration to his left elizabeth approximately 1 cm long, abrasion to his right forearm without skin tear or laceration, Neuro: normal speech and cognition, A&O x3, ambulatory, clear speech Psych: mental status is grossly normal, congruent mood, normal affect, pleasant and cooperative Initial Vital Signs Initial Vital Signs: Vital Signs Blood Pressure 92/54 L 05/21/22 12:52 <Jazmin Raymond MD - Last Filed: 05/24/22 07:11> Initial Vital Signs Initial Vital Signs: Vital Signs Blood Pressure 92/54 L 05/21/22 12:52 Procedures <SOHA Riggins - Last Filed: 05/21/22 20:05> Laceration Repair Laceration 1: Site: face Size (cm): 2 Description: linear Depth: simple, single layer Local Anesthetic: lidocaine 1% Amount of anesthesia used (mL): 2 Pre-repair: wound explored, irrigated extensively and deep structures in tact Skin layer closed with: nylon Skin layer suture size: 6-0 Number of sutures: 5 Technique: simple, interrupted Laceration 2: Site: lower extremity Side (If applicable): left Size (cm): 1 Description: linear Depth: simple, single layer Local Anesthetic: lidocaine 1% Amount of anesthesia used (mL): 2 Pre-repair: wound explored, irrigated extensively and deep structures intact Skin layer closed with: nylon Skin layer suture size: 6-0 Number of sutures: 2 Technique: horizontal mattress Course <SOHA Riggins - Last Filed: 05/21/22 20:05> Orders Ordered: Discontinued Medications Bacitracin (Bacitracin Oint 0.9 Gm Pckt) 1 applic TOP NOW ONE Stop: 05/21/22 14:07 Last Admin: 05/21/22 14:10 Dose: 1 applic Documented By: CLAY Diphtheria/Tetanus/Acell Pertussis (Tet,Diph,Pertuss(Acell),Vac/Pf 0.5 Ml Syringe) 0.5 ml IM .ONCE ONE Stop: 05/21/22 14:17 Last Admin: 05/21/22 15:39 Dose: 0.5 ml Documented By: CLAY Lidocaine HCl (Lidocaine 2% Inj Mdv 20ml) 1 ml SUBCUT NOW ONE Stop: 05/21/22 14:03 Last Admin: 05/21/22 14:11 Dose: Not Given Documented By: CLAY Vital Signs Vital signs: Vital Signs - 8 hr 05/21/22 13:00 05/21/22 12:52 05/21/22 12:53 Temperature 97.6 F Pulse Rate 85 84 Respiratory Rate 16 Blood Pressure 92/54 L 92/54 L Pulse Oximetry 97 97 Oxygen Delivery Method Room Air 05/21/22 12:58 05/21/22 12:58 05/21/22 13:00 Temperature Pulse Rate 85 86 Respiratory Rate 23 17 Blood Pressure 117/76 Pulse Oximetry 97 97 Oxygen Delivery Method 05/21/22 13:08 05/21/22 13:08 05/21/22 13:22 Temperature Pulse Rate 83 84 Respiratory Rate 17 21 Blood Pressure 110/70 Pulse Oximetry 97 98 Oxygen Delivery Method 05/21/22 13:22 05/21/22 13:30 05/21/22 13:30 Temperature Pulse Rate 82 Respiratory Rate 19 Blood Pressure 118/74 115/74 Pulse Oximetry 99 Oxygen Delivery Method 05/21/22 14:00 05/21/22 14:00 05/21/22 14:30 Temperature Pulse Rate 82 83 Respiratory Rate 20 Blood Pressure 104/74 Pulse Oximetry 100 98 Oxygen Delivery Method 05/21/22 14:31 05/21/22 14:31 05/21/22 15:00 Temperature Pulse Rate 82 Respiratory Rate 30 H Blood Pressure 123/74 117/70 Pulse Oximetry 100 Oxygen Delivery Method 05/21/22 15:00 05/21/22 15:28 05/21/22 15:28 Temperature Pulse Rate 78 86 Respiratory Rate 19 16 Blood Pressure 135/76 Pulse Oximetry 99 99 Oxygen Delivery Method 05/21/22 15:30 05/21/22 15:30 05/21/22 16:00 Temperature Pulse Rate 84 Respiratory Rate Blood Pressure 127/77 127/74 Pulse Oximetry 99 Oxygen Delivery Method 05/21/22 16:00 05/21/22 16:30 Temperature Pulse Rate 78 75 Respiratory Rate 19 19 Blood Pressure Pulse Oximetry 97 98 Oxygen Delivery Method <Jazmin Raymond MD - Last Filed: 05/24/22 07:11> Orders Ordered: Discontinued Medications Bacitracin (Bacitracin Oint 0.9 Gm Pckt) 1 applic TOP NOW ONE Stop: 05/21/22 14:07 Last Admin: 05/21/22 14:10 Dose: 1 applic Documented By: CLAY Diphtheria/Tetanus/Acell Pertussis (Tet,Diph,Pertuss(Acell),Vac/Pf 0.5 Ml Syringe) 0.5 ml IM .ONCE ONE Stop: 05/21/22 14:17 Last Admin: 05/21/22 15:39 Dose: 0.5 ml Documented By: CLAY Lidocaine HCl (Lidocaine 2% Inj Mdv 20ml) 1 ml SUBCUT NOW ONE Stop: 05/21/22 14:03 Last Admin: 05/21/22 14:11 Dose: Not Given Documented By: CLAY Vital Signs Vital signs: Vital Signs - 8 hr 05/21/22 13:00 05/21/22 12:52 05/21/22 12:53 Temperature 97.6 F Pulse Rate 85 84 Respiratory Rate 16 Blood Pressure 92/54 L 92/54 L Pulse Oximetry 97 97 Oxygen Delivery Method Room Air 05/21/22 12:58 05/21/22 12:58 05/21/22 13:00 Temperature Pulse Rate 85 86 Respiratory Rate 23 17 Blood Pressure 117/76 Pulse Oximetry 97 97 Oxygen Delivery Method 05/21/22 13:08 05/21/22 13:08 05/21/22 13:22 Temperature Pulse Rate 83 84 Respiratory Rate 17 21 Blood Pressure 110/70 Pulse Oximetry 97 98 Oxygen Delivery Method 05/21/22 13:22 05/21/22 13:30 05/21/22 13:30 Temperature Pulse Rate 82 Respiratory Rate 19 Blood Pressure 118/74 115/74 Pulse Oximetry 99 Oxygen Delivery Method 05/21/22 14:00 05/21/22 14:00 05/21/22 14:30 Temperature Pulse Rate 82 83 Respiratory Rate 20 Blood Pressure 104/74 Pulse Oximetry 100 98 Oxygen Delivery Method 05/21/22 14:31 05/21/22 14:31 05/21/22 15:00 Temperature Pulse Rate 82 Respiratory Rate 30 H Blood Pressure 123/74 117/70 Pulse Oximetry 100 Oxygen Delivery Method 05/21/22 15:00 05/21/22 15:28 05/21/22 15:28 Temperature Pulse Rate 78 86 Respiratory Rate 19 16 Blood Pressure 135/76 Pulse Oximetry 99 99 Oxygen Delivery Method 05/21/22 15:30 05/21/22 15:30 05/21/22 16:00 Temperature Pulse Rate 84 Respiratory Rate Blood Pressure 127/77 127/74 Pulse Oximetry 99 Oxygen Delivery Method 05/21/22 16:00 05/21/22 16:30 Temperature Pulse Rate 78 75 Respiratory Rate 19 19 Blood Pressure Pulse Oximetry 97 98 Oxygen Delivery Method MDM - Fall <SHAGGY RigginsP - Last Filed: 05/21/22 20:05> Lab Data Result diagrams: 05/21/22 13:00 05/21/22 13:00 Labs: Lab Results 05/21/22 05/21/22 05/21/22 Range/Units 13:00 13:00 13:00 WBC 7.3 (4.5-11.0) X10^3/uL RBC 4.74 (4.5-5.9) X10^6/uL Hgb 13.9 (13.5-17.5) g/dL Hct 39.6 L (41-53) % MCV 83.4 (80-100) fL MCH 29.2 (26-34) PG MCHC 35.0 (30-36) % RDW 14.9 H (11.6-14.8) % Plt Count 200 (150-400) X10^3/uL Neut % (Auto) 77.0 H (50-75) % Lymph % (Auto) 11.0 L (25-40) % [facility] % (Auto) 10.6 (3-14) % Eos % (Auto) 0.7 L (2-4) % Baso % (Auto) 0.7 (0-2) % Neut # (Auto) 5700 (6980-7364) /uL Lymph # (Auto) 800 L (9081-2587) /uL [facility] # (Auto) 800 (0-900) /uL Eos # (Auto) 100 (0-450) /uL Baso # (Auto) 100 (0-100) /uL PT 15.3 H (10.1-12.7) SECONDS INR 1.3 (0.9-1.3) APTT 31 (26-36) SECONDS Sodium 134 L (137-145) mmol/L Potassium 4.2 (3.4-5.1) mmol/L Chloride 102 (98-107) mmol/L Carbon Dioxide 21 L (22-32) mmol/L BUN 48 H (9-20) mg/dL Creatinine 1.16 (0.66-1.25) mg/dL Estimated GFR > 60 (>60) mL/min BUN/Creatinine Ratio 41.4 H (6-22) Glucose 106 (80-110) mg/dL Calcium 9.2 (8.4-10.2) mg/dL Magnesium 2.0 (1.6-2.3) mg/dL Total Bilirubin 1.6 H (0.2-1.3) mg/dL AST 33 (17-59) IU/L ALT 39 (<50) IU/L Alkaline Phosphatase 285 H (38-126) U/L Total Creatine Kinase 43 L (55-170) U/L CK-MB (CK-2) TNP CK-MB (CK-2) Rel Index TNP Troponin I < 0.012 (0.01-0.034) ng/mL Total Protein 7.7 (6.3-8.2) g/dL Albumin 4.3 (3.5-5.0) g/dL Globulin 3.4 (1.7-4.1) g/dL Albumin/Globulin Ratio 1.3 (1.0-2.8) Lipase 218 (23-300) U/L Imaging Data US - abdomen: Radiologist's Impression: PROCEDURE:? US ABDOMEN COMPLETE ? INDICATIONS:? ELEVATED TOTAL BILIRUBIN ? TECHNIQUE:? Real-time scanning was performed of the abdominal and retroperitoneal organs, with image documentation.? ? COMPARISON:? [facility], US, US ABDOMEN LIMITED, 04/18/2022, 8:07.? [facility], CT, CT ABDOMEN PELVIS W CON, 05/21/2022, 15:27. ? FINDINGS:? ? Liver:? Liver length of 19.1 centimeters.? Heterogeneous in appearance.? A few simple liver cysts are present.? Main portal vein is patent with antegrade flow. ? Gallbladder:? Multiple small mobile stones and sludge are present.? There is mild thickening of the gallbladder wall measuring up to 4 millimeters.? No sonographic Mullen sign elicited. ? Biliary ducts:? Intrahepatic bile ducts are non-dilated.? Extrahepatic bile duct caliber measures 6 mm.? Normal is 6-7 mm or less in diameter, or 10 mm or less post-cholecystectomy.? ? Pancreas:? Visualized portions of the pancreas are sonographically normal.? ? Spleen:? Spleen is normal in size and homogeneous in echotexture.? ? Kidneys:? Right kidney measures 11.5 cm long; left kidney measures 9.1 cm long.? No hydronephrosis or nephrolithiasis.? No solid masses.? ? Aorta:? Visualized aorta is normal in caliber at less than 3 cm.? ? Iliacs:? Not well visualized due to bowel gas. ? IVC:? Intrahepatic inferior vena cava is patent.? ? Miscellaneous:? Mild-moderate amount of abdominal free fluid present. There may be a few thin septations in the epigastric region. ? ? IMPRESSION:? 1. No biliary ductal dilation demonstrated. 2. The liver is heterogeneous in appearance, a nonspecific finding that can be seen in the setting of chronic liver disease. 3. Mild-moderate amount of abdominal free fluid present. 4. Multiple gallstones are present in the gallbladder.? There is also mild thickening of the gallbladder wall, however this is a nonspecific finding and can be seen in the setting of chronic liver disease or in the presence of abdominal free fluid, in addition to cholecystitis.? Clinical correlation for acute cholecystitis may be helpful.? No sonographic Mullen sign was elicited.? ? ? Dictated by: Edin Tenorio M.D. on 05/21/2022 at 15:41 ? ? Approved by: Edin Tenorio M.D. on 05/21/2022 at 15:49 ? CT scan - abdomen/pelvis: Radiologist's Impression: PROCEDURE:? CT ABDOMEN PELVIS W CON ? INDICATIONS:? Abdominal pain ? TECHNIQUE:? After the administration of intravenous contrast, axial sections acquired from the lung bases to the pubic symphysis.? Coronal and sagittal reformats were performed.? For radiation dose reduction, the following was used:? automated exposure control, adjustment of mA and/or kV according to patient size.? ? COMPARISON:? [facility], CT, CT ABDOMEN PELVIS WITH CONTRAST, 03/11/2021, 15:25.? [facility], , US ABDOMEN COMPLETE, 05/21/2022, 14:38.? [facility], CT, CT ABDOMEN PELVIS W CON, 12/10/2020, 17:58. ? FINDINGS: ? Lower thorax: The lung bases are clear.? Heart size normal.? No hiatal hernia.? Small periesophageal venous varices noted. ? Liver:? Hepatomegaly and hepatic cirrhosis present without focal mass lesion.? There is a hypodensity in the right hepatic lobe reflecting cyst.? Portal vein appears patent and enhancing. ? Biliary system:? Cholelithiasis ? Pancreas:? Unremarkable without mass or inflammation evident. ? Spleen:? The spleen is enlarged at 12.5.? No intrinsic mass lesion. ? Adrenals:? Normal morphology and density. ? Reproductive system:? Unremarkable as visualized. ? Urinary system:? Normal renal size and attenuation. No renal calculi, hydronephrosis, or solid mass present.? Urinary bladder unremarkable. ? Gastrointestinal system:? The bowel is unremarkable without evidence of bowel obstruction or inflammation. The stomach appears unremarkable. ? Appendix:? No findings to suggest acute appendicitis. ? Peritoneal spaces:? No mesenteric or retroperitoneal adenopathy.? No free air.? No free fluid.? ? Vasculature:? Aortic atherosclerotic vascular calcification noted without evidence of aneurysm. ? Abdominal wall:? Abdominal wall intact without evidence of ventral or inguinal hernias. ? Musculoskeletal:? Normal bone mineralization.? Degenerative disc disease and arthropathy noted in lower lumbar spine.? Orthopedic pins in the left proximal femur remain unchanged.? No acute fractures.? ? IMPRESSION: ? 1. Hepatic cirrhosis, splenomegaly and paracentral venous varices.? Moderate to severe ascites has improved from the prior CT. ? 2. Septations on recent ultrasound probably reflected debris or mesenteric leaves in moderate ascites ? 3. Chronic findings as above ? ? Approved by: Aron Leger M.D. on 05/21/2022 at 14:55? Rt arm CT: Radiologist's Impression: PROCEDURE:? CT UE RT WO CON ? INDICATIONS:? c/f radial head fx ? TECHNIQUE:? Noncontrast 1-1.5 mm axial sections were acquired through the elbow joint, with coronal and sagittal reformats.? ? COMPARISON:? [facility], CR, XR ELBOW RT MIN 3V, 05/21/2022, 14:03. ? FINDINGS:? Image quality:? Excellent.? ? Bones:? The proximal radius is intact.? Degenerative spurring is seen at the coronoid process of the ulna.? Posterior olecranon enthesophytes are present. ? Soft tissues:? Small joint effusion.? Multiple small calcific foci within the elbow joint may represent small loose bodies.? Small calcifications adjacent to the medial and lateral epicondyles may indicate underlying tendinopathy.? The articular cartilages, ligaments, and tendons are not well evaluated with standard CT. ? IMPRESSION:? 1. No definite acute fracture identified.? If there is continued clinical concern or suspicion for trabecular bone injury or soft tissue injury, MRI of the elbow could be performed for further evaluation assuming no contraindication. 2. Small joint effusion.? Small calcific foci within the joint may represent intra-articular loose bodies. ? ? Dictated by: Edin Muir M.D. on 05/21/2022 at 16:38 ? ? Approved by: Edin Muir M.D. on 05/21/2022 at 16:43 ? Extremity x-ray #1: Radiologist's Impression: PROCEDURE:? XR ELBOW RT MIN 3V ? INDICATIONS:? trauma, fall ? TECHNIQUE:? 3 views of the elbow were acquired.? ? COMPARISON:? None. ? FINDINGS:? ? Bones:? There is a questionable radiolucency of the radial head visualized only on the oblique view.? No other fracture or dislocation.? There is moderate degenerative change at the elbow joint. ? Soft tissues:? There is likely a small elbow joint effusion. ? ? IMPRESSION:? Elbow joint effusion and questionable radial head fracture which is poorly characterized.? No other fracture or dislocation. ? ? Dictated by: Anai Schaffer M.D. on 05/21/2022 at 14:32 ? ? Approved by: Anai Schaffer M.D. on 05/21/2022 at 14:33 ? CT scan - head: Radiologist's Impression: PROCEDURE:? CT HEAD/BRAIN WO CON ? INDICATIONS:? fall hit head, denies thinners ? TECHNIQUE:? Noncontrast 4.5 mm thick angled axial sections acquired from the foramen magnum to the vertex, with coronal and sagittal reformats.? For radiation dose reduction, the following was used:? automated exposure control, adjustment of mA and/or kV according to patient size.? ? COMPARISON:? [facility], CT, CT HEAD/BRAIN WO CON, 07/30/2019, 11:34. ? FINDINGS:? Image quality:? Excellent.? ? CSF spaces:? Basal cisterns are patent.? No extra-axial fluid collections.? Ventricles are normal in size and shape.? ? Brain:? No midline shift.? No intracranial masses or hemorrhage.? Parsons-white matter interface is normal.? Atrophy and chronic ischemic change ? Skull and face:? Calvarium and visualized facial bones are intact, without suspicious lesions.? ? Sinuses:? Right maxillary sinus mucosal thickening ? IMPRESSION:? Atrophy and white matter chronic ischemic change without acute hemorrhage or mass effect ? ? ? Approved by: Aron Leger M.D. on 05/21/2022 at 12:50? MDM Narrative Medical decision making narrative: This is a 69-year-old male presents to the emergency department after he had a near syncopal episode with postural dizziness and fell forward injuring his head and has multiple abrasions and contusions. Patient has a history liver cirrhosis due to alcohol use, he is not on anticoagulants, he also has a history of gallstones. Came in complaining primarily of right elbow pain, he appeared concussed with a headache and initially had blurry vision which later resolved. Head CT is negative for acute hemorrhage or mass effect, it shows atrophy and white matter chronic ischemic changes, right elbow x-ray shows a small elbow joint effusion and questionable radial head fracture which is poorly characterized on x-ray with a questionable radiolucency of the radial head. This was later CT'd which does not show any definite acute fracture identified. It does show a small joint effusion with small calcific foci within the joint, this may represent intra-articular loose bodies. Patient had right upper quadrant tenderness with palpation and elevated liver enzymes with a total bilirubin today at 1.6. An abdominal ultrasound was obtained and shows no biliary ductal dilation, liver is heterogeneous in appearance, mild to moderate amount of abdominal free fluid/ascites, multiple gallstones present in the gallbladder with mild thickening of the gallbladder wall, radiologist states this is nonspecific and can be seen in chronic liver disease with presence of abdominal free fluid no sonographic Mullen sign was elicited. Abdomen pelvis CT was obtained for concern about ?septations ?on right upper quadrant ultrasound, CT shows hepatic cirrhosis, splenomegaly, and paracentral venous varices moderate to severe ascites, septations on recent ultrasound probably reflect nicky ris or mesenteric leaves in moderate ascites, only chronic findings as stated above were found on CT. Chest x-ray without any acute cardiopulmonary finding. Patient's lab work does not show any leukocytosis or anemia, his INR is 1.3, sodium of 134 without any other electrolyte abnormalities, creatinine is stable at 1.16, magnesium of 2.0, total bilirubin as discussed earlier is 1.6, alkaline phosphatase is elevated at 285 but consistent with his prior, total CK is 43, troponin is 0.012, lipase is 218. Patient had laceration repair of the laceration above his right eye and of his left elizabeth as noted in procedures, he has ecchymosis to bilateral eyes with scleral hemorrhage on the left, no vision changes currently, I presume he likely has a concussion but has not had any worsening of his symptoms, he declined any pain medication, his tetanus was updated today. He is encouraged to follow-up with his primary care provider, rest for a few days, stay hydrated and return to the emergency department for any worsening of his symptoms. He is encouraged to change positions slowly and schedule a follow-up appointment at his soonest convenience. Discussed concussive symptoms and patient understands to return to the emergency department for any new or worsening symptoms. Patient is appropriate and amenable to discharge home. Vital signs are stable on repeat examination is unremarkable. Patient has been informed of results. Patient has been given strict return to ER precautions for any new or worsening symptoms. Patient understands to follow up closely with outpatient providers as instructed. Patient understands plan and agrees to discharge home. All questions and concerns answered at this time. <Jazmin Raymond MD - Last Filed: 05/24/22 07:11> Lab Data Labs: Lab Results 05/21/22 05/21/22 05/21/22 Range/Units 13:00 13:00 13:00 WBC 7.3 (4.5-11.0) X10^3/uL RBC 4.74 (4.5-5.9) X10^6/uL Hgb 13.9 (13.5-17.5) g/dL Hct 39.6 L (41-53) % MCV 83.4 (80-100) fL MCH 29.2 (26-34) PG MCHC 35.0 (30-36) % RDW 14.9 H (11.6-14.8) % Plt Count 200 (150-400) X10^3/uL Neut % (Auto) 77.0 H (50-75) % Lymph % (Auto) 11.0 L (25-40) % [facility] % (Auto) 10.6 (3-14) % Eos % (Auto) 0.7 L (2-4) % Baso % (Auto) 0.7 (0-2) % Neut # (Auto) 5700 (4048-6148) /uL Lymph # (Auto) 800 L (0049-5806) /uL [facility] # (Auto) 800 (0-900) /uL Eos # (Auto) 100 (0-450) /uL Baso # (Auto) 100 (0-100) /uL PT 15.3 H (10.1-12.7) SECONDS INR 1.3 (0.9-1.3) APTT 31 (26-36) SECONDS Sodium 134 L (137-145) mmol/L Potassium 4.2 (3.4-5.1) mmol/L Chloride 102 (98-107) mmol/L Carbon Dioxide 21 L (22-32) mmol/L BUN 48 H (9-20) mg/dL Creatinine 1.16 (0.66-1.25) mg/dL Estimated GFR > 60 (>60) mL/min BUN/Creatinine Ratio 41.4 H (6-22) Glucose 106 (80-110) mg/dL Calcium 9.2 (8.4-10.2) mg/dL Magnesium 2.0 (1.6-2.3) mg/dL Total Bilirubin 1.6 H (0.2-1.3) mg/dL AST 33 (17-59) IU/L ALT 39 (<50) IU/L Alkaline Phosphatase 285 H (38-126) U/L Total Creatine Kinase 43 L (55-170) U/L CK-MB (CK-2) TNP CK-MB (CK-2) Rel Index TNP Troponin I < 0.012 (0.01-0.034) ng/mL Total Protein 7.7 (6.3-8.2) g/dL Albumin 4.3 (3.5-5.0) g/dL Globulin 3.4 (1.7-4.1) g/dL Albumin/Globulin Ratio 1.3 (1.0-2.8) Lipase 218 (23-300) U/L Discharge Plan Departure Patient Disposition: Home Clinical Impression: Effusion of elbow joint, right, Gallstone, Concussion Fall Qualifiers: Encounter type: initial encounter Qualified Code(s): W19.XXXA - Unspecified fall, initial encounter Head injury due to trauma Qualifiers: Encounter type: initial encounter Qualified Code(s): S09.90XA - Unspecified injury of head, initial encounter Cirrhosis of liver Qualifiers: Hepatic cirrhosis type: unspecified hepatic cirrhosis Ascites presence: with ascites Qualified Code(s): K74.60 - Unspecified cirrhosis of liver Abdominal ascites Qualifiers: Ascites type: other type Qualified Code(s): R18.8 - Other ascites Instructions: Gallstones, Concussion, Cirrhosis, Ascites, DI for Laceration Repair, How to Prevent Falls, DI for Elbow Sprain Activity Restrictions/Additional Instructions: *You have been diagnosed with a fall with a head injury, a laceration above her right eye, left leg, and I believe you have a concussion. Please rest for the next few days and try to recover from this injury, try to avoid any exertional activities. Stay hydrated, please drink plenty of water and if you have vision changes, worsening headache, altered mental status, or any other symptoms please come back to the emergency department for another evaluation. Today your total bilirubin was elevated which I know is not new for you but it was new as of recently, you do have gallstones in your gallbladder but no signs of infection of your gallbladder wall. Please follow-up with your primary care provider for a recheck of your labs and recovery from this injury. Your abdomen shows ascites which is fluid buildup from your cirrhosis. It shows that it is greater than it was prior however does not appear to have any source of bleeding. Please use Tylenol as needed for pain 650 mg every 8 hours as needed. Try to avoid medications if you can for your livers benefit. Please rest and use ice packs on the painful areas. Please follow up with PCP as directed. Return to clinic/ER precautions discussed with patient for new, not-improving, or worsening symptoms. Please keep your wounds covered with a Band-Aid, apply antibiotic ointment as needed and use cool packs to help reduce swelling and bruising. Please have the sutures above your eye removed in 5 days and the sutures in your left leg removed in 7 days. Your can remove them if she knows how on those days. Thank you for your patients today, I encourage you to follow-up with your liver DrJamia And Dr. Coyne. Thank you for coming in for evaluation. Your elbow shows fluid within the joint, this could be due to a sprain but it does not show any fracture of the radial head which is great news. Please use a sling for as long as it is helpful, follow-up with Dr. Coyne for a referral to physical therapy and if you have worsening pain or complications from this elbow please call [facility] and set up an appointment. *What to do: *Please continue to take your regular medications as directed. [ ] New medication prescriptions sent to your pharmacy: [ ] [ ] New medication written as a paper prescription [x ] No new medications given *Please follow up with your primary care provider in 2-3 days, call for an appointment. Let them know you were seen in the Emergency Department and that we asked that you be seen for follow-up. We will electronically transmit a record of today's note if your PCP is in our system *If you do not have a primary care provider please contact [phone] to establish care with one of the [facility] primary care providers. *Return to Emergency Department if you should have any new, worsening, or concerning symptoms, such as [fever greater than 101F, chills, worsening pain, persistent vomiting or other bothersome symptoms]. Prescriptions: No Action midodrine 2.5 mg tablet 2.5 mg PO TID Qty: 90 5RF furosemide 40 mg tablet 40 mg PO DAILY PRN (Reason: Abdominal Distention) Qty: 0 0RF Rx Instructions: as needed for abdominal distension and weight gain for ascites spironolactone 50 mg tablet 50 mg PO DAILY PRN (Reason: Abdominal Distention) Qty: 30 1RF Rx Instructions: as needed with furosemide for abdominal distension and weight gain Referrals: [facility] [Provider Group] Sb Silva MD [Primary Care Provider] - Visit Report Forms: Patient Portal/API <Jazmin Raymond MD - Last Filed: 05/24/22 07:11> [facility]: I was immediately available in the department for consultation throughout this patient's visit. I agree with documentation as above. Jazmin Raymond MD
--- NOTE | 2022-05-21 14:16 | DI.US.S_ITS ---
PROCEDURE: US ABDOMEN COMPLETE INDICATIONS: ELEVATED TOTAL BILIRUBIN TECHNIQUE: Real-time scanning was performed of the abdominal and retroperitoneal organs, with image documentation. COMPARISON: [facility], US, US ABDOMEN LIMITED, 04/18/2022, 8:07. [facility], CT, CT ABDOMEN PELVIS W CON, 05/21/2022, 15:27. FINDINGS: Liver: Liver length of 19.1 centimeters. Heterogeneous in appearance. A few simple liver cysts are present. Main portal vein is patent with antegrade flow. Gallbladder: Multiple small mobile stones and sludge are present. There is mild thickening of the gallbladder wall measuring up to 4 millimeters. No sonographic Mullen sign elicited. Biliary ducts: Intrahepatic bile ducts are non-dilated. Extrahepatic bile duct caliber measures 6 mm. Normal is 6-7 mm or less in diameter, or 10 mm or less post-cholecystectomy. Pancreas: Visualized portions of the pancreas are sonographically normal. Spleen: Spleen is normal in size and homogeneous in echotexture. Kidneys: Right kidney measures 11.5 cm long; left kidney measures 9.1 cm long. No hydronephrosis or nephrolithiasis. No solid masses. Aorta: Visualized aorta is normal in caliber at less than 3 cm. Iliacs: Not well visualized due to bowel gas. IVC: Intrahepatic inferior vena cava is patent. Miscellaneous: Mild-moderate amount of abdominal free fluid present. There may be a few thin septations in the epigastric region. IMPRESSION: 1. No biliary ductal dilation demonstrated. 2. The liver is heterogeneous in appearance, a nonspecific finding that can be seen in the setting of chronic liver disease. 3. Mild-moderate amount of abdominal free fluid present. 4. Multiple gallstones are present in the gallbladder. There is also mild thickening of the gallbladder wall, however this is a nonspecific finding and can be seen in the setting of chronic liver disease or in the presence of abdominal free fluid, in addition to cholecystitis. Clinical correlation for acute cholecystitis may be helpful. No sonographic Mullen sign was elicited. Dictated by: Edin Tenorio M.D. on 05/21/2022 at 15:41 Approved by: Edin Tenorio M.D. on 05/21/2022 at 15:49
--- NOTE | 2022-05-21 15:01 | DI.CT.S_ITS ---
PROCEDURE: CT UE RT WO CON INDICATIONS: c/f radial head fx TECHNIQUE: Noncontrast 1-1.5 mm axial sections were acquired through the elbow joint, with coronal and sagittal reformats. COMPARISON: [facility], CR, XR ELBOW RT MIN 3V, 05/21/2022, 14:03. FINDINGS: Image quality: Excellent. Bones: The proximal radius is intact. Degenerative spurring is seen at the coronoid process of the ulna. Posterior olecranon enthesophytes are present. Soft tissues: Small joint effusion. Multiple small calcific foci within the elbow joint may represent small loose bodies. Small calcifications adjacent to the medial and lateral epicondyles may indicate underlying tendinopathy. The articular cartilages, ligaments, and tendons are not well evaluated with standard CT. IMPRESSION: 1. No definite acute fracture identified. If there is continued clinical concern or suspicion for trabecular bone injury or soft tissue injury, MRI of the elbow could be performed for further evaluation assuming no contraindication. 2. Small joint effusion. Small calcific foci within the joint may represent intra-articular loose bodies. Dictated by: Edin Muir M.D. on 05/21/2022 at 16:38 Approved by: Edin Muir M.D. on 05/21/2022 at 16:43
--- NOTE | 2022-05-21 15:19 | DI.CT.S_ITS ---
PROCEDURE: CT ABDOMEN PELVIS W CON INDICATIONS: Abdominal pain TECHNIQUE: After the administration of intravenous contrast, axial sections acquired from the lung bases to the pubic symphysis. Coronal and sagittal reformats were performed. For radiation dose reduction, the following was used: automated exposure control, adjustment of mA and/or kV according to patient size. COMPARISON: [facility], CT, CT ABDOMEN PELVIS WITH CONTRAST, 03/11/2021, 15:25. [facility], US, US ABDOMEN COMPLETE, 05/21/2022, 14:38. [facility], CT, CT ABDOMEN PELVIS W CON, 12/10/2020, 17:58. FINDINGS: Lower thorax: The lung bases are clear. Heart size normal. No hiatal hernia. Small periesophageal venous varices noted. Liver: Hepatomegaly and hepatic cirrhosis present without focal mass lesion. There is a hypodensity in the right hepatic lobe reflecting cyst. Portal vein appears patent and enhancing. Biliary system: Cholelithiasis Pancreas: Unremarkable without mass or inflammation evident. Spleen: The spleen is enlarged at 12.5. No intrinsic mass lesion. Adrenals: Normal morphology and density. Reproductive system: Unremarkable as visualized. Urinary system: Normal renal size and attenuation. No renal calculi, hydronephrosis, or solid mass present. Urinary bladder unremarkable. Gastrointestinal system: The bowel is unremarkable without evidence of bowel obstruction or inflammation. The stomach appears unremarkable. Appendix: No findings to suggest acute appendicitis. Peritoneal spaces: No mesenteric or retroperitoneal adenopathy. No free air. No free fluid. Vasculature: Aortic atherosclerotic vascular calcification noted without evidence of aneurysm. Abdominal wall: Abdominal wall intact without evidence of ventral or inguinal hernias. Musculoskeletal: Normal bone mineralization. Degenerative disc disease and arthropathy noted in lower lumbar spine. Orthopedic pins in the left proximal femur remain unchanged. No acute fractures. IMPRESSION: 1. Hepatic cirrhosis, splenomegaly and paracentral venous varices. Moderate to severe ascites has improved from the prior CT. 2. Septations on recent ultrasound probably reflected debris or mesenteric leaves in moderate ascites 3. Chronic findings as above Approved by: Aron Leger M.D. on 05/21/2022 at 14:55
[2022-05-21] MEDS: TET,DIPH,PERTUSS(ACELL),VAC/PF 0.5 ML SYRINGE IM (15:39)
== END 2022-05-21 17:14 | disposition home or self-care (01) ==
PROVIDERS: Emergency Medicine; Emergency Provider Nurse Practitioner Critical Care Medicine; PCP Student in an Organized Health Care Education/Training Program
DX: S06.0X0A Concussion without loss of consciousness, initial encounter (principal); S01.81XA Laceration without foreign body of other part of head, initial encounter; S51.011A Laceration without foreign body of right elbow, initial encounter; M25.421 Effusion, right elbow; K74.60 Unspecified cirrhosis of liver; R18.8 Other ascites; K80.20 Calculus of gallbladder without cholecystitis without obstruction; W01.0XXA Fall on same level from slipping, tripping and stumbling without subsequent striking against object, initial encounter; Z23 Encounter for immunization; R03.1 Nonspecific low blood-pressure reading; I45.10 Unspecified right bundle-branch block; I44.0 Atrioventricular block, first degree
CPT/HCPCS: 12001; 12011; 70450; 71045; 73080; 73200; 74177; 76700; 80053; 82550; 83690; 83735; 84484; 85025; 85610; 85730; 90471; 93005; 93010; 99285; 90715; Q9967

== ENCOUNTER → 2022-12-23 07:17 | Outpatient (CLI) | payer MEDICARE, SELFPAY ==
[2022-01-02 13:00] VITALS: BMI 21.3
--- NOTE | 2022-12-23 07:19 | DI.US.S_ITS ---
PROCEDURE: US ABDOMEN LIMITED INDICATIONS: CIRRHOSIS TECHNIQUE: Real-time focused scanning was performed of the abdomen, with image documentation. COMPARISON: [facility], US, US ABDOMEN COMPLETE, 05/21/2022, 14:38. [facility], CT, CT ABDOMEN PELVIS W CON, 05/21/2022, 15:27. FINDINGS: Liver measures 17 cm. Suspected chronic liver disease morphology and cirrhosis. A small cyst is seen in the posterior right lobe measuring 1.5 cm. No focal solid mass is identified. Main portal vein is patent. Cholelithiasis. No sonographic Mullen sign. There is wall thickening of 5-6 mm. CBD measures 5 mm. Mild ascites. IMPRESSION: Mild ascites and chronic liver disease/cirrhosis. No solid liver mass is identified. Consider continued HCC surveillance. Cholelithiasis and wall thickening, nonspecific, without sonographic Mullen sign. Small ascites. Dictated by: Kwesi Cervantes M.D. on 12/23/2022 at 12:12 Approved by: Kwesi Cervantes M.D. on 12/23/2022 at 12:14
== END ==
PROVIDERS: PCP Student in an Organized Health Care Education/Training Program; Referring Provider Internal Medicine Gastroenterology; Visit Provider Internal Medicine Gastroenterology
DX: K70.30 Alcoholic cirrhosis of liver without ascites (principal); K80.20 Calculus of gallbladder without cholecystitis without obstruction
CPT/HCPCS: 76705

== ENCOUNTER → 2022-12-29 10:20 | Outpatient (CLI) | payer MEDICARE, SELFPAY ==
[2022-01-02 13:00] VITALS: BMI 21.3
[2022-12-29 10:52] LABS: Add Manual Diff / Slide Review NO; Basophils Absolute Auto 100 /uL (0-100); Basophils Percent Auto 0.8 % (0-2); Eosinophils Absolute Auto 100 /uL (0-450); Eosinophils Percent Auto 1.8 % (2-4); Hemoglobin 14.4 g/dL (13.5-17.5); Lymphocytes Absolute Auto 700 /uL (1100-4500); Lymphocytes Percent Auto 11.5 % (25-40); Mean Corpuscular HGB Conc 34.3 % (30-36); Mean Corpuscular Hemoglobin 29.3 PG (26-34); Mean Corpuscular Volume 85.3 fL (80-100); Monocytes Absolute Auto 700 /uL (0-900); Monocytes Percent Auto 11.2 % (3-14); Neutrophils Absolute Auto 4700 /uL (1500-7000); Neutrophils Percent Auto 74.7 % (50-75); Platelet Count 203 X10^3/uL (150-400); Red Blood Cell Count 4.92 X10^6/uL (4.5-5.9); Red Cell Distribution Width 14.6 % (11.6-14.8); White Blood Cell Count 6.3 X10^3/uL (4.5-11.0)
[2022-12-29 11:03] LABS: INR 1.3 (0.9-1.3); Prothrombin Time 14.6 SECONDS (10.1-12.7)
[2022-12-29 11:19] LABS: Alanine Aminotransferase 40 IU/L (<50); Albumin 4.2 g/dL (3.5-5.0); Albumin Globulin Ratio 1.4 (1.0-2.8); Alkaline Phosphatase 269 U/L (38-126); Aspartate Aminotransferase 32 IU/L (17-59); BUN Creatinine Ratio 36.5 (6-22); Bilirubin Total 1.4 mg/dL (0.2-1.3); Blood Urea Nitrogen 31 mg/dL (9-20); Calcium 9.2 mg/dL (8.4-10.2); Carbon Dioxide 26 mmol/L (22-32); Chloride 98 mmol/L (98-107); Estimated Glomerular Filt Rate > 60 mL/min (>60); Globulin 2.9 g/dL (1.7-4.1); Glucose 99 mg/dL (80-110); HEMOLYSIS < 15 (0-50); Potassium 4.5 mmol/L (3.4-5.1); Sodium 133 mmol/L (137-145); Total Protein 7.1 g/dL (6.3-8.2)
== END ==
PROVIDERS: PCP Student in an Organized Health Care Education/Training Program; Referring Provider Internal Medicine Gastroenterology; Visit Provider Internal Medicine Gastroenterology
DX: K70.30 Alcoholic cirrhosis of liver without ascites (principal)
CPT/HCPCS: 36415; 80053; 85025; 85610

== ENCOUNTER → 2023-07-20 06:52 | Outpatient (CLI) | payer MEDICARE, SELFPAY ==
[2022-01-02 13:00] VITALS: BMI 21.3
--- NOTE | 2023-07-20 06:53 | DI.US.S_ITS ---
PROCEDURE: US ABDOMEN LIMITED INDICATIONS: ALCOHOLIC CIRRHOSIS OF LIVER TECHNIQUE: Real-time focused scanning was performed of the abdomen, with image documentation. COMPARISON: [facility], US, US ABDOMEN LIMITED, 12/23/2022, 7:23. FINDINGS: Liver measures 16.8 cm in length and demonstrates coarsened echotexture. Two benign cysts are seen in the right hepatic lobe, the larger of which measures 8 mm. No solid hepatic mass is seen sonographically. Hepatopetal flow seen in the main portal vein. Multiple gallstones are seen in the gallbladder. No pericholecystic fluid sonographic Mullen sign is negative. No intrahepatic or extrahepatic biliary ductal dilatation. Common bile duct measures 4 mm in diameter. The pancreas is not well visualized due to overlying bowel gas. Trace free fluid is seen in the right upper quadrant. IMPRESSION: 1. Coarsened hepatic echotexture again seen compatible with chronic liver disease/cirrhosis. No solid hepatic mass is seen sonographically. 2. Cholelithiasis. 3. Trace right upper quadrant ascites. Approved by: Edin Muir M.D. on 07/20/2023 at 13:21
== END ==
PROVIDERS: PCP Student in an Organized Health Care Education/Training Program; Referring Provider Internal Medicine Gastroenterology; Visit Provider Internal Medicine Gastroenterology
DX: K70.30 Alcoholic cirrhosis of liver without ascites (principal); K80.20 Calculus of gallbladder without cholecystitis without obstruction
CPT/HCPCS: 76705

== ENCOUNTER → 2023-07-29 08:51 | Outpatient (CLI) | payer MEDICARE, SELFPAY ==
[2022-01-02 13:00] VITALS: BMI 21.3
[2023-07-29 10:49] LABS: Add Manual Diff / Slide Review NO; Basophils Absolute Auto 0 /uL (0-100); Basophils Percent Auto 0.7 % (0-2); Eosinophils Absolute Auto 200 /uL (0-450); Eosinophils Percent Auto 2.4 % (2-4); Hematocrit 39.5 % (41-53); Hemoglobin 13.7 g/dL (13.5-17.5); Lymphocytes Absolute Auto 800 /uL (1100-4500); Mean Corpuscular HGB Conc 34.6 % (30-36); Mean Corpuscular Volume 86.6 fL (80-100); Monocytes Absolute Auto 800 /uL (0-900); Monocytes Percent Auto 11.2 % (3-14); Neutrophils Absolute Auto 5000 /uL (1500-7000); Neutrophils Percent Auto 73.7 % (50-75); Platelet Count 193 X10^3/uL (150-400); Red Blood Cell Count 4.56 X10^6/uL (4.5-5.9); Red Cell Distribution Width 14.2 % (11.6-14.8); White Blood Cell Count 6.7 X10^3/uL (4.5-11.0)
[2023-07-29 11:02] LABS: INR 1.3 (0.9-1.3); Prothrombin Time 14.8 SECONDS (9.4-12.5)
[2023-07-29 11:11] LABS: Alanine Aminotransferase 36 IU/L (<50); Albumin 4.2 g/dL (3.5-5.0); Albumin Globulin Ratio 1.6 (1.0-2.8); Alkaline Phosphatase 189 U/L (38-126); Aspartate Aminotransferase 32 IU/L (17-59); Bilirubin Total 1.6 mg/dL (0.2-1.3); Blood Urea Nitrogen 45 mg/dL (9-20); Calcium 9.4 mg/dL (8.4-10.2); Carbon Dioxide 28 mmol/L (22-32); Chloride 97 mmol/L (98-107); Estimated Glomerular Filt Rate > 60 mL/min (>60); Globulin 2.6 g/dL (1.7-4.1); Glucose 97 mg/dL (80-110); HEMOLYSIS < 15 (0-50); Potassium 4.6 mmol/L (3.4-5.1); Sodium 132 mmol/L (137-145); Total Protein 6.8 g/dL (6.3-8.2)
== END ==
PROVIDERS: PCP Pediatrics; Referring Provider Internal Medicine Gastroenterology; Visit Provider Internal Medicine Gastroenterology
DX: K70.30 Alcoholic cirrhosis of liver without ascites (principal)
CPT/HCPCS: 36415; 80053; 85025; 85610

== ENCOUNTER → 2023-12-08 09:45 | Outpatient (CLI) | payer MEDICARE, SELFPAY ==
[2022-01-02 13:00] VITALS: BMI 21.3
[2023-12-08 10:31] LABS: Add Manual Diff / Slide Review NO; Basophils Absolute Auto 0 /uL (0-100); Basophils Percent Auto 0.7 % (0-2); Eosinophils Absolute Auto 100 /uL (0-450); Eosinophils Percent Auto 1.8 % (2-4); Hematocrit 39.8 % (41-53); Hemoglobin 13.6 g/dL (13.5-17.5); Lymphocytes Absolute Auto 700 /uL (1100-4500); Lymphocytes Percent Auto 10.9 % (25-40); Mean Corpuscular HGB Conc 34.1 % (30-36); Mean Corpuscular Hemoglobin 29.1 PG (26-34); Mean Corpuscular Volume 85.3 fL (80-100); Monocytes Absolute Auto 600 /uL (0-900); Monocytes Percent Auto 10.4 % (3-14); Neutrophils Absolute Auto 4700 /uL (1500-7000); Neutrophils Percent Auto 76.2 % (50-75); Platelet Count 171 X10^3/uL (150-400); Red Blood Cell Count 4.67 X10^6/uL (4.5-5.9); Red Cell Distribution Width 14.4 % (11.6-14.8); White Blood Cell Count 6.2 X10^3/uL (4.5-11.0)
[2023-12-08 10:52] LABS: INR 1.2 (0.9-1.3)
[2023-12-08 11:06] LABS: Alanine Aminotransferase 34 IU/L (<50); Albumin 3.9 g/dL (3.5-5.0); Albumin Globulin Ratio 1.5 (1.0-2.8); Alkaline Phosphatase 169 U/L (38-126); Aspartate Aminotransferase 31 IU/L (17-59); BUN Creatinine Ratio 31.9 (6-22); Bilirubin Total 1.2 mg/dL (0.2-1.3); Blood Urea Nitrogen 30 mg/dL (9-20); Calcium 9.4 mg/dL (8.4-10.2); Carbon Dioxide 31 mmol/L (22-32); Chloride 97 mmol/L (98-107); Estimated Glomerular Filt Rate > 60 mL/min (>60); Globulin 2.6 g/dL (1.7-4.1); Glucose 105 mg/dL (80-110); HEMOLYSIS < 15 (0-50); Potassium 4.4 mmol/L (3.4-5.1); Sodium 133 mmol/L (137-145); Total Protein 6.5 g/dL (6.3-8.2)
== END ==
PROVIDERS: PCP Family Medicine; Referring Provider Internal Medicine Gastroenterology; Visit Provider Internal Medicine Gastroenterology
DX: K70.31 Alcoholic cirrhosis of liver with ascites (principal)
CPT/HCPCS: 36415; 80053; 85025; 85610

== ENCOUNTER 2023-12-30 12:08 | Day surgery (SDC) | payer MEDICARE, SELFPAY ==
[2022-01-02 13:00] VITALS: BMI 21.3
--- NOTE | 2023-12-30 12:05 | PM.PREOP ---
Pre-operative Note COVID-19 COVID-19 status: Negative Interval Note History & Physical reviewed/Exam performed by Physician: Yes Changes to H&P: No ASA Class (for procedural sedation): III
--- NOTE | 2023-12-30 12:06 | P.OP.EGD_ITS ---
Operative Date/Time/Diagnoses Date of procedure: 12/30/23 Pre-op diagnosis: See indication and findings Procedure & Clinicians Study performed: EGD Indications: Cirrhosis rule out varices Surgeon: Rich Lopez Procedure Notes Procedure in detail: After informed consent was obtained the patient was placed in left lateral decubitus position. The video upper scope was placed into the oropharynx and with the patient's help swallowed into the esophagus. The esophagus stomach and duodenum were carefully examined. On withdrawal, retroflexed the with the GE junction was performed. The scope was removed. The patient tolerated procedure well. Blood loss none Complications none Sedation mac Findings 1. Moderately severe exudative esophagitis most consistent with peptic esophagitis. Involving the last 10-15 cm of esophagus. 2. No esophageal varices 3. Enlarged gastric folds and edema consistent with gastropathy of portal hypertension 4. 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 We consider routine follow-up in 1 year to rule out esophageal varices but he may require repeat EGD in 3-6 months to check for healing while on Nexium.
[2023-12-30 12:33] VITALS: BP 117/70; PULSE 72; RESP 18; TEMP 36.6; O2SAT 96
[2023-12-30] MEDS: LACTATED RINGERS 1,000 ML 42 ML IV (12:55)
[2023-12-30 13:08] VITALS: BP 95/52; PULSE 70; RESP 18; TEMP 36.9; O2SAT 96
[2023-12-30 13:14] VITALS: BP 91/55; PULSE 70; RESP 17; TEMP 36.9; O2SAT 95
[2023-12-30 13:20] VITALS: BP 93/63; PULSE 66; RESP 15; TEMP 36.7; O2SAT 95
[2023-12-30 13:24] VITALS: BP 105/71; PULSE 62; RESP 16; TEMP 36.7; O2SAT 98
[2023-12-30 13:50] VITALS: BP 106/78; PULSE 64; RESP 18; TEMP 37.1
== END 2023-12-30 14:04 | disposition home or self-care (01) ==
PROVIDERS: PCP Family Medicine; Referring Provider Internal Medicine Gastroenterology; Visit Provider Internal Medicine Gastroenterology
PROC: 0DJ08ZZ Inspection of Upper Intestinal Tract, Via Natural or Artificial Opening Endoscopic (ICD-10-PCS; CPT 43235; principal; 2023-12-30 13:30)
DX: K20.90 Esophagitis, unspecified without bleeding (principal); K70.30 Alcoholic cirrhosis of liver without ascites
CPT/HCPCS: 43235; J2704

== ENCOUNTER → 2024-01-06 09:55 | Outpatient (CLI) | payer MEDICARE, SELFPAY ==
[2022-01-02 13:00] VITALS: BMI 21.3
--- NOTE | 2024-01-06 | DI.US.S_ITS ---
PROCEDURE: US ABDOMEN LIMITED INDICATIONS: Alcoholic cirrhosis of liver without ascites TECHNIQUE: Real-time focused scanning was performed of the abdomen, with image documentation. COMPARISON: , , US ABDOMEN LIMITED, 07/20/2023, 6:58. FINDINGS: Liver measures 15.7 cm. Steatosis is present. Multiple simple cysts are present the largest measuring 1.9 cm. Gallbladder is unremarkable. Wall thickness is at the upper limits of normal measuring 3 mm. No intra or extrahepatic biliary dilation. IMPRESSION: Hepatic steatosis with multiple simple cysts. Dictated by: Anny Tapia M.D. on 01/06/2024 at 10:50 Approved by: Anny Tapia M.D. on 01/06/2024 at 10:51
== END ==
LOC: US 09:56
PROVIDERS: PCP Family Medicine; Referring Provider Internal Medicine Gastroenterology; Visit Provider Internal Medicine Gastroenterology
DX: K70.30 Alcoholic cirrhosis of liver without ascites (principal); K76.0 Fatty (change of) liver, not elsewhere classified; K76.89 Other specified diseases of liver
CPT/HCPCS: 76705

== ENCOUNTER → 2024-03-04 14:48 | Outpatient (CLI) | payer MEDICARE, SELFPAY ==
[2022-01-02 13:00] VITALS: BMI 21.3
[2024-03-04 16:03] LABS: Add Manual Diff / Slide Review NO; Basophils Absolute Auto 100 /uL (0-100); Basophils Percent Auto 0.8 % (0-2); Eosinophils Absolute Auto 100 /uL (0-450); Eosinophils Percent Auto 2.2 % (2-4); Hematocrit 38.8 % (41-53); Hemoglobin 13.4 g/dL (13.5-17.5); Lymphocytes Absolute Auto 900 /uL (1100-4500); Mean Corpuscular HGB Conc 34.5 % (30-36); Mean Corpuscular Hemoglobin 29.2 PG (26-34); Mean Corpuscular Volume 84.7 fL (80-100); Monocytes Absolute Auto 600 /uL (0-900); Monocytes Percent Auto 10.5 % (3-14); Neutrophils Absolute Auto 4500 /uL (1500-7000); Neutrophils Percent Auto 72.5 % (50-75); Platelet Count 162 X10^3/uL (150-400); Red Blood Cell Count 4.58 X10^6/uL (4.5-5.9); Red Cell Distribution Width 14.5 % (11.6-14.8); White Blood Cell Count 6.2 X10^3/uL (4.5-11.0)
[2024-03-04 16:14] LABS: INR 1.2 (0.9-1.3); Prothrombin Time 13.7 SECONDS (9.4-12.5)
[2024-03-04 16:19] LABS: Alanine Aminotransferase 30 IU/L (<50); Albumin 4.2 g/dL (3.5-5.0); Albumin Globulin Ratio 1.6 (1.0-2.8); Alkaline Phosphatase 185 U/L (38-126); Aspartate Aminotransferase 28 IU/L (17-59); BUN Creatinine Ratio 34.3 (6-22); Bilirubin Total 1.1 mg/dL (0.2-1.3); Blood Urea Nitrogen 37 mg/dL (9-20); Calcium 9.1 mg/dL (8.4-10.2); Carbon Dioxide 23 mmol/L (22-32); Chloride 99 mmol/L (98-107); Estimated Glomerular Filt Rate > 60 mL/min (>60); Globulin 2.7 g/dL (1.7-4.1); Glucose 91 mg/dL (80-110); HEMOLYSIS < 15 (0-50); Potassium 4.5 mmol/L (3.4-5.1); Sodium 130 mmol/L (137-145); Total Protein 6.9 g/dL (6.3-8.2)
== END ==
PROVIDERS: PCP Family Medicine; Referring Provider Internal Medicine Gastroenterology; Visit Provider Internal Medicine Gastroenterology
DX: K70.30 Alcoholic cirrhosis of liver without ascites (principal)
CPT/HCPCS: 36415; 80053; 85025; 85610

== ENCOUNTER → 2024-07-18 10:23 | Outpatient (CLI) | payer MEDICARE, SELFPAY ==
[2022-01-02 13:00] VITALS: BMI 21.3
[2024-07-18 10:54] LABS: Add Manual Diff / Slide Review NO; Basophils Absolute Auto 0 /uL (0-100); Basophils Percent Auto 0.6 % (0-2); Eosinophils Absolute Auto 100 /uL (0-450); Hematocrit 41.7 % (41-53); Hemoglobin 14.2 g/dL (13.5-17.5); Lymphocytes Absolute Auto 700 /uL (1100-4500); Lymphocytes Percent Auto 11.6 % (25-40); Mean Corpuscular Hemoglobin 29.3 PG (26-34); Mean Corpuscular Volume 86.2 fL (80-100); Monocytes Absolute Auto 700 /uL (0-900); Monocytes Percent Auto 11.2 % (3-14); Neutrophils Absolute Auto 4400 /uL (1500-7000); Neutrophils Percent Auto 74.6 % (50-75); Platelet Count 169 X10^3/uL (150-400); Red Blood Cell Count 4.84 X10^6/uL (4.5-5.9); Red Cell Distribution Width 14.8 % (11.6-14.8); White Blood Cell Count 5.9 X10^3/uL (4.5-11.0)
[2024-07-18 11:23] LABS: Alanine Aminotransferase 35 IU/L (<50); Albumin 4.3 g/dL (3.5-5.0); Albumin Globulin Ratio 1.5 (1.0-2.8); Alkaline Phosphatase 170 U/L (38-126); Aspartate Aminotransferase 38 IU/L (17-59); BUN Creatinine Ratio 29.5 (6-22); Bilirubin Total 1.3 mg/dL (0.2-1.3); Blood Urea Nitrogen 31 mg/dL (9-20); Calcium 9.1 mg/dL (8.4-10.2); Carbon Dioxide 26 mmol/L (22-32); Chloride 102 mmol/L (98-107); Estimated Glomerular Filt Rate > 60 mL/min (>60); Globulin 2.8 g/dL (1.7-4.1); Glucose 99 mg/dL (80-110); HEMOLYSIS < 15 (0-50); Potassium 4.8 mmol/L (3.4-5.1); Sodium 133 mmol/L (137-145); Total Protein 7.1 g/dL (6.3-8.2)
[2024-07-18 11:52] LABS: INR 1.2 (0.9-1.3); Prothrombin Time 13.5 SECONDS (9.4-12.5)
[2024-07-19 07:10] LABS: Alpha Fetoprotein 2.7 ng/mL (0.0-8.4)
== END ==
PROVIDERS: PCP Family Medicine; Referring Provider Internal Medicine Gastroenterology; Visit Provider Internal Medicine Gastroenterology
DX: K70.30 Alcoholic cirrhosis of liver without ascites (principal)
CPT/HCPCS: 36415; 80053; 82105; 85025; 85610

== ENCOUNTER → 2024-09-22 07:20 | Outpatient (CLI) | payer MEDICARE, SELFPAY ==
[2022-01-02 13:00] VITALS: BMI 21.3
--- NOTE | 2024-09-22 | DI.US.S_ITS ---
PROCEDURE: US ABDOMEN LIMITED INDICATIONS: Alcoholic cirrhosis of liver without ascites TECHNIQUE: Real-time scanning was performed of the abdominal and retroperitoneal organs, with image documentation. COMPARISON: [facility], US, US ABDOMEN LIMITED, 01/06/2024, 10:16. FINDINGS: Liver: Liver is normal in size with coarsened echotexture and mildly nodular surface. A few cysts are again seen measuring up to 1.9 cm on the current exam. No solid hepatic mass. Gallbladder: Gallbladder is contracted and not well evaluated. Biliary ducts: Intrahepatic bile ducts are non-dilated. Extrahepatic bile duct caliber measures 5 mm. Normal is 6-7 mm or less in diameter, or 10 mm or less post-cholecystectomy. Pancreas: Not well visualized due to overlying bowel gas. Miscellaneous: No free abdominal fluid. IMPRESSION: Hepatic cirrhosis. No solid mass. Approved by: Edin Muir M.D. on 09/22/2024 at 16:48
== END ==
PROVIDERS: PCP Family Medicine; Referring Provider Internal Medicine; Visit Provider Internal Medicine
DX: K70.30 Alcoholic cirrhosis of liver without ascites (principal)
CPT/HCPCS: 76705

== ENCOUNTER 2024-09-26 07:15 | Day surgery (SDC) | payer MEDICARE, SELFPAY ==
[2022-01-02 13:00] VITALS: BMI 21.3
--- NOTE | 2024-09-26 | PATH_ITS ---
[facility] Accession Number: [id number] No. of containers..01 Tissue . 01 Material submitted: . esophagus - ESOPHAGEAL BIOPSY . 01 Diagnosis: ESOPHAGEAL BIOPSY: Squamous mucosa with no diagnostic alterations. Eosinophils are not increased. [facility] 09/28/2024 1613 Local . 01 Electronically signed: . Noé Nguyen MD, Pathologist NPI- [id number] . 01 Gross description: . Received in formalin with two patient identifiers and esophageal biopsy, are two mello soft tissue fragments, 0.3-0.4 cm in greatest dimension, submitted in A1. ([id number]) /MRV 09/28/20243 Local . 01 Pathologist provided ICD-10: K21.00 . 01 CPT . 355386 Specimen Comment: A courtesy copy of this report has been sent to [phone] Performed at: [address] [facility] [address] [address], [place], [place] [id number] MD Noé Nguyen MD Phone: [phone]
[2024-09-26] MEDS: SODIUM CHLORIDE 0.9% 1,000 ML 84 ML IV (07:28)
[2024-09-26 07:52] VITALS: BP 122/69; PULSE 68; RESP 16; TEMP 36.6; O2SAT 98
--- NOTE | 2024-09-26 08:35 | PM.HP.1 ---
History of Present Illness History of Present Illness Date Patient Seen: 09/26/24 Chief complaint: [facility] Medical History (Updated 05/17/24 @ 15:23 by Gina Miller DO) Atypical squamoproliferative skin lesion Closed left hip fracture Fractured femoral neck Ascites due to alcoholic cirrhosis 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) Squamous cell carcinoma Migraines (~1971) Gout (~2007) Chronic back pain (~1981) Mumps Measles Chicken pox Hearing loss (~1983) Hemorrhoid (~1984) Colon polyps History of varicose veins (~1987) Skin cancer (~1983) Surgical History (Updated 12/13/22 @ 16:56 by Sb Silva MD) Status post hip surgery Anesthesia History of back surgery (~2005) History of right knee surgery (~1990) Family History Father No problems noted. Mother Cancer Sister Cancer History of heart disease Hypertension Social History marital status: household members: spouse Smoking Status: Former smoker alcohol intake: former additional social history: Lives at home with his . His uses a walker and not be able to assist him. Meds Home Medications and Allergies Home Medications Medication Instructions Recorded Confirmed Type spironolactone 50 mg tablet 50 mg PO DAILY PRN Abdominal 01/06/22 09/26/24 Rx Distention #30 tabs furosemide 40 mg tablet 60 mg PO DAILY PRN Abdominal 05/26/22 09/26/24 History Distention pantoprazole 40 mg tablet,delayed 40 mg PO DAILY 12/30/23 09/26/24 History release midodrine 2.5 mg tablet 2.5 mg PO TID #270 tabs 07/25/24 09/26/24 Rx Allergies Allergy/AdvReac Type Severity Reaction Status Date / Time No Known Drug Allergies Allergy Verified 09/26/24 07:35 Exam Vital Signs (past 8 hours): - 09/26/24 07:52 Temperature 97.8 F Pulse Rate 68 Respiratory Rate 16 Blood Pressure 122/69 Pulse Oximetry 98 Oxygen Delivery Method Room Air Oxygen Delivery Method Room Air Narrative Exam Narrative: HEENT normocephalic pupils round react to light oropharynx free of lesions Chest clear to auscultation percussion Assessment & Plan Assessment & Plan narrative: History of significant esophagitis need for repeat check to see if healed. Risks, benefits, alternatives have been explained. Time-Based Coding :: [TOTAL MINUTES] spent with patient and on the chart (including review of chart, obtaining history, exam, reviewing outside data, placing orders, documenting exam and treatment plan, and counseling patient) on [DATE].
--- NOTE | 2024-09-26 08:38 | PM.OP.EGD ---
Operative Date/Time/Diagnoses Date of procedure: 09/26/24 Pre-op diagnosis: See indication and findings Procedure & Clinicians Study performed: EGD Indications: History of significant esophagitis need to check for complete healing Surgeon: Rich Lopez Procedure Notes Procedure in detail: After informed consent was obtained the patient was placed in left lateral decubitus position. The video upper scope was placed into the oropharynx and with the patient's help swallowed into the esophagus. The esophagus stomach and duodenal were carefully examined. On withdrawal, retroflexed view the GE junction was performed. The scope was removed. The patient tolerated procedure well. Blood loss none Complications none Sedation mac Findings 1. Abnormalities in the distal esophagus that do not appear to be primarily inflammatory. Instead there may be some squamous mucosa hypoplasia. Biopsies were taken to rule out esophagitis. 2. GE junction completely normal without any evidence of inflammatory process 3. Normal stomach without definitive gastropathy of portal hypertension 4. Normal duodenal bulb and sweep Will await biopsy results and discuss with Mr. Carpenter over the phone.
[2024-09-26 08:51] VITALS: BP 101/68; PULSE 73; RESP 13; TEMP 36.3; O2SAT 97
[2024-09-26 08:56] VITALS: BP 94/58; PULSE 69; RESP 19; O2SAT 96
[2024-09-26 09:02] VITALS: BP 100/61; PULSE 70; RESP 16; TEMP 37; O2SAT 96
== END 2024-09-26 09:22 | disposition home or self-care (01) ==
PROVIDERS: PCP Family Medicine; Referring Provider Internal Medicine Gastroenterology; Visit Provider Internal Medicine Gastroenterology
PROC: 0DJ08ZZ Inspection of Upper Intestinal Tract, Via Natural or Artificial Opening Endoscopic (ICD-10-PCS; CPT 43239; principal; 2024-09-26 08:30)
DX: K20.90 Esophagitis, unspecified without bleeding (principal); K70.30 Alcoholic cirrhosis of liver without ascites; Z85.828 Personal history of other malignant neoplasm of skin; Z87.891 Personal history of nicotine dependence
CPT/HCPCS: 43239; J2704

== ENCOUNTER → 2024-10-13 08:29 | Outpatient (CLI) | payer MEDICARE, SELFPAY ==
[2022-01-02 13:00] VITALS: BMI 21.3
[2024-10-13 10:05] LABS: Add Manual Diff / Slide Review NO; Basophils Absolute Auto 0 /uL (0-100); Basophils Percent Auto 0.8 % (0-2); Eosinophils Absolute Auto 100 /uL (0-450); Eosinophils Percent Auto 2.8 % (2-4); Hemoglobin 14.2 g/dL (13.5-17.5); Lymphocytes Absolute Auto 600 /uL (1100-4500); Lymphocytes Percent Auto 12.6 % (25-40); Mean Corpuscular HGB Conc 33.9 % (30-36); Mean Corpuscular Hemoglobin 29.5 PG (26-34); Mean Corpuscular Volume 86.8 fL (80-100); Monocytes Absolute Auto 600 /uL (0-900); Monocytes Percent Auto 11.2 % (3-14); Neutrophils Absolute Auto 3700 /uL (1500-7000); Neutrophils Percent Auto 72.6 % (50-75); Platelet Count 167 X10^3/uL (150-400); Red Blood Cell Count 4.84 X10^6/uL (4.5-5.9); White Blood Cell Count 5.1 X10^3/uL (4.5-11.0)
[2024-10-13 10:21] LABS: INR 1.2 (0.9-1.3); Prothrombin Time 13.5 SECONDS (9.4-12.5)
[2024-10-13 10:30] LABS: Alanine Aminotransferase 33 IU/L (<50); Albumin 4.4 g/dL (3.5-5.0); Albumin Globulin Ratio 1.8 (1.0-2.8); Alkaline Phosphatase 147 U/L (38-126); Aspartate Aminotransferase 34 IU/L (17-59); BUN Creatinine Ratio 30.9 (6-22); Bilirubin Total 1.6 mg/dL (0.2-1.3); Blood Urea Nitrogen 34 mg/dL (9-20); Calcium 9.4 mg/dL (8.4-10.2); Carbon Dioxide 28 mmol/L (22-32); Chloride 99 mmol/L (98-107); Estimated Glomerular Filt Rate > 60 mL/min (>60); Globulin 2.5 g/dL (1.7-4.1); Glucose 90 mg/dL (80-110); HEMOLYSIS < 15 (0-50); Potassium 4.8 mmol/L (3.4-5.1); Sodium 133 mmol/L (137-145); Total Protein 6.9 g/dL (6.3-8.2)
== END ==
PROVIDERS: PCP Family Medicine; Referring Provider Internal Medicine; Visit Provider Internal Medicine
DX: K70.30 Alcoholic cirrhosis of liver without ascites (principal)
CPT/HCPCS: 36415; 80053; 85025; 85610

== ENCOUNTER → 2025-05-05 09:18 | Outpatient (CLI) | payer MEDICARE, SELFPAY ==
[2022-01-02 13:00] VITALS: BMI 21.3
[2025-05-05 10:03] LABS: Add Manual Diff / Slide Review NO; Hematocrit 41.3 % (41-53); Hemoglobin 14.3 g/dL (13.5-17.5); Lymphocytes Absolute Auto 900 /uL (1100-4500); Mean Corpuscular HGB Conc 34.6 % (30-36); Mean Corpuscular Hemoglobin 30.1 PG (26-34); Mean Corpuscular Volume 87.2 fL (80-100); Platelet Count 159 X10^3/uL (150-400)
[2025-05-05 10:22] LABS: Alanine Aminotransferase 28 IU/L (<50); Albumin 4.4 g/dL (3.5-5.0); Albumin Globulin Ratio 1.8 (1.0-2.8); Alkaline Phosphatase 114 U/L (38-126); Blood Urea Nitrogen 34 mg/dL (9-20); Calcium 9.2 mg/dL (8.4-10.2); Carbon Dioxide 28 mmol/L (22-32); Chloride 97 mmol/L (98-107); Estimated Glomerular Filt Rate > 60 mL/min (>60); Globulin 2.4 g/dL (1.7-4.1); Glucose 64 mg/dL (70-99); HEMOLYSIS < 15 (0-50); Potassium 4.3 mmol/L (3.4-5.1); Sodium 135 mmol/L (137-145); Total Protein 6.8 g/dL (6.3-8.2)
== END ==
PROVIDERS: Internal Medicine Gastroenterology; PCP Family Medicine; Referring Provider Family Medicine; Visit Provider Family Medicine
DX: K74.60 Unspecified cirrhosis of liver (principal); R53.83 Other fatigue; Z13.29 Encounter for screening for other suspected endocrine disorder
CPT/HCPCS: 36415; 80053; 84402; 84403; 85025

== ENCOUNTER → 2025-05-19 08:50 | Outpatient (CLI) | payer MEDICARE, SELFPAY ==
[2022-01-02 13:00] VITALS: BMI 21.3
[2025-05-19 09:57] LABS: INR 1.2 (0.9-1.3); Prothrombin Time 13.3 SECONDS (9.4-12.5)
[2025-05-29 09:09] LABS: Percent Free Testosterone 2.42 % (1.50-4.20)
== END ==
PROVIDERS: Internal Medicine Gastroenterology; PCP Family Medicine; Referring Provider Family Medicine; Visit Provider Family Medicine
DX: K70.30 Alcoholic cirrhosis of liver without ascites (principal); R53.82 Chronic fatigue, unspecified; R53.83 Other fatigue
CPT/HCPCS: 36415; 84402; 84403; 85610

== ENCOUNTER → 2025-07-21 07:54 | Outpatient (CLI) | payer MEDICARE, SELFPAY ==
[2022-01-02 13:00] VITALS: BMI 21.3
--- NOTE | 2025-07-21 07:55 | DI.US.S_ITS ---
PROCEDURE: US ABDOMEN LIMITED INDICATIONS: Aloholic cirrhosis of liver without ascites TECHNIQUE: Real-time scanning was performed of the abdominal and retroperitoneal organs, with image documentation. COMPARISON: [facility], US, US ABDOMEN LIMITED, 04/21/2025, 9:07. FINDINGS: Liver: Liver measures 14.4 cm. Is overall heterogeneous in echotexture. Simple cysts are unchanged. Heterogeneous focus is present in the lateral left lower lobe measuring 3.4 x 2.3 x 5.9 cm. Gallbladder: Mobile luminal foci of echogenicity are present. Wall thickness is within normal limits measuring 2.9 mm. No wall thickening. No pericholecystic edema. Negative sonographic Mullen's sign. Biliary ducts: Intrahepatic bile ducts are non-dilated. Extrahepatic bile duct caliber measures 4 mm. Normal is 6-7 mm or less in diameter, or 10 mm or less post-cholecystectomy. Pancreas: Visualized portions of the pancreas are sonographically normal. Miscellaneous: No free abdominal fluid. IMPRESSION: Heterogeneous appearance of the liver with new focus of more conspicuous heterogeneity in the left lobe. While this could be benign, is considered indeterminate on the basis of this exam. Further evaluation with CT or MRI with hepatic protocol is recommended for further evaluation. Dictated by: Anny Tapia M.D. on 07/22/2025 at 16:25 Approved by: Anny Tapia M.D. on 07/22/2025 at 16:27
== END ==
LOC: US 07:55
PROVIDERS: PCP Family Medicine; Referring Provider Internal Medicine Gastroenterology; Visit Provider Internal Medicine Gastroenterology
DX: K70.30 Alcoholic cirrhosis of liver without ascites (principal); K76.89 Other specified diseases of liver
CPT/HCPCS: 76705

== ENCOUNTER → 2025-08-02 09:19 | Outpatient (CLI) | payer MEDICARE, SELFPAY ==
[2022-01-02 13:00] VITALS: BMI 21.3
--- NOTE | 2025-08-02 09:20 | DI.CT.S_ITS ---
PROCEDURE: CT ABDOMEN LIVER PROTOCOL INDICATIONS: follow up ultrasound TECHNIQUE: 4 phase scanning was performed. Non-contrast 5 mm axial sections acquired from the diaphragm to the iliac crests. Following the administration of intravenous contrast, 5 mm thick arterial-phase, portal venous-phase, and 5-minute delayed phase images were acquired through the liver. 5 mm thick coronal and sagittal reformats were performed. For radiation dose reduction, the following was used: automated exposure control, adjustment of mA and/or kV according to patient size. COMPARISON: enhancement,[facility], CT, CT ABDOMEN PELVIS W CON, 05/02. 08/2021, 15:27[facility], US, US ABDOMEN LIMITED, 07/21/2025, 8:20. FINDINGS: Image quality: Excellent. Lower chest: Unremarkable. ABDOMEN: Liver: Cirrhosis. Patent portal vein. Scattered hepatic cysts are seen. There is focal heterogeneous, hypoattenuation of segment 3 on the noncontrast phase. Early arterial phase does not demonstrate early enhancement. There is slight hyperattenuation on the portal venous phase, which persists on the delayed sequence. No observations of probably or definitely HCC. Gallbladder: Cholelithiasis without wall thickening or adjacent fat stranding to suggest acute cholecystitis. Biliary ducts: No biliary dilation. Pancreas: No ductal dilation. Spleen: Size is within normal limits. Adrenal Glands: No adrenal nodules. Kidneys and Ureters: No hydronephrosis. No solid mass. No complex renal cystic lesion which requires follow up. Stomach and Bowel: Normal colonic caliber, without significant wall thickening. Peritoneum: Small volume ascites. Ventral Wall: No hernia. Abdominal Nodes: No retroperitoneal or mesenteric adenopathy by size criteria. Vessels: Aorta and inferior vena cava are normal in size. PELVIS: Pelvic Organs: Unremarkable. Bladder: Unremarkable. Pelvic Nodes: No enlarged lymph nodes. Miscellaneous: No inguinal hernias are seen. Bones: No aggressive osseous abnormality. IMPRESSION: Cirrhosis. Heterogeneous attenuation of segment 3 of the liver, without imaging features to suggest HCC. Delayed enhancement could represent a regenerative nodule versus early cholangiocarcinoma. Short-term follow-up is indicated (3 months). Cholelithiasis without wall thickening or adjacent fat stranding to suggest acute cholecystitis. Dictated by: Dewey Shine M.D. on 08/02/2025 at 11:23 Approved by: Dewey Shine M.D. on 08/02/2025 at 11:35
[2025-08-02 09:40] LABS: Estimated Glomerular Filt Rate > 60 mL/min (>60)
== END ==
LOC: CT 09:20
PROVIDERS: PCP Family Medicine; Referring Provider Internal Medicine Gastroenterology; Visit Provider Internal Medicine Gastroenterology
DX: K21.00 Gastro-esophageal reflux disease with esophagitis, without bleeding (principal); K74.60 Unspecified cirrhosis of liver; K76.89 Other specified diseases of liver; K80.20 Calculus of gallbladder without cholecystitis without obstruction
CPT/HCPCS: 36415; 74170; 82565; Q9967